=== PATIENT | male | born 1955 | race Caucasian/White ===

== ENCOUNTER → 2019-08-28 13:51 | Outpatient (BNVA) | payer MEDICARE, MEDICAID, SELFPAY | PROVIDERS: Family Provider Family Medicine; Visit Provider Psychiatry & Neurology Psychiatry | DX: F20.89 Other schizophrenia (principal) | CPT/HCPCS: 99213; J2680 ==

== ENCOUNTER → 2019-09-26 12:45 | Outpatient (BNVA) | payer MEDICARE, MEDICAID, SELFPAY | PROVIDERS: Family Provider Family Medicine; PCP Family Medicine; Visit Provider Psychiatry & Neurology Psychiatry | DX: F20.89 Other schizophrenia (principal); F17.210 Nicotine dependence, cigarettes, uncomplicated; J43.9 Emphysema, unspecified | CPT/HCPCS: 99213; 83036; J2680 ==

== ENCOUNTER → 2019-10-24 13:03 | Outpatient (BNVA) | payer MEDICARE, MEDICAID, SELFPAY | PROVIDERS: Family Provider Family Medicine; PCP Family Medicine; Visit Provider Psychiatry & Neurology Psychiatry | DX: F20.89 Other schizophrenia (principal); F17.210 Nicotine dependence, cigarettes, uncomplicated | CPT/HCPCS: 99213; J2680 ==

== ENCOUNTER → 2019-11-21 07:10 | Outpatient (BNVA) | payer MEDICARE, MEDICAID, SELFPAY | PROVIDERS: Family Provider Family Medicine; PCP Family Medicine; Visit Provider Psychiatry & Neurology Psychiatry | DX: F20.89 Other schizophrenia (principal) | CPT/HCPCS: 99212 ==

== ENCOUNTER → 2019-12-19 07:31 | Outpatient (BNVA) | payer MEDICARE, MEDICAID, SELFPAY | PROVIDERS: Family Provider Family Medicine; PCP Family Medicine; Visit Provider Psychiatry & Neurology Psychiatry | DX: F20.89 Other schizophrenia (principal) | CPT/HCPCS: 99212; J2680 ==

== ENCOUNTER 2020-01-09 13:52 | Outpatient (CLI) | payer MEDICARE, MEDICAID, SELFPAY ==
--- NOTE | 2020-01-09 13:59 | CT_ITS ---
WS: [id number] LDCT LUNG CANCER SCREENING TECHNIQUE: Noncontrast CT of the chest with coronal and sagittal reformatted images. CLINICAL INFORMATION: LUNG SCREEN COMPARISON: None. DLP: 59.83 mGy.cm DIvol: 1.[address] scans at [facility] use at least one of these dose optimization techniques: automat ed exposure control; mA and/or kV adjustment per patient size (includes targeted exams where dose is matched to clinical indication); or iterative reconstruction. FINDINGS: Moderate chronic emphysematous changes. Subsegmental atelectasis in the lung bases. Fibrosis right mi ddle lobe. Aortic calcification. Coronary calcification. No mediastinal or hilar lymphadenopathy. Sma ll esophageal hiatal hernia. Hypertrophic changes thoracic spine. CT/CT lung screening [id number] IMPRESSION: LUNG-RADS: 1-Negative FOLLOW UP: 1 Month LDCT
== END 2020-01-09 13:53 | disposition home or self-care (01) ==
PROVIDERS: PCP Family Medicine; Visit Provider Family Medicine
DX: Z12.2 Encounter for screening for malignant neoplasm of respiratory organs (principal); Z87.891 Personal history of nicotine dependence
CPT/HCPCS: G0297

== ENCOUNTER → 2020-01-17 08:33 | Outpatient (BNVA) | payer MEDICARE, MEDICAID, SELFPAY | PROVIDERS: PCP Family Medicine; Visit Provider Nurse Practitioner Psychiatric/Mental Health | DX: F20.89 Other schizophrenia (principal); F17.200 Nicotine dependence, unspecified, uncomplicated | CPT/HCPCS: 99212; J2680 ==

== ENCOUNTER → 2020-02-14 07:36 | Outpatient (BNVA) | payer MEDICARE, MEDICAID, SELFPAY | PROVIDERS: PCP Family Medicine; Visit Provider Psychiatry & Neurology Psychiatry | DX: F20.89 Other schizophrenia (principal) | CPT/HCPCS: 99213; J2680 ==

== ENCOUNTER → 2020-03-12 12:36 | Outpatient (BNVA) | payer MEDICARE, MEDICAID, SELFPAY | PROVIDERS: PCP Family Medicine; Visit Provider Psychiatry & Neurology Psychiatry | DX: F20.89 Other schizophrenia (principal); F43.12 Post-traumatic stress disorder, chronic | CPT/HCPCS: 99213 ==

== ENCOUNTER → 2020-04-09 09:41 | Outpatient (BNVA) | payer MEDICARE, MEDICAID, SELFPAY | PROVIDERS: PCP Family Medicine; Visit Provider Psychiatry & Neurology Psychiatry | DX: F20.89 Other schizophrenia (principal); F31.81 Bipolar II disorder; F41.0 Panic disorder [episodic paroxysmal anxiety] | CPT/HCPCS: 99213; J2680 ==

== ENCOUNTER → 2020-05-07 12:53 | Outpatient (BNVA) | payer MEDICARE, MEDICAID, SELFPAY | PROVIDERS: PCP Family Medicine; Visit Provider Psychiatry & Neurology Psychiatry | DX: F20.89 Other schizophrenia (principal); F17.210 Nicotine dependence, cigarettes, uncomplicated | CPT/HCPCS: 99213; J2680 ==

== ENCOUNTER → 2020-06-05 12:17 | Outpatient (BNVA) | payer MEDICARE, MEDICAID, SELFPAY | PROVIDERS: PCP Family Medicine; Visit Provider Psychiatry & Neurology Psychiatry | DX: F20.89 Other schizophrenia (principal); F17.210 Nicotine dependence, cigarettes, uncomplicated; Z79.899 Other long term (current) drug therapy | CPT/HCPCS: 80061; 83036; 99213; J2680 ==

== ENCOUNTER 2020-06-27 13:14 | Outpatient (CLI) | payer MEDICARE, MEDICAID, SELFPAY ==
[2020-06-06 14:23] VITALS: BP 110/75; BMI 26.6
--- NOTE | 2020-06-27 13:18 | CT_ITS ---
WS: [id number] LDCT LUNG CANCER SCREENING TECHNIQUE: Noncontrast CT of the chest with coronal and sagittal reformatted images. CLINICAL INFORMATION: NICOTINE DEPENDENCE,CIGARETTES COMPARISON: CT January 09, 2020 DLP: 77.13 mGy.cm DIvol: 2.[address] scans at [facility] use at least one of these dose optimization techniques: automat ed exposure control; mA and/or kV adjustment per patient size (includes targeted exams where dose is matched to clinical indication); or iterative reconstruction. FINDINGS: Moderate chronic emphysematous changes. Subsegmental atelectasis right lower lobe. Subsegmental atele ctasis in the lingula. 4 mm nodular thickening along right upper lobe fissure. New Patchy nodular infiltrate in the left upp er lobe anterior and medially with subsegmental atelectasis extending to the left hilum. Recommend co rrelation for pneumonia. RECOMMEND [address] INTERVAL FOLLOW-UP AFTER TREATMENT. Aortic and coronary calcification. No mediastinal or hilar lymphadenopathy. Small esophageal hiatal h ernia. Hypertrophic changes thoracic spine. CT/CT lung screening [id number] IMPRESSION: LUNG-RADS: 3-Probably Benign FOLLOW UP: [address] with or without contrast
== END 2020-06-27 13:15 | disposition home or self-care (01) ==
LOC: CT 13:15
PROVIDERS: PCP Family Medicine; Visit Provider Family Medicine
DX: Z12.2 Encounter for screening for malignant neoplasm of respiratory organs (principal); F17.210 Nicotine dependence, cigarettes, uncomplicated; K44.9 Diaphragmatic hernia without obstruction or gangrene
CPT/HCPCS: G0297

== ENCOUNTER → 2020-07-03 12:11 | Outpatient (BNVA) | payer MEDICARE, MEDICAID, SELFPAY ==
[2020-06-06 14:23] VITALS: BP 110/75; BMI 26.6
== END ==
PROVIDERS: PCP Family Medicine; Visit Provider Psychiatry & Neurology Psychiatry
DX: F20.89 Other schizophrenia (principal); F17.210 Nicotine dependence, cigarettes, uncomplicated
CPT/HCPCS: 99213; J2680

== ENCOUNTER 2020-07-23 11:45 | Outpatient (CLI) | payer MEDICARE, MEDICAID, SELFPAY ==
[2020-06-06 14:23] VITALS: BP 110/75; BMI 26.6
--- NOTE | 2020-07-23 12:01 | CT_ITS ---
WS: [id number] CT CHEST WITHOUT INTRAVENOUS CONTRAST HISTORY: PULMONARY NODULE TECHNIQUE: Contiguous 5 mm axial imaging performed on the thorax. Coronal and sagittal reformats are submitted. All CT scans at [facility] use at least one of these dose optimization techniq ues: automated exposure control; mA and/or kV adjustment per patient size (includes targeted exams wh ere dose is matched to clinical indication); or iterative reconstruction. CONTRAST: None DLP: 843.74 mGycm COMPARISON: 06/27/2020 Lungs and central airway: Severe pulmonary hyperinflation. Significant increase in the mass like cons olidation in the medial LEFT apex. Mass abuts the LEFT mediastinal structures and mediastinal fat. Th is area of consolidation extends over length of 5.3 cm x 3.9 x 4.9 cm. There is adjacent interstitial thickening and stranding. Additional dependent changes at the lung bases bilaterally. Pleura: Normal. No pleural effusion. Heart and pericardium: Normal size heart with no pericardial effusion. Mediastinum and lizzie: Small subcentimeter mediastinal and hilar lymph nodes. Vessels: Moderate atherosclerosis thoracic aorta with no aneurysm. Chest wall and lower neck: No soft tissue masses. Upper abdomen: No adrenal mass. Visualized liver is negative. There is marked distention of the stoma ch with fluid. Osseous structures: Moderate thoracic spondylosis. No osteoblastic or osteolytic bone disease. CT/CT chest wo con [id number] IMPRESSION: 1. Significant progression of the consolidation and masslike density in the me dial LEFT upper lobe measuring 5.3 x 3.9 x 4.9 cm. Significant progression sinc e 06/27/2020. Recommend additional evaluation to exclude malignancy. This still may be a consolidation related to pneumonia. Suggest evaluation with bronchosco py. This would not be accessible for CT-guided biopsy. PET/CT may also be helpf ul. 2. Marked emphysema.
== END 2020-07-23 11:46 | disposition home or self-care (01) ==
LOC: RADWPI 11:50
PROVIDERS: PCP Family Medicine; Visit Provider Family Medicine
DX: R91.1 Solitary pulmonary nodule (principal); J43.9 Emphysema, unspecified
CPT/HCPCS: 71250

== ENCOUNTER → 2020-07-31 12:46 | Outpatient (BNVA) | payer MEDICARE, MEDICAID, SELFPAY ==
[2020-06-06 14:23] VITALS: BP 110/75; BMI 26.6
== END ==
PROVIDERS: PCP Family Medicine; Visit Provider Psychiatry & Neurology Psychiatry
DX: F20.89 Other schizophrenia (principal); F17.210 Nicotine dependence, cigarettes, uncomplicated
CPT/HCPCS: 99213; J2680

== ENCOUNTER → 2020-08-25 10:51 | Outpatient (BNVA) | payer MEDICARE, MEDICAID, SELFPAY ==
[2020-06-06 14:23] VITALS: BP 110/75; BMI 26.6
== END ==
PROVIDERS: PCP Family Medicine; Visit Provider Internal Medicine Pulmonary Disease
DX: J44.9 Chronic obstructive pulmonary disease, unspecified (principal); Z20.828 Contact with and (suspected) exposure to other viral communicable diseases
CPT/HCPCS: 87635

== ENCOUNTER 2020-08-28 06:31 | Day surgery (SDC) | payer MEDICARE, MEDICAID, SELFPAY ==
[2020-06-06 14:23] VITALS: BP 110/75; BMI 26.6
[2020-08-27 14:56] VITALS: BMI 25.9
[2020-08-28] VITALS (7 sets, daily range): BP systolic 115–148; BP diastolic 63–86; PULSE 90–112; RESP 16–18; TEMP 36.1–37; O2SAT 92–96
--- NOTE | 2020-08-28 | CT_ITS ---
Guided Bronchoscopy Planning CT images; total exam DLP: 657.87 mGy-cm MTDD
[2020-08-28] MEDS: sodium chloride 0.9% 1,000 ML 30 ML IV (07:30)
--- NOTE | 2020-08-28 08:22 | W.PM.OPSFHP ---
Same Day Surgery H&P Indication for Procedure/HPI DATE OF PROCEDURE: August 28, 2020 CHIEF COMPLAINT/INDICATIONFOR SURGICAL PROCEDURE: This is a 64-year-old gentleman coming in for bronchoscopic evaluation for rapidly enlarging left upper lobe lung mass PREOP DIAGNOSIS: Suspected lung cancer PLANNED PROCEDRUE: Operation Date: 08/28/20 08:10 Proposed Procedures p Navigation Bronchoscopy 00566(Not Applicable) - Brendon Dejesus MD s [place] [id number](Not Applicable) - Brendon Dejesus MD This is a 64-year-old gentleman with a past medical history of COPD, active smoker, atrial flutter on Pradaxa who is here today for bronchoscopic evaluation for rapidly enlarging left upper lobe lung mass with suspicion for lung cancer. The patient had a low-dose CT scan in December 2019 which was negative for any suspicious pulmonary nodule or mediastinal or hilar lymphadenopathy. There is a repeat CT scan in June 2020 which showed a 4 mm nodular thickening along the left upper lobe fissure and patchy infiltrate in the left upper lobe in the anterior and medially with subsegmental atelectasis extending into the left hilum. Repeat CT scan on July 23 revealed progression of the consolidation and masslike lesion measuring 5.3 x 3.9 x 4.9 cm. The patient is an active smoker and not planning to quit smoking. He has chronic cough, sputum production, wheezing and exertional shortness of breath. He has lost 5 pounds in the past 2 months. Medications/Allergies* Home Medications Medication Instructions Recorded Confirmed Type albuterol sulfate 90 mcg/actuation 2 puff INHALATION Q6H PRN 09/13/19 08/28/20 History aerosol inhaler atorvastatin 20 mg tablet 20 mg PO QDAY 09/13/19 08/28/20 History azelastine 137 mcg (0.1 %) nasal 1 spray INTRANASAL BID 09/13/19 08/28/20 History spray aerosol dabigatran etexilate 150 mg capsule 150 mg PO BID 09/13/19 08/27/20 History diltiazem HCl 60 mg tablet 60 mg PO TID 09/13/19 08/28/20 History docusate sodium 100 mg capsule 100 mg PO QDAY 09/13/19 08/28/20 History metoprolol tartrate 25 mg tablet 12.5 mg PO BID 09/13/19 08/28/20 History omega-3 fatty acids 1,000 mg 1,000 mg PO QDAY 09/13/19 08/28/20 History capsule umeclidinium 62.5 mcg-vilanterol 1 inh INHALATION Q24H 09/13/19 08/28/20 History 25 mcg/actuation powdr for inhalation fluphenazine enanthate 25 mg/mL 75 mg .ROUTE DIRECTED 11/21/19 08/28/20 History injection solution potassium gluconate 600 mg (99 mg) 600 mg PO DAILY 05/07/20 08/28/20 History tablet multivitamin 1 cap PO DAILY 07/31/20 08/28/20 History cetirizine 10 mg tablet 10 mg PO QDAY tab 08/19/20 08/28/20 History Allergies/Adverse Reactions Allergy/AdvReac Type Severity Reaction Status Date / Time Androgenic Anabolic Steroid Allergy Unknown ALGY-Anaphy Verified 08/28/20 06:52 laxis diphenhydramine Allergy couldnt Verified 08/28/20 06:52 [From Benadryl] breath through nose fexofenadine [From Pamela] Allergy Unknown Verified 08/28/20 06:52 fluticasone [From Flonase] Allergy ALGY-Difficulty Verified 08/28/20 06:52 Breathing ibuprofen [From Motrin] Allergy Unknown Verified 08/28/20 06:52 shellfish derived Allergy swelling Verified 08/28/20 06:52 Pertinent History/Comorbid Conditions* Medical History (Updated 08/19/20 @ 13:25 by Morgan Boss MD) [id number] deficiency Anticoagulation adequate Pradaxa Chronic back pain Cigarette smoker COPD (chronic obstructive pulmonary disease) Hx of atrial flutter Hyperlipidemia Insomnia Other schizophrenia Surgical History (Updated 09/17/19 @ 14:31 by Zac Seay MD) S/P thyroidectomy Family History (Updated 06/04/20 @ 09:34 by Christiane Jorgensen RN) Cancer Social History Smoking and tobacco status: current every day smoker cigarettes Packs smoked per day: 2 Years cigarettes smoked: 48 Quit status (tobacco): not considering quitting Second hand smoke exposure: No Smoking risk assessment/counseling performed?: Yes Alcohol intake: former Adopted: No Caregiver/support person: Yes Lives independently: Yes Household members: none Housing: Apartment Marital status: Single Number of children: 0 Number of grandchildren: 0 Highest education level completed: Some College, No Degree service: Yes Current occupational status: disabled Pets and animals: No History of recent travel: No Leisure activites: music and other Leisure activities details: watch news Current gender identity: Male Nenita/Latter-Day: Tenriism Special nenita needs: No Agree to transfusion: Yes Financial difficulty paying for basics: Not Very Hard Pertinent Exam Findings alert, oriented x 3 and regular rate & rhythm The patient has reduced breath sound bilaterally with prolonged expiration, diffuse wheezing and rhonchi in the left upper lung zone Recommendations Surgery/Procedure today Coding Level 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
[2020-08-28] MEDS: lidocaine 1% INJ 20 mL XX (08:51)
--- NOTE | 2020-08-28 08:52 | ANES.PREANE2 ---
Pre-Anesthetic Assessment Pre-Anesthetic Assessment: Height/Weight: Height 1.75 m Weight 79.832 kg Temp Pulse Resp BP Pulse Ox 98.6 F 90 18 115/74 95 08/28/20 07:09 08/28/20 07:09 08/28/20 07:09 08/28/20 07:09 08/28/20 07:09 Preop Diagnosis: Suspected lung cancer Proposed Procedure: Operation Date: 08/28/20 08:10 Proposed Procedures p Navigation Bronchoscopy 80110(Not Applicable) - Brendon Dejesus MD s [place] [id number](Not Applicable) - Brendon Dejesus MD Familial anesthetic complications: None Was Beta Blane taken within 24 hours: N/A Last intake: Intake Last Liquid Date 08/27/20 Last Liquid Time 23:00 Last Solid Date 08/27/20 Last Solid Time 23:00 Social: Social History: Tobacco and No alcohol Exam: Pre-Anes Outpt Exam: alert, oriented x 3, clear to auscultation bilaterally and regular rate & rhythm Airway: Cervical ROM: WNL MP: 3 Dentition: Full Pulmonary: Pulmonary: COPD Comments: alpha 1 deficiency CV/HEM: Comments: A flutter Metabolic: Metabolic: Hyperlipidemia Anesthetic Plan: ASA status: 3 Anesthesia: General Risk of > 500 ml blood loss (7ml/kg in children): No PFSH Anesthesia PFSH: Medical History Gxjet-0-[id number] deficiency Anticoagulation adequate Pradaxa Chronic back pain Cigarette smoker COPD (chronic obstructive pulmonary disease) Hx of atrial flutter Hyperlipidemia Insomnia Other schizophrenia Surgical History S/P thyroidectomy Family History Other Cancer Social History Smoking and tobacco status: current every day smoker cigarettes Packs smoked per day: 2 Years cigarettes smoked: 48 Quit status (tobacco): not considering quitting Second hand smoke exposure: No Smoking risk assessment/counseling performed?: Yes Alcohol intake: former Adopted: No Caregiver/support person: Yes Lives independently: Yes Household members: none Housing: Apartment Marital status: Single Number of children: 0 Number of grandchildren: 0 Highest education level completed: Some College, No Degree service: Yes Current occupational status: disabled Pets and animals: No History of recent travel: No Leisure activites: music and other Leisure activities details: watch news Current gender identity: Male Nenita/Buddhist: Confucianism Special nenita needs: No Agree to transfusion: Yes Financial difficulty paying for basics: Not Very Hard Data Anesthesia Cardiac Studies: No Data to Display
[2020-08-28] MEDS: EPINEPHrine 1 mg/mL INJ XX (09:15)
--- NOTE | 2020-08-28 10:37 | PM.OP ---
Operative Report Date of procedure: August 28, 2020 Pre-op Diagnosis: Suspected lung cancer Post-op diagnosis: same Brief History: 64-year-old gentleman with rapidly enlarging left upper lobe masslike lesion coming in for bronchoscopic evaluation for suspicion for lung cancer. Procedure: Name of the procedure: Bronchoscopy with inspection of the airway, bronchoalveolar lavage, endobronchial biopsies, endobronchial ultrasound-guided transbronchial needle aspiration of lymph nodes and control of bleeding. Indication: Suspicion for lung cancer Anesthesia: General anesthesia. Local anesthesia: The vocal cords, right and left mainstem bronchus anesthetized with 1% lidocaine. Description of the procedure: The procedure was explained to the patient and the consent was obtained. The patient was brought to the OR. The patient underwent laryngeal mask airway for general anesthesia. Following induction of general anesthesia, the bronchoscope was advanced through the Flor. The vocal cords were anesthetized with 1% lidocaine. The upper and lower trachea anesthetized with 1% lidocaine. The lower trachea appeared to be mildly erythematous. The bronwyn was sharp. The bronwyn, the right and left mainstem bronchi are anesthetized with 1% lidocaine. In a systematic manner bilateral bronchial tree was then examined. The bronchoscope was advanced into the left mainstem bronchus. The left upper lobe bronchus was patent. In the apical segment of the left upper lobe bronchus and endobronchial lesion with pearly white appearance was noted. The anterior and posterior segment bronchi are patent. The lingula and left lower lobe bronchi were examined up to the third subsegmental level and no abnormalities were identified. The bronchoscope was then introduced into the right mainstem bronchus. The right upper lobe, right middle lobe and right lower lobe bronchi were examined up to the third subsegmental level and no abnormalities were identified. There was mucus throughout the airways. Endobronchial biopsies were performed from the endobronchial mass in the left upper lobe. Multiple samples were obtained. Bronchoalveolar lavage was performed from left upper lobe. 60 mL of saline was instilled, fluid return was 17 mL. The fluid was bloody. The endobronchial ultrasound was introduced through the ET tube. Lymphadenopathy in station 7 and 11 L are noted. Endobronchial sound guided transbronchial needle aspiration was performed from station 7 and 11 L. Samples: 1. Bronchoalveolar lavage specimen was sent for Gram stain culture, AFB smear and culture, fungal stain culture and cytology. 2. The endobronchial biopsies are sent for histopathology. 3. The transbronchial needle aspiration of the aforementioned lymph node groups were sent for cytology and histopathology. Complications: There was no immediate complications. No significant active bleeding post procedure. Frozen section of the endobronchial biopsy revealed non-small cell lung cancer.
--- NOTE | 2020-08-28 10:38 | SUR.OPER ---
ebus balloon removed intact
[2020-08-28] MEDS: dexamethasone 4 mg/mL INJ IVP (10:44)
--- NOTE | 2020-08-28 10:59 | PTH.FRZRPT ---
Frozen Section Notes Specimen(s): Lung, left upper lobe, anterior segment. Gross: The specimen is submitted fresh for EBUS and frozen section diagnosis, left upper lobe anterior segment 0.2 cm fragment in greatest dimension. The specimen is submitted in FSA1. Preliminary Impression: Lung, left upper lobe anterior segment, biopsy (FSA1): - Non small cell carcinoma. - Specimen Information Pathologist: Tashi Landeros Date: 08/28/20 Specimen reported at what time: 09:27 - Clinician Specimen collection time: 09:15 Clinician reported to: Brendon Dejesus
--- NOTE | 2020-08-28 19:33 | ANE.PACU2 ---
Inpatient post-anesthesia follow up: Airway intact: Yes Vital signs: Temperature 97.0 F Pulse Rate 90 Respiratory Rate 18 Blood Pressure 124/84 Pulse Oximetry 96 Oxygen Delivery Me thod Room Air Oxygen Flow Rate 8 Fraction of Inspir ed Oxygen Hydration adequate: Yes Nausea and vomiting: No Pain level: 1 Mental status: Baseline
== END 2020-08-28 11:51 | disposition home or self-care (01) ==
PROVIDERS: PCP Family Medicine; Visit Provider Internal Medicine Critical Care Medicine
PROC: 0BJ08ZZ Inspection of Tracheobronchial Tree, Via Natural or Artificial Opening Endoscopic (ICD-10-PCS; CPT 31622; principal; 2020-08-28 08:10)
PROC: BB4BZZZ Ultrasonography of Pleura (ICD-10-PCS; 2020-08-28 08:10)
DX: C34.12 Malignant neoplasm of upper lobe, left bronchus or lung (principal); J44.9 Chronic obstructive pulmonary disease, unspecified; E78.5 Hyperlipidemia, unspecified; F17.210 Nicotine dependence, cigarettes, uncomplicated
CPT/HCPCS: 12345; 31622; 31627; 31628; 77011; 80500; 88112; 88305; J0171; J1100; J2250; J2370; J2704; J3010; J3490; J7030

== ENCOUNTER → 2020-09-03 13:20 | Outpatient (BNVA) | payer MEDICARE, MEDICAID, SELFPAY ==
[2020-06-06 14:23] VITALS: BP 110/75; BMI 26.6
== END ==
PROVIDERS: PCP Family Medicine; Visit Provider Psychiatry & Neurology Psychiatry
DX: F20.89 Other schizophrenia (principal); F17.210 Nicotine dependence, cigarettes, uncomplicated
CPT/HCPCS: 99213; J2680

== ENCOUNTER 2020-09-09 14:00 | Outpatient (CLI) | payer MEDICARE, MEDICAID, SELFPAY ==
[2020-06-06 14:23] VITALS: BP 110/75; BMI 26.6
--- NOTE | 2020-09-09 16:00 | ONC CON_ITS ---
Dr. Melchor New Patient Note Patient: Bradley Edwards Unit #: [id number]: [id number] Dicatated By: Jay Melchor M.D.Date of Visit: Sep 09, 2020 Onc MED New Patient/Consult Referring Physician: Dr. RAHEEL PETERSEN M.D. Morgan Datar History of Present Illness: Mr. Bradley Edwards, is a 64-year-old gentleman with a history of schizophrenia, COPD, atrial flutter and alpha 1 antitrypsin deficiency recently underwent bronchoscopy on August 28, 2020 for progressive left upper lobe of lung nodule, as per medical record his low-dose CT scan of chest done in December 2019 was negative for any suspicious pulmonary nodule or mediastinal or hilar lymphadenopathy. As repeat CT scan of chest done in June 2020 showed 4 mm noduler thickening along the left upper lobe fissure and patchy infiltrate in the left upper lobe and the anterior and medial with subsegmental atelectasis extending into left hilum. And repeat CT scan done on July 23, 2020 showed progression of the consolidation masslike lesion measuring 5.3 x 3.9 x 4.9 cm, patient was referred to pulmonology and as mentioned above on August 28, 2020 he underwent bronchoscopy and FNA from left upper lobe anterior segment showed squamous cell carcinoma and second biopsy also showed squamous cell carcinoma and lymph node from station 7 was positive for metastatic squamous cell carcinoma whereas from station 11 was negative. And immunohistochemistry was negative for TTF-1, Napsin and CK20 but positive for CK cocktail, M CK, CK 5/6 and weakly positive p63 and focally positive for CK7 Patient is a active smoker with a longstanding history of smoking but denies any history of hemoptysis or hematemesis. Patient said, not sure but may have loss some weight denies any headaches blurred vision or double vision, denies any chest pain, denies any jaundice, denies any new bony pains except history of chronic lower back pain. Also has history of chronic cough and offered on wheezing or dyspnea on exertion. Patient has history of psychiatric disorder like schizophrenia as mentioned in the medical record and being followed by Dr. Chatman at [facility]. Past Medical History: Mr. Edwards'amandeep medical history consists of Alpha-1 antitrypsin deficiency, atrial flutter, chronic back pain, chronic obstructive pulmonary disease, hyperlipidemia, insomnia, and schizoaffective disorder. Past Surgical History: Mr. Edwards'amandeep surgical/procedural history consists of bronchoscopy and thyroidectomy. Medications: Albuterol Sulfate HFA 2 - 4 Puff(s) (of 108 (90 base) mcg/act) Aerosol, solution Inhalation PRN, Anoro Ellipta 1 Puff(s) (of 62.5-25 mcg/inh) Aerosol Powder, Breath Activated Inhalation daily, Atorvastatin Calcium 1 Tablet (of 20 mg) Oral daily, Azelastine HCl 2 Madeline(s) Solution Nasal b.i.d., Azelastine HCl 2 Madeline(s) (of 137 mcg/spray) Solution Nasal b.i.d., CertaVite Senior/Antioxidant 1 Tablet Oral daily, Cetirizine HCl 1 Tablet (of 10 mg) Oral daily, clonazePAM 1 Tablet (of 1 mg) Oral at bedtime, dilTIAZem HCl 1 Tablet (of 60 mg) Oral t.i.d., DOK 1 Capsule (of 100 mg) Oral daily, fluPHENAZine HCl 1 Tablet (of 5 mg) Oral at bedtime, Metoprolol Tartrate 0.5 Tablet (of 25 mg) Oral b.i.d., Potassium Gluconate 1 Tablet (of 595 (99 k) mg) Oral daily, Pradaxa 1 Capsule (of 150 mg) Oral b.i.d., traZODone HCl 1.5 Tablet (of 100 mg) Oral at bedtime, traZODone HCl 1 Tablet (of 150 mg) Oral at bedtime, Trihexyphenidyl HCl 1 Tablet (of 2 mg) Oral at bedtime Allergies: Pamela, diphenhydrAMINE HCl, Motrin, nasal agents, Shellfish, and steroids. Social History: Mr. Edwards is single and he is a disabled. He is a daily smoker who has smoked 2.0 packs/day for 48 years. He is a former drinker. He has indicated exposure to the following products: cigarettes. He quit drinking more than 20 years ago. Family History: His mother had breast cancer and sister was treated for ovarian cancer. Review Of Symptoms: Constitutional - Appetite is good and weight is stable. No fever, night sweats, or hot flashes. Energy level is good, ENMT - Positive for sinus congestion/drainage. No mouth sores. No sore throat or difficulty swallowing, Hematologic/Lymphatic - Pt bruises easily, Respiratory - No shortness of breath. Positive for cough. No pleuritic pain or hemoptysis, Cardiovascular - No angina pain. No palpitations, Gastrointestinal - No nausea or vomiting. No heartburn or acid reflux. No diarrhea or constipation. No blood in the stool or black stools, Genitourinary (M) - No dysuria or hematuria. No urinary frequency. No urgency or incontinence, Musculoskeletal - No joint or bone pain, Neurologic - No headache or dizziness. No numbness or tingling. No other focal neurologic symptoms, Psychiatric - Positive for anxiety, depression and insomnia. Vital Signs: Performed on Sep 09, 2020 14:36: 0, 24.24, 1.99 sq.m, 71.00 in, 96 %, 83 /min, 18 /min, 109/71 mm(hg), 98.6 F, and 173.8 lbs (LOW). Performance Status: 1 - No physically strenuous activity, but ambulatory and able to carry out light or sedentary work (e.g. office work, light house work). (ECOG) Physical Examination: ENMT - Patient was not very cooperative and was in pete to leave but denies any mouth sores or thrush, Respiratory - Patient denies any shortness of breath, Cardiovascular - Denies any palpitation, Abdomen - Denies any abdominal pain, Extremities - Denies any swelling or edema. Lab/Imaging: Most recent lab results are not available for this patient. 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 And positive for CK cocktail, M CK, CK 5/6, CK7 CT PET scan done on August 30, 2020 showed 1.5 x 2.2 cm solid nodule in the suprahilar left upper lobe with SUV of 11.2, and a 2.5 cm solid lesion in the medial left upper lobe, contiguous with the mediastinum has SUV of 3.9, has a diffuse activity, more suggestive of round atelectasis. Right middle lobe scarring is FDG negative. There is activity in multiple mediastinal lymph nodes in subcarinal, subaortic, left paratracheal, right paratracheal and index node is subcarinal region measuring 2.0 cm with SUV of 4.1 and there is a mild activity in the prominent right supraclavicular lymph node measuring 1.3 cm potentially malignant. Clinical stage T3 (2 separate lesions same left upper lobe), N3 (bilateral paratracheal and right supraclavicular per CT PET scan) COPD Chronic smoking, still active Schizophrenia/mental disorder, now being followed by Dr. Chatman at [facility]. Plan: Discussed with patient and his sister/legal guardian Ivonne Tijerina who is herself a cancer survivor with history of ovarian cancer treated by Dr. Limon in the past. Regarding patient's disease status and treatment option, to complete staging work-up would recommend MRI scan of the brain and if negative then, as clinically, he has stage IIIc disease (T3 ,N 3 ) e.g. unresectable so combined chemoradiation with weekly carboplatin and Taxol would be recommended followed by maintenance immunotherapy Patient refused combined chemoradiation, knowing the risk versus benefits. And his sister, Ivonne Yuan who is the legal guardian too, would support her brother's decision. Patient and his sister both were suggested to discuss with his psychiatrist Dr. Chatman for patient's competency to make decision but Ms. Yuan, said, being his legal guardian she has authority to make decision on her brother's behalf. But she said she would discuss with him and Dr. Chatman and would call back for a return appointment if and when patient or she will make a decision. And she will call us regarding further planning.Again patient and his guardian Ms. Yuan were suggested second opinion from tertiary care or other oncologist but they declined. Signed By: Jay Melchor M.D. <<Signature on File>>
== END 2020-09-09 14:01 | disposition home or self-care (01) ==
LOC: ONCMED 14:04
PROVIDERS: PCP Family Medicine; Visit Provider Internal Medicine Hematology & Oncology
DX: C34.12 Malignant neoplasm of upper lobe, left bronchus or lung (principal); C77.8 Secondary and unspecified malignant neoplasm of lymph nodes of multiple regions; J44.9 Chronic obstructive pulmonary disease, unspecified; F17.210 Nicotine dependence, cigarettes, uncomplicated; F20.9 Schizophrenia, unspecified; Z79.899 Other long term (current) drug therapy
CPT/HCPCS: 99204

== ENCOUNTER → 2020-10-03 14:11 | Outpatient (BNVA) | payer MEDICARE, MEDICAID, SELFPAY ==
[2020-06-06 14:23] VITALS: BP 110/75; BMI 26.6
== END ==
PROVIDERS: PCP Family Medicine; Visit Provider Psychiatry & Neurology Psychiatry
DX: F20.89 Other schizophrenia (principal); F17.210 Nicotine dependence, cigarettes, uncomplicated
CPT/HCPCS: 99213; J2680

== ENCOUNTER → 2020-10-30 13:00 | Outpatient (BNVA) | payer MEDICARE, MEDICAID, SELFPAY ==
[2020-06-06 14:23] VITALS: BP 110/75; BMI 26.6
== END ==
PROVIDERS: PCP Family Medicine; Visit Provider Psychiatry & Neurology Psychiatry
DX: F20.89 Other schizophrenia (principal); F17.210 Nicotine dependence, cigarettes, uncomplicated
CPT/HCPCS: 99213; J2680

== ENCOUNTER → 2020-11-27 13:09 | Outpatient (BNVA) | payer MEDICARE, MEDICAID, SELFPAY ==
[2020-06-06 14:23] VITALS: BP 110/75; BMI 26.6
== END ==
PROVIDERS: PCP Family Medicine; Visit Provider Psychiatry & Neurology Psychiatry
DX: F20.89 Other schizophrenia (principal); F17.210 Nicotine dependence, cigarettes, uncomplicated
CPT/HCPCS: 99213; J2680

== ENCOUNTER → 2020-12-25 13:20 | Outpatient (BNVA) | payer MEDICARE, MEDICAID, SELFPAY ==
[2020-06-06 14:23] VITALS: BP 110/75; BMI 26.6
== END ==
PROVIDERS: PCP Family Medicine; Visit Provider Psychiatry & Neurology Psychiatry
DX: F20.89 Other schizophrenia (principal); F17.210 Nicotine dependence, cigarettes, uncomplicated
CPT/HCPCS: 99213; J2680

== ENCOUNTER → 2021-01-23 14:29 | Outpatient (BNVA) | payer MEDICARE, MEDICAID, SELFPAY ==
[2020-06-06 14:23] VITALS: BP 110/75; BMI 26.6
== END ==
PROVIDERS: PCP Family Medicine; Visit Provider Psychiatry & Neurology Psychiatry
DX: F20.89 Other schizophrenia (principal); F17.210 Nicotine dependence, cigarettes, uncomplicated
CPT/HCPCS: 99213; J2680

== ENCOUNTER → 2021-02-19 12:59 | Outpatient (BNVA) | payer MEDICARE, MEDICAID, SELFPAY ==
[2020-06-06 14:23] VITALS: BP 110/75; BMI 26.6
== END ==
PROVIDERS: PCP Family Medicine; Visit Provider Psychiatry & Neurology Psychiatry
DX: F20.89 Other schizophrenia (principal); F17.210 Nicotine dependence, cigarettes, uncomplicated
CPT/HCPCS: 99213; J2680

== ENCOUNTER → 2021-03-13 10:43 | Outpatient (BNVA) | payer MEDICARE, MEDICAID, SELFPAY ==
[2020-06-06 14:23] VITALS: BP 110/75; BMI 26.6
== END ==
PROVIDERS: PCP Family Medicine; Visit Provider Psychiatry & Neurology Psychiatry
DX: F30.8 Other manic episodes (principal); F20.89 Other schizophrenia; F17.210 Nicotine dependence, cigarettes, uncomplicated
CPT/HCPCS: 99214

== ENCOUNTER → 2021-03-19 13:10 | Outpatient (BNVA) | payer MEDICARE, MEDICAID, SELFPAY ==
[2020-06-06 14:23] VITALS: BP 110/75; BMI 26.6
== END ==
PROVIDERS: PCP Family Medicine; Visit Provider Psychiatry & Neurology Psychiatry
DX: F25.0 Schizoaffective disorder, bipolar type (principal); F17.210 Nicotine dependence, cigarettes, uncomplicated
CPT/HCPCS: 99213

== ENCOUNTER → 2021-04-16 13:05 | Outpatient (BNVA) | payer MEDICARE, MEDICAID, SELFPAY ==
[2020-06-06 14:23] VITALS: BP 110/75; BMI 26.6
== END ==
PROVIDERS: PCP Family Medicine; Visit Provider Psychiatry & Neurology Psychiatry
DX: F20.89 Other schizophrenia (principal); F17.210 Nicotine dependence, cigarettes, uncomplicated; F25.0 Schizoaffective disorder, bipolar type
CPT/HCPCS: 99213; J2680

== ENCOUNTER → 2021-05-14 14:00 | Outpatient (BNVA) | payer MEDICARE, MEDICAID, SELFPAY ==
[2020-06-06 14:23] VITALS: BP 110/75; BMI 26.6
== END ==
PROVIDERS: PCP Family Medicine; Visit Provider Psychiatry & Neurology Psychiatry
DX: F20.89 Other schizophrenia (principal); F25.0 Schizoaffective disorder, bipolar type; F17.210 Nicotine dependence, cigarettes, uncomplicated
CPT/HCPCS: 96372; J2680

== ENCOUNTER → 2021-06-10 13:14 | Outpatient (BNVA) | payer MEDICARE, MEDICAID, SELFPAY ==
[2020-06-06 14:23] VITALS: BP 110/75; BMI 26.6
== END ==
PROVIDERS: PCP Family Medicine; Visit Provider Psychiatry & Neurology Psychiatry
DX: F25.0 Schizoaffective disorder, bipolar type (principal)
CPT/HCPCS: 99213; J2680

== ENCOUNTER → 2021-07-09 13:07 | Outpatient (BNVA) | payer MEDICARE, MEDICAID, SELFPAY ==
[2020-06-06 14:23] VITALS: BP 110/75; BMI 26.6
== END ==
PROVIDERS: PCP Family Medicine; Visit Provider Psychiatry & Neurology Psychiatry
DX: F20.89 Other schizophrenia (principal); F25.0 Schizoaffective disorder, bipolar type; F17.210 Nicotine dependence, cigarettes, uncomplicated
CPT/HCPCS: 99213; J2680

== ENCOUNTER → 2021-08-06 13:10 | Outpatient (BNVA) | payer MEDICARE, MEDICAID, SELFPAY ==
[2020-06-06 14:23] VITALS: BP 110/75; BMI 26.6
== END ==
PROVIDERS: PCP Family Medicine; Visit Provider Psychiatry & Neurology Psychiatry
DX: F25.0 Schizoaffective disorder, bipolar type (principal); F20.89 Other schizophrenia; F17.210 Nicotine dependence, cigarettes, uncomplicated
CPT/HCPCS: 99213; J2680

== ENCOUNTER → 2021-09-03 11:11 | Outpatient (BNVA) | payer MEDICARE, MEDICAID, SELFPAY ==
[2020-06-06 14:23] VITALS: BP 110/75; BMI 26.6
== END ==
PROVIDERS: PCP Family Medicine; Visit Provider Nurse Practitioner Psychiatric/Mental Health
DX: F25.0 Schizoaffective disorder, bipolar type (principal)
CPT/HCPCS: 99213; J2680

== ENCOUNTER → 2021-10-01 13:14 | Outpatient (BNVA) | payer MEDICARE, MEDICAID, SELFPAY ==
[2020-06-06 14:23] VITALS: BP 110/75; BMI 26.6
== END ==
PROVIDERS: PCP Family Medicine; Visit Provider Psychiatry & Neurology Psychiatry
DX: F20.89 Other schizophrenia (principal); F17.210 Nicotine dependence, cigarettes, uncomplicated; F25.0 Schizoaffective disorder, bipolar type
CPT/HCPCS: 99213; J2680

== ENCOUNTER → 2021-10-21 13:32 | Outpatient (BNVA) | payer MEDICARE, MEDICAID, SELFPAY ==
[2020-06-06 14:23] VITALS: BP 110/75; BMI 26.6
== END ==
PROVIDERS: PCP Family Medicine; Visit Provider Psychiatry & Neurology Psychiatry
DX: F25.0 Schizoaffective disorder, bipolar type (principal); F17.210 Nicotine dependence, cigarettes, uncomplicated
CPT/HCPCS: 99215

== ENCOUNTER → 2021-10-29 12:55 | Outpatient (BNVA) | payer MEDICARE, MEDICAID, SELFPAY ==
[2020-06-06 14:23] VITALS: BP 110/75; BMI 26.6
== END ==
PROVIDERS: PCP Family Medicine; Visit Provider Nurse Practitioner Psychiatric/Mental Health
DX: Z03.89 Encounter for observation for other suspected diseases and conditions ruled out (principal); F25.0 Schizoaffective disorder, bipolar type; F20.89 Other schizophrenia; F17.210 Nicotine dependence, cigarettes, uncomplicated
CPT/HCPCS: 99214; J2680

== ENCOUNTER → 2021-11-03 11:06 | Outpatient (BNVA) | payer MEDICARE, MEDICAID, SELFPAY ==
[2020-06-06 14:23] VITALS: BP 110/75; BMI 26.6
== END ==
PROVIDERS: PCP Family Medicine; Visit Provider Psychiatry & Neurology Psychiatry
DX: Z03.89 Encounter for observation for other suspected diseases and conditions ruled out (principal)
CPT/HCPCS: 80053

== ENCOUNTER → 2021-11-26 13:09 | Outpatient (BNVA) | payer MEDICARE, MEDICAID, SELFPAY ==
[2020-06-06 14:23] VITALS: BP 110/75; BMI 26.6
== END ==
PROVIDERS: PCP Family Medicine; Visit Provider Psychiatry & Neurology Psychiatry
DX: F20.89 Other schizophrenia (principal); F17.210 Nicotine dependence, cigarettes, uncomplicated; F25.0 Schizoaffective disorder, bipolar type
CPT/HCPCS: 99214

== ENCOUNTER → 2021-12-24 12:32 | Outpatient (BNVA) | payer MEDICARE, MEDICAID, SELFPAY ==
[2020-06-06 14:23] VITALS: BP 110/75; BMI 26.6
== END ==
PROVIDERS: PCP Family Medicine; Visit Provider Psychiatry & Neurology Psychiatry
DX: F20.89 Other schizophrenia (principal); F25.0 Schizoaffective disorder, bipolar type; F17.210 Nicotine dependence, cigarettes, uncomplicated
CPT/HCPCS: 99213; J2680

== ENCOUNTER → 2022-01-21 13:13 | Outpatient (BNVA) | payer MEDICARE, MEDICAID, SELFPAY ==
[2020-06-06 14:23] VITALS: BP 110/75; BMI 26.6
== END ==
PROVIDERS: PCP Family Medicine; Visit Provider Psychiatry & Neurology Psychiatry
DX: F20.89 Other schizophrenia (principal); F17.210 Nicotine dependence, cigarettes, uncomplicated; F25.0 Schizoaffective disorder, bipolar type
CPT/HCPCS: 96372; 99214

== ENCOUNTER 2022-02-03 10:59 | Inpatient (IN) | payer MEDICARE, MEDICAID, SELFPAY ==
[2020-06-06 14:23] VITALS: BP 110/75; BMI 26.6
[2022-02-03] VITALS (10 sets, daily range): BP systolic 90–128; BP diastolic 51–73; PULSE 69–111; RESP 16–18; TEMP 36.6–36.8; O2SAT 91–96; BMI 26.2
--- NOTE | 2022-02-03 11:06 | ECG_ITS ---
[facility] Test Date: 2022-02-03 Pat Name: Bradley Edwards Department: Room: Gender: Male Director Child: : 1955 Requested By: Onofre Bailey Order Number: [id number] Reading MD: Martha Garcia M.D. Measurements Intervals [place] Rate: 76 P: [place]: QRS: 85 QRSD: 92 T: 44 QT: 395 QTc: 446 Interpretive Statements ATRIAL FLUTTER/TACHYCARDIA ABNORMAL RHYTHM ECG Compared to ECG 02/03/2022 10:39:24 T-wave abnormality no longer present Possible ischemia no longer present Electronically Signed On 02-03-2022 22:16:01 CDT by Martha Garcia M.D. [id number]
--- NOTE | 2022-02-03 11:06 | CT_ITS ---
WS: [id number] CT HEAD NONCONTRAST HISTORY: ams TECHNIQUE: Contiguous axial imaging performed through the brain in 2.5 mm imaging. Bone and soft tiss ue windows. Sagittal and coronal reformats reviewed. All CT scans at [facility] use at least one of these dose optimization techniques: automated exposure control; mA and/or kV adjustment per pa tient size (includes targeted exams where dose is matched to clinical indication); or iterative recon struction. DLP: 944.39 mGy.cm COMPARISON: 11/30/2017 No acute intracranial hemorrhage, midline shift or mass effect. Mild atrophy and small vessel ischemic disease. Small lacunar infarcts bilaterally within the anterio r limbs of the internal capsules. Ventricles: Normal size with no hydrocephalus. No inferior displacement of the cerebellar tonsils. Paranasal sinuses: As visualized are clear. Mastoid air cells: Well pneumatized. Calvarium and scalp: Skull is intact with no soft tissue edema or swelling. CT/CT head wo con* [id number] IMPRESSION: 1. No acute intracranial hemorrhage or edema. 2. Bilateral lacunar infarcts in the internal capsules. Mild small vessel isch emic disease.
--- NOTE | 2022-02-03 11:17 | W.ED.GENADLT ---
HPI - General Adult General: Chief complaint: Weakness Stated complaint: AMS Time Seen by Provider: 02/03/22 11:06 History of Present Illness: 66-year-old male with a history of DNR, lung cancer, antitrypsin deficiency, COPD presenting to the emergency room with altered mental status and fall. On arrival, patient appears to be confused but he tells me that yesterday night he felt weak and fell on the ground since that he has been unable to get up. Earlier today, patient's family checked on him and noticed that he was on the ground and EMS was called. Patient tells me that he could not get to the bathroom and covered himself in urine. Patient has no other complaints today including chest pain, shortness of breath, focal pain anywhere, abdominal complaints, complaints. Patient tells me that he does not use oxygen at home. Patient is noted to be satting at 88% on room air by EMS that improved to 96% on 4 L of oxygen. Onset:1 day ago Duration: 1 day Location:home Severity:severe Review of Systems General: Reports: ROS unobtainable due to mental status Neuro: Reports: other (confusion) ON LICENSE OF [facility] ED PFSH: Medical History Kipgl-5-hvtkpvghqee deficiency Anticoagulation adequate Pradaxa Chronic back pain Cigarette smoker COPD (chronic obstructive pulmonary disease) Hx of atrial flutter Hyperlipidemia Insomnia Other schizophrenia Surgical History S/P thyroidectomy Family History Other Cancer Social History Smoking and tobacco status: current every day smoker cigarettes Packs smoked per day: 2 Years cigarettes smoked: 48 Quit status (tobacco): not considering quitting Second hand smoke exposure: No Smoking risk assessment/counseling performed?: Yes Alcohol intake: former Adopted: No Caregiver/support person: Yes Lives independently: Yes Household members: none Housing: Apartment Marital status: Single Number of children: 0 Number of grandchildren: 0 Highest education level completed: Some College, No Degree service: Yes Current occupational status: disabled Pets and animals: No History of recent travel: No Leisure activites: music and other Leisure activities details: watch news Current gender identity: Male Nenita/Faith: [employer] Special nenita needs: No Agree to transfusion: Yes Financial difficulty paying for basics: Not Very Hard Physical Exam Const: COMMON NORMALS: alert HENMT: COMMON NORMALS: atraumatic HEAD & SCALP: atraumatic MOUTH: moist mucous membranes not abnormal Eye: COMMON NORMALS: EOMs intact bilaterally and conjunctivae normal CONJUNCTIVA: Yes conjunctivae normal Neck/C-Spine: COMMON NORMALS: full ROM and supple Resp: COMMON NORMALS: normal respiratory effort and clear to auscultation bilaterally AUSCULTATION: clear to auscultation bilaterally Cardio: COMMON NORMALS: regular rate RATE: regular rate GI: COMMON NORMALS: Soft to palpation and non-tender PALPATION: Yes Soft to palpation Extremity: COMMON NORMALS: full ROM Neuro: SENSORIUM/ORIENTATION: Yes alert OTHER: AAOx2(self and location), confused, slurring words moving all extremities, following commands, cranial nerves II through XII grossly intact, Psych: SPEECH: Yes slow OTHER: + Unable to fully assess due to altered mental status Course Vital Signs: Vital signs: Vital Signs Temperature 97.7 F 02/08/22 08:00 Pulse Rate 109 H 02/08/22 08:10 Respiratory Rate 20 H 02/08/22 08:05 Blood Pressure 143/68 02/08/22 08:00 Pulse Oximetry 92 02/08/22 08:05 [facility] - General Adult Medical Decision Making 66-year-old gentleman with a history of DNR, lung cancer presenting to the emergency room for evaluation of altered mental status and found down. On arrival, patient is AAO x2, appears to be confused and slurring his words. Lungs appear to be clear. Patient is noted to be satting 88% that improved to 94% on 4 L of oxygen. Patient is noted to have soft blood pressure 90/40. Lung sounds appear to be clear bilaterally. Is unclear what is the cause of the fall and altered mental status. Differential diagnosis broad. CT head negative for any acute finding. XR chest showed L upper lobe consolidation concerning for aspiration pneumonia. Patient is noted have white count 20.7. Creatinine 1.4 up from baseline 0.8. Troponin and proBNP appears to be mildly elevated. EKG is nonischemic. Patient has an elevated D-dimer to 0.96. Given the fact that patient is allergic to shellfish as well as Benadryl and fluticasone, decision was made in conjunction with Dr. Kingsley to order an inpatient VQ scan for evaluation of PE. She received 1 500 cc of fluid with improvement in blood pressure. Patient continues to be satting at 92 to 93% on 2 L of nasal cannula. Patient received vancomycin and cefepime given elevated leukocytosis and altered mental status. Blood culture pending. Disposition: admission Lab Data : 02/08/22 04:29 02/08/22 04:[address] 02/03/22 11:06 IMPRESSION: 1. No acute intracranial hemorrhage or edema. 2. Bilateral lacunar infarcts in the internal capsules. Mild small vessel ischemic disease. Chest X-Ray 02/03/22 12:55 IMPRESSION: There is consolidation of the left upper lung field where a mass was seen on the prior CT scan. Superimposed pneumonia cannot be excluded. Chest/Abdomen/Pelvis CT 02/03/22 15:52 IMPRESSION: There is been interval enlargement of the left upper lobe mass with occlusion of the left upper lobe bronchus and atelectasis of the left upper lobe. The mass invades the distal aspect of the left mainstem bronchus with moderate narrowing. IMPRESSION: There is a small right inguinal hernia containing a short segment of a small bowel loop with no evidence for strangulation or obstruction. Laboratory Results WBC 20.7 10^3/uL (4.0-10.0) H 02/03/22 11:20 RBC 3.85 10^6/uL (4.1-5.3) L 02/03/22 11:20 Hgb 11.1 g/dL (11.7-16.6) L 02/03/22 11:20 Hct 32.9 % (42.0-52.0) L 02/03/22 11:20 MCV 85.5 fl (80-94) 02/03/22 11:20 MCH 28.8 pg (28.0-34.0) 02/03/22 11:20 MCHC 33.7 g/dL (30.0-36.0) 02/03/22 11:20 RDW 14.2 % (12.1-15.1) 02/03/22 11:20 Plt Count 483 10^3/cmm (130-400) H 02/03/22 11:20 MPV 8.5 fL (7.4-10.4) 02/03/22 11:20 Neut % (Auto) 88.2 % 02/03/22 11:20 Lymph % (Auto) 4.5 % 02/03/22 11:20 [place] % (Auto) 6.4 % 02/03/22 11:20 Eos % (Auto) 0.1 % 02/03/22 11:20 Baso % (Auto) 0.2 % 02/03/22 11:20 Neut # (Auto) 18.20 10^3/uL (1.8-7.7) H 02/03/22 11:20 Lymph # (Auto) 0.9 10^3/uL (0.8-4.8) 02/03/22 11:20 [place] # (Auto) 1.3 10^3/uL (0.2-0.9) H 02/03/22 11:20 Eos # (Auto) 0.0 10^3/uL (0.0-0.8) 02/03/22 11:20 Baso # (Auto) 0.0 10^3/uL (0.0-0.1) 02/03/22 11:20 Nucleated RBC % (auto) 0 % 02/03/22 11:20 Nucleated RBCs # 0.0 /100WBC 02/03/22 11:20 D-Dimer 0.96 ug/mIFEU (0-0.59) H 02/03/22 11:20 Specimen Type Arterial 02/03/22 11:45 Sample Site Brachial, right 02/03/22 11:45 ABG pH 7.43 (7.35-7.45) 02/03/22 11:45 ABG pCO2 39.7 mmHg (35-45) 02/03/22 11:45 ABG pO2 69.9 mmHg (80.0-100.0) L 02/03/22 11:45 ABG HCO3 26.2 mmol/L (22-26) H 02/03/22 11:45 ABG O2 Saturation 94.4 02/03/22 11:45 ABG Base Excess 1.7 mmol/L (-2.0-2.0) 02/03/22 11:45 [place] Test N/a 02/03/22 11:45 A-a O2 Gradient 3.9 mmHg (5-10) L 02/03/22 11:45 Hematocrit 28.5 % (42-52) L 02/03/22 11:45 Hgb O2 Saturation 92.9 % (95-100) L 02/03/22 11:45 Carboxyhemoglobin 1.1 %THgb (0.4-20.1) 02/03/22 11:45 Methemoglobin 0.5 % (0.4-1.5) 02/03/22 11:45 Total Hemoglobin 9.3 g/dL (14-18) L 02/03/22 11:45 Sodium 131.0 mmol/L (131-143) 02/03/22 11:45 Potassium 3.7 mmol/L (3.5-5.0) 02/03/22 11:45 Glucose 109.0 mg/dL (70-115) 02/03/22 11:45 Ionized Calcium 1.4 mmol/L (1.1-1.4) 02/03/22 11:45 O2 Delivery Device Nc 02/03/22 11:45 O2 Liters/Min 2.0 % 02/03/22 11:45 Hotel Baggage Handler ID Hinja 02/03/22 11:45 Sodium 129 mmol/L (136-145) L 02/03/22 11:20 Potassium 4.0 mmol/L (3.5-5.1) 02/03/22 11:20 Chloride 92 mmol/L (98-107) L 02/03/22 11:20 Carbon Dioxide 24 mmol/L (22-29) 02/03/22 11:20 Anion Gap 17.0 (5-19) 02/03/22 11:20 BUN 11 mg/dL (8-23) 02/03/22 11:20 Creatinine 1.4 mg/dL (0.7-1.2) H 02/03/22 11:20 GFR Calculation 50.4 mL/min (90-130) L 02/03/22 11:20 Glucose 112 mg/dL (65-115) 02/03/22 11:20 POC Glucose 116 mg/dL (70-110) H 02/03/22 11:31 Calculated Osmolality 268 mOsm/kg (285-295) L 02/03/22 11:20 Lactate 1.5 mmol/L (0.5-2.2) 02/03/22 11:34 Calcium 10.3 mg/dL (8.5-10.5) 02/03/22 11:20 Total Bilirubin 0.5 mg/dL (0.15-1.2) 02/03/22 11:20 AST 22 U/L (0-40) 02/03/22 11:20 ALT 21 U/L (0-41) 02/03/22 11:20 Alkaline Phosphatase 110 IU/L (40-130) 02/03/22 11:20 Ammonia 25 umol/L (16-60) 02/03/22 11:20 Troponin T Baseline 29 ng/L (0-15) H 02/03/22 11:20 NT-Pro-B Natriuret Pep 2159 pg/mL (0-125) H 02/03/22 11:20 Total Protein 6.8 g/dL (6.6-8.7) 02/03/22 11:20 Albumin 3.3 g/dL (3.5-5.2) L 02/03/22 11:20 Globulin 3.5 g/dL (1.3-4.6) 02/03/22 11:20 Lipase 8 U/L (13-60) L 02/03/22 11:20 TSH 3.53 uIU/mL (0.27-4.20) 02/03/22 11:20 Free T4 1.71 ng/dL (0.82-1.77) 02/03/22 11:20 Urine Color Yellow (Yellow) 02/03/22 11:57 Urine Appearance Clear (CLEAR) 02/03/22 11:57 Urine pH 6 (5-7) 02/03/22 11:57 Ur Specific [place] 1.010 (1.005-1.030) 02/03/22 11:57 Urine Protein Neg (Negative) 02/03/22 11:57 Urine Glucose (UA) Norm (Normal) 02/03/22 11:57 Urine Ketones Negative (Negative) 02/03/22 11:57 Urine Blood Neg (Negative) 02/03/22 11:57 Urine Nitrate Negative (Negative) 02/03/22 11:57 Urine Bilirubin Neg (Negative) 02/03/22 11:57 Urine Urobilinogen Norm mg/dL (Negative) 02/03/22 11:57 Ur Leukocyte Esterase Negative (Negative) 02/03/22 11:57 Salicylates < 0.3 mg/dL (3-10) L 02/03/22 11:20 Urine Opiates Screen Negative ng/mL (Negative) 02/03/22 11:57 Acetaminophen < 5.0 ug/mL (10-30) L 02/03/22 11:20 Ur Barbiturates Screen Negative ng/mL (Negative) 02/03/22 11:57 Ur Phencyclidine Scrn Negative ng/mL (Negative) 02/03/22 11:57 Ur Amphetamines Screen Negative ng/mL (Negative) 02/03/22 11:57 U Benzodiazepines Scrn Negative ng/mL (Negative) 02/03/22 11:57 Urine Cocaine Screen Negative ng/mL (Negative) 02/03/22 11:57 U Marijuana (THC) Screen Negative ng/mL (Negative) 02/03/22 11:57 Ethyl Alcohol < 10 mg/dL (0-10) 02/03/22 11:20 Imaging Data Other Imaging: Radiologist's impression: [address] [place] [address] CT Scan Report Signed Patient: Bradley Edwards Unit #: [id number] : 1955 Age/Sex: 66 / M ADM Date: 02/03/22 Loc: ER Room/Bed: Attending Dr: Ordering Provider/Ordering MD: Onofre Bailey MD Date of Service: 02/03/22 Procedure(s): CT head wo con* [id number] Accession Number(s): [id number] Report Number: [id number] WS: [id number] CT HEAD NONCONTRAST HISTORY: ams TECHNIQUE: Contiguous axial imaging performed through the brain in 2.5 mm imaging. Bone and soft tissue windows. Sagittal and coronal reformats reviewed.? All CT scans at [facility] use at least one of these dose optimization techniques: automated exposure control; mA and/or kV adjustment per patient size (includes targeted exams where dose is matched to clinical indication); or iterative reconstruction. DLP: 944.39 mGy.cm COMPARISON: 11/30/2017 No acute intracranial hemorrhage, midline shift or mass effect. Mild atrophy and small vessel ischemic disease. Small lacunar infarcts bilaterally within the anterior limbs of the internal capsules. Ventricles:? Normal size with no hydrocephalus. No inferior displacement of the cerebellar tonsils. Paranasal sinuses: As visualized are clear. Mastoid air cells: Well pneumatized. Calvarium and scalp: Skull is intact with no soft tissue edema or swelling. CT/CT head wo con* [id number] IMPRESSION: ? 1.? No acute intracranial hemorrhage or edema. 2.? Bilateral lacunar infarcts in the internal capsules. Mild small vessel ischemic disease. ? Dictated By: Tiarra Keating DO Signed By: Tiarra Keating DO Signed Date/Time: 02/03/22 1217 DD/ [address] [address] XRay Report Signed Patient: Bradley Edwards Unit #: [id number] : 1955 Age/Sex: 66 / M ADM Date: 02/03/22 Loc: ER Room/Bed: Attending Dr: Ordering Provider/Ordering MD: Onofre Bailey MD Date of Service: 02/03/22 Procedure(s): XR chest 1V portable [id number] Accession Number(s): [id number] Report Number: [id number] PROCEDURE INFORMATION: Exam: XR Chest Exam date and time: 02/03/2022 12:58 PM Age: 66 years old Clinical indication: Shortness of breath; Patient HX: HX of lung cancer; Additional info: Hypoxemia TECHNIQUE: Imaging protocol: Radiologic exam of the chest. Views: 1 view. COMPARISON: CT chest wo con [id number] 07/23/2020 12:07 PM FINDINGS: Lungs: There is consolidation of the left upper lung field. A mass was seen in the left upper lobe on the prior CT scan. Pleural spaces: Unremarkable. No pleural effusion. No pneumothorax. Heart/Mediastinum: Unremarkable. No cardiomegaly. Bones/joints: Unremarkable. XR/XR chest 1V portable [id number] IMPRESSION: There is consolidation of the left upper lung field where a mass was seen on the prior CT scan. Superimposed pneumonia cannot be excluded. ? Dictated By: Constanza Smyth MD Signed By: Constanza Smyth MD Signed Date/Time: 02/03/22 1334 DD/ 1258 Discharge Plan Discharge Patient Disposition: Admitted As Inpatient Admit Provider: Obinna Ragland Clinical Impression: AMS (altered mental status), Fall, Hypoxemia, Generalized weakness Condition: Stable Coding Level of Care Code ED Clinical Field Specialist for Chg Fwd Exam Comprehensive
[2022-02-03 11:34] LABS: Basophils % 0.2 %; Eosinophils % 0.1 %; Hematocrit 32.9 % (42.0-52.0); Hemoglobin 11.1 g/dL (11.7-16.6); Lymphocytes # 0.9 10^3/uL (0.8-4.8); Lymphocytes % 4.5 %; Mean Corpuscular HGB Conc 33.7 g/dL (30.0-36.0); Mean Corpuscular Hemoglobin 28.8 pg (28.0-34.0); Mean Corpuscular Volume 85.5 fl (80-94); Mean Platelet Volume 8.5 fL (7.4-10.4); Monocytes # 1.3 10^3/uL (0.2-0.9); Monocytes % 6.4 %; Neutrophils % 88.2 %; Nucleated Red Blood Cells % 0 %; Platelet Count 483 10^3/cmm (130-400); Red Blood Count 3.85 10^6/uL (4.1-5.3); Red Cell Distribution Width 14.2 % (12.1-15.1); White Blood Count 20.7 10^3/uL (4.0-10.0)
[2022-02-03 11:36] LABS: Glucose Point of Care 116 mg/dL (70-110)
[2022-02-03] MEDS: sodium chloride 0.9% 500 ML IV (11:45)
[2022-02-03 11:47] LABS: D Dimer 0.96 ug/mIFEU (0-0.59)
[2022-02-03 11:50] LABS: ABG PCO2 39.7 mmHg (35-45); ABG PH Result 7.43 (7.35-7.45); Alveolar-Arterial Oxygen Gradi 3.9 mmHg (5-10); Arterial Blood Gas Hematocrit 28.5 % (42-52); Base Excess ABG 1.7 mmol/L (-2.0-2.0); Blood Gas Sample Site Brachial, right; Blood Gas Sample Type Arterial; Carboxyhemoglobin 1.1 %THgb (0.4-20.1); HCO3 ABG 26.2 mmol/L (22-26); HGB O2 Sat 92.9 % (95-100); Ionized Calcium Level - ABG 1.4 mmol/L (1.1-1.4); Methemoglobin 0.5 % (0.4-1.5); Oxygen Device NC; Oxygen Saturation ABG 94.4; PO2 ABG 69.9 mmHg (80.0-100.0); Potassium Level - ABG 3.7 mmol/L (3.5-5.0); Total Hemoglobin 9.3 g/dL (14-18)
[2022-02-03 11:54] LABS: Ammonia 25 umol/L (16-60)
[2022-02-03 11:59] LABS: Troponin(5th) Baseline 29 ng/L (0-15)
[2022-02-03 12:06] LABS: Alanine Aminotransferase 21 U/L (0-41); Albumin Level 3.3 g/dL (3.5-5.2); Alkaline Phosphatase 110 IU/L (40-130); Aspartate Amino Transferase 22 U/L (0-40); Blood Urea Nitrogen 11 mg/dL (8-23); Calcium 10.3 mg/dL (8.5-10.5); Carbon Dioxide 24 mmol/L (22-29); Chloride 92 mmol/L (98-107); Free T4 Free Thyroxine 1.71 ng/dL (0.82-1.77); Globulin 3.5 g/dL (1.3-4.6); Glomerular Filtration Rate 50.4 mL/min (90-130); Glucose 112 mg/dL (65-115); Lipase 8 U/L (13-60); NT Pro B Type Natriuretic Pept 2159 pg/mL (0-125); Osmolality Calculated 268 mOsm/kg (285-295); Sodium 129 mmol/L (136-145); Thyroid Stimulating Hormone 3.53 uIU/mL (0.27-4.20); Total Bilirubin 0.5 mg/dL (0.15-1.2); Total Protein 6.8 g/dL (6.6-8.7)
[2022-02-03 12:08] LABS: Add Urine Microscopic? NO; Charge for UA Resulting for Rev
[2022-02-03 12:11] LABS: Salicylate < 0.3 mg/dL (3-10)
[2022-02-03 12:12] LABS: Acetaminophen < 5.0 ug/mL (10-30); Alcohol Level < 10 mg/dL (0-10)
[2022-02-03 12:16] LABS: Bilirubin Urine Neg (Negative); Blood Urine Neg (Negative); Glucose Urine UA Norm (Normal); Ketones Urine Negative (Negative); Leukocyte Esterase Urine Negative (Negative); Nitrate Urine Negative (Negative); Protein Urine Neg (Negative); Urine Appearance Clear (CLEAR); Urine Color Yellow (Yellow); Urobilinogen Urine Norm (Negative); pH Urine 6 (5-7)
[2022-02-03] MEDS: cefepime 1,000 MG in sodium chloride 0.9% (plus) 50 ML 100 MG IV (12:16)
[2022-02-03 12:35] LABS: Lactate (Lactic Acid level) 1.5 mmol/L (0.5-2.2)
--- NOTE | 2022-02-03 12:41 | PC.PHAR ---
pt states he takes care of his own medications-pt brought in medication bottles and states he takes them the way they are filled-
[2022-02-03] MEDS: vancomycin 1,000 MG in sodium chloride 0.9% 250 ML 250 MG IV (12:47)
--- NOTE | 2022-02-03 12:55 | XRR_ITS ---
PROCEDURE INFORMATION: Exam: XR Chest Exam date and time: 02/03/2022 12:58 PM Age: 66 years old Clinical indication: Shortness of breath; Patient HX: HX of lung cancer; Additional info: Hypoxemia TECHNIQUE: Imaging protocol: Radiologic exam of the chest. Views: 1 view. COMPARISON: CT chest [facility] [id number] 07/23/2020 12:07 PM FINDINGS: Lungs: There is consolidation of the left upper lung field. A mass was seen in the left upper lobe on the prior CT scan. Pleural spaces: Unremarkable. No pleural effusion. No pneumothorax. Heart/Mediastinum: Unremarkable. No cardiomegaly. Bones/joints: Unremarkable. XR/XR chest 1V portable [id number] IMPRESSION: There is consolidation of the left upper lung field where a mass was seen on the prior CT scan. Superimposed pneumonia cannot be excluded.
--- NOTE | 2022-02-03 13:06 | ECG_ITS ---
[facility] Test Date: 2022-02-03 Pat Name: Bradley Edwards Department: Room: Gender: Male Vessel Operator: : 1955 Requested By: Onofre Bailey Order Number: [id number] Usman MD: Martha Garcia M.D. Measurements Intervals [place] Rate: 77 P: [place]: QRS: 91 QRSD: 102 T: -66 QT: 441 QTc: 501 Interpretive Statements ATRIAL FLUTTER BORDERLINE RIGHT AXIS DEVIATION [QRS AXIS > 90] ST DEVIATION AND MODERATE T-WAVE ABNORMALITY, CONSIDER ANTEROLATERAL ISCHEMIA [-0.1+ mV T-WAVE IN V3-V6] ST DEVIATION AND MODERATE T-WAVE ABNORMALITY, CONSIDER INFERIOR ISCHEMIA [-0.1+ mV T-WAVE IN II/aVF] WARNING: DATA QUALITY MAY AFFECT INTERPRETATION Compared to ECG 11/30/2017 14:40:53 T-wave abnormality now present Possible ischemia now present ST (T wave) deviation no longer present Electronically Signed On 02-03-2022 22:24:09 CDT by Martha Garcia M.D. [id number]
--- NOTE | 2022-02-03 13:41 | PM.HP ---
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 Currently patient alert to person, to place, to time, he does follow commands, answers most questions appropriately. Patient's sister legal guardian, Ivonne, I have been told by patient this year from cancer. He tells me he lives alone, by himself, he has a live-in caregiver. He tells me that he was in the history of this morning or yesterday evening he is not sure, when he was too weak to get up, so he slid out of the chair, and ended up on the floor, denies any head trauma, denies any loss of consciousness he is not sure how long he was on the floor for. He does report weakness recently, does have a poor appetite, no fevers, does have a cough, does complain of shortness of breath. Denies any dysuria. Denies any hemoptysis, does report he takes all his medications. He tells me he has lung cancer, but he is not pursuing treatment, for the last year, he has not seen oncology in over a year. Currently he is blood pressures are soft, he is received fluid, now normotensive, on 2 L, following commands, receiving antibiotic therapy. He tells me he has a DNR, he does not want to have aggressive interventions, he does have back pain which is new he tells me he denies any blurry vision, denies any headaches Review of Systems Const: Denies: fever(s) or chills Eyes: Denies: change in vision ENMT: Denies: nasal congestion Card: Denies: chest pain Resp: Reports: dyspnea and productive cough GI: Denies: abdominal pain, nausea or vomiting : Denies: dysuria Neuro: Denies: headache(s), dizziness or vertigo Medications/Allergies Home Medications Medication Instructions Recorded Confirmed Last Taken Type albuterol sulfate 90 mcg/actuation 2 - 4 puff INHALATION Q6H PRN 01/02/03/22 08/28/20 06:15 History aerosol inhaler (Ventolin HFA) atorvastatin 20 mg tablet 20 mg PO BEDTIME 09/13/19 02/03/22 08/27/20 History azelastine 137 mcg (0.1 %) nasal 2 spray INTRANASAL BID 09/13/19 02/03/22 08/27/20 History spray aerosol dabigatran etexilate 150 mg 150 mg PO BID 09/13/19 02/03/22 08/25/20 09:00 History capsule (Pradaxa) diltiazem HCl 60 mg tablet 60 mg PO TID 09/13/19 02/03/22 08/28/20 06:15 History docusate sodium 100 mg capsule 100 mg PO DAILY 09/13/19 02/03/22 08/27/20 History (Colace) metoprolol tartrate 25 mg tablet 12.5 mg PO BID 09/13/19 02/03/22 08/28/20 06:15 History umeclidinium 62.5 mcg-vilanterol 1 inh INHALATION Q24H 09/13/19 02/03/22 08/27/20 History 25 mcg/actuation powdr for inhalation (Anoro Ellipta) potassium gluconate 600 mg (99 mg) 600 mg PO DAILY 05/07/20 02/03/22 08/27/20 History tablet cetirizine 10 mg tablet (Zyrtec) 10 mg PO BEDTIME tab 08/19/20 02/03/22 08/27/20 History Centrum Silver Mens +50 Gummie 1 tab PO DAILY 02/03/22 02/03/22 Unknown History acetaminophen 500 mg tablet 500 - 1,000 mg PO Q6H PRN 02/03/22 02/03/22 Unknown History clonazepam 1 mg tablet 1 mg PO BEDTIME 02/03/22 02/03/22 Unknown History fluphenazine HCl 5 mg tablet 5 mg PO BEDTIME 02/03/22 02/03/22 Unknown History multivitamin-ferrous 1 tab PO DAILY 02/03/22 02/03/22 Unknown History fumarate-folic acid 18 mg-400 mcg tablet (Certavite-Antioxidant) trazodone 100 mg tablet 150 mg PO BEDTIME 02/03/22 02/03/22 Unknown History trihexyphenidyl 2 mg tablet 2 mg PO BEDTIME 02/03/22 02/03/22 Unknown History Allergies Allergy/AdvReac Type Severity Reaction Status Date / Time Androgenic Anabolic Steroid Allergy Unknown ALGY-Anaphy Verified 02/03/22 12:25 laxis diphenhydramine Allergy couldnt Verified 02/03/22 12:25 [From Benadryl] breath through nose fexofenadine [From Pamela] Allergy Unknown Verified 02/03/22 12:25 fluticasone [From Flonase] Allergy ALGY-Difficulty Verified 02/03/22 12:25 Breathing ibuprofen [From Motrin] Allergy Unknown Verified 02/03/22 12:25 shellfish derived Allergy swelling Verified 02/03/22 12:25 PFSH Acute PFSH: Medical History [id number] deficiency Anticoagulation adequate Pradaxa Chronic back pain Cigarette smoker COPD (chronic obstructive pulmonary disease) Hx of atrial flutter Hyperlipidemia Insomnia Other schizophrenia Surgical History S/P thyroidectomy Family History Other Cancer Social History Smoking and tobacco status: current every day smoker cigarettes Packs smoked per day: 2 Years cigarettes smoked: 48 Quit status (tobacco): not considering quitting Second hand smoke exposure: No Smoking risk assessment/counseling performed?: Yes Alcohol intake: former Adopted: No Caregiver/support person: Yes Lives independently: Yes Household members: none Housing: Apartment Marital status: Single Number of children: 0 Number of grandchildren: 0 Highest education level completed: Some College, No Degree service: Yes Current occupational status: disabled Pets and animals: No History of recent travel: No Leisure activites: music and other Leisure activities details: watch news Current gender identity: Male [employer]enita[employer] Special nenita needs: No Agree to transfusion: Yes Financial difficulty paying for basics: Not Very Hard Vitals/I&O/Wt Last Vital Signs Temp 97.9 F 02/03/22 11:08 Pulse 83 02/03/22 12:17 Resp 18 02/03/22 12:17 BP 102/60 02/03/22 12:17 Pulse Ox 93 02/03/22 12:17 Weight last 48 hrs Weight 80.739 kg Physical Exam Const: COMMON NORMALS: no acute distress and patient oriented x3 HENMT: COMMON NORMALS: normocephalic HEAD & SCALP: normocephalic Eye: COMMON NORMALS: Equal, round and reactive pupils present and EOMs intact bilaterally Resp: COMMON NORMALS: normal respiratory effort, No retractions and No use of accessory muscles AUSCULTATION: diminished lung sounds diffuse Cardio: COMMON NORMALS: regular rate, regular rhythm, S1 normal heart sound present and S2 normal heart sound present RATE: regular rate RHYTHM: regular rhythm HEART SOUNDS: S1 normal heart sound present and S2 normal heart sound present GI: COMMON NORMALS: Normal to inspection, nondistended, normoactive bowel sounds present, Soft to palpation and non-tender Extremity: COMMON NORMALS: no pedal edema Neuro: COMMON NORMALS: patient oriented x3, CN's II-XII intact bilaterally, moves all extremities and no focal motor deficits Psych: COMMON NORMALS: mental status grossly normal Data : 02/03/22 11:20 02/03/22 11:20 Micro: Microbiology 02/03/22 12:16 Blood Culture - Preliminary Blood SPECIMEN COLLECTED 02/03/22 11:34 Blood Culture - Preliminary Blood SPECIMEN COLLECTED A&P Assessment and plan (1) AMS (altered mental status): Status: Acute (2) Fall: Status: Acute (3) Hypoxemia: Status: Acute (4) Hyperlipidemia: Status: Acute (5) COPD (chronic obstructive pulmonary disease): Status: Acute Qualifiers: COPD type: emphysema Emphysema type: centrilobular Qualified Code(s): J43.2 - Centrilobular emphysema (6) Hx of atrial flutter: Status: Acute (7) Lung cancer: Status: Acute Plan Altered mental status, generalized weakness, shortness of breath -Currently alert and oriented x3 -Does have lung cancer, with metastasis to lymph nodes, left upper lobe, currently no evaluations for the last year, does not want to have any treatment, DNR/DNI -Blood pressure soft admission, fluid responsive, now normotensive, on 2 L plan -CT's chest abdomen pelvis -We will consider VQ scan, however he is on Pradaxa, switch to therapeutic Lovenox venous ultrasound lower extremity -Pro-Sammy CRP blood cultures sputum cultures, COVID -Vancomycin, Zosyn, MRSA PCR, midodrine -Monitor respiratory status -DuoNeb -Monitor respiratory status closely, monitor mentation -CT of the brain no acute findings, but did show bilateral lacunar infarcts of the internal capsules -In the past has been discussion about doing MRI to rule out intracranial metastatic lesions, however patient has declined, will continue to monitor mentation, seizure precautions, certainly this could be playing a role to his changes in mentation --dehydration, MATT, IV fluids -borderline low blood pressures, midodrine -Hyponatremia, dehydration, IV fluids -Elevated troponins, serial EKGs, serial troponins, telemetry monitoring -Atrial flutter, hold off on metoprolol, monitor heart rates, telemetry monitoring Attestations Medical Necessity Statement*: Patient requires hospitalization, for weakness, shortness of breath, altered mental status, likely secondary to pneumonia Coding Level of Care Code Acute Service 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
[2022-02-03 14:29] LABS: Amphetamines Screen Urine Negative (Negative); Barbiturates Screen Urine Negative (Negative); Benzodiazepines Screen Urine Negative (Negative); Cocaine Screen Urine Negative (Negative); Opiate Screen Urine Negative (Negative); PCP Screen Urine Negative (Negative); THC Screen Urine Negative (Negative)
[2022-02-03 14:46] LABS: C Reactive Protein 23.9 mg/L (0.0-4.9); Creatine Phosphokinase 91 U/L (39-308); Magnesium 1.8 mg/dL (1.7-2.3)
[2022-02-03 14:51] LABS: Alcohol Level < 10 mg/dL (0-10)
[2022-02-03 15:06] LABS: Troponin 5 2HR 24.85 ng/L (0-15)
[2022-02-03 15:09] LABS: Troponin 5 2HR Delta -4.15 ABS# (0-10)
--- NOTE | 2022-02-03 15:52 | CTR_ITS ---
PROCEDURE INFORMATION: Exam: CT Chest Without Contrast; Diagnostic Exam date and time: 02/03/2022 5:12 PM Age: 66 years old Clinical indication: Other: Dizziness; Patient HX: HX of lung CA; Additional info: AMS, lung cancer TECHNIQUE: Imaging protocol: Diagnostic computed tomography of the chest without contrast. Radiation optimization: All CT scans at this facility use at least one of these dose optimization techniques: automated exposure control; mA and/or kV adjustment per patient size (includes targeted exams where dose is matched to clinical indication); or iterative reconstruction. COMPARISON: CT chest [facility] [id number] 07/23/2020 12:07 PM RADIATION DOSE METRICS: Total DLP (mGy-cm): 1701.68 FINDINGS: Lungs: There are centrilobular emphysematous changes in the bilateral lungs. Left upper lobe mass has enlarged when compared to the prior study and currently measures 12.9 x 10.7 x 9.3 cm in the craniocaudad/AP/transverse dimensions. The left upper lobe with atelectatic as the mass occludes the left upper lobe bronchus. The mass extends into the distal aspect of the left mainstem bronchus with moderate narrowing. Pleural spaces: Small left pleural effusion. Heart: Multivessel atherosclerotic disease which involves the coronary arteries. Lymph nodes: Unremarkable. No enlarged lymph nodes. Vasculature: Unremarkable. No aortic aneurysm. Bones/joints: Unremarkable. No acute fracture. Soft tissues: Unremarkable. PROCEDURE INFORMATION: Exam: CT Abdomen And Pelvis Without Contrast Exam date and time: 02/03/2022 5:12 PM Age: 66 years old Clinical indication: Other: Dizziness; Patient HX: HX of lung CA; Additional info: AMS, lung cancer TECHNIQUE: Imaging protocol: Computed tomography of the abdomen and pelvis without contrast. Radiation optimization: All CT scans at this facility use at least one of these dose optimization techniques: automated exposure control; mA and/or kV adjustment per patient size (includes targeted exams where dose is matched to clinical indication); or iterative reconstruction. COMPARISON: CT chest [facility] [id number] 07/23/2020 12:07 PM RADIATION DOSE METRICS: Total DLP (mGy-cm): 1701.68 FINDINGS: Lungs: Please see the CT scan of the thorax for description of the lung bases. Liver: Normal. No mass. Gallbladder and bile ducts: Normal. No calcified stones. No ductal dilation. Pancreas: Normal. No ductal dilation. Spleen: Normal. No splenomegaly. Adrenal glands: Normal. No mass. Kidneys and ureters: Normal. No hydronephrosis. Stomach and bowel: Unremarkable. No obstruction. No mucosal thickening. Appendix: A normal appendix is identified. Intraperitoneal space: Unremarkable. No free air. No significant fluid collection. Vasculature: Infrarenal abdominal aorta is ectatic measuring 2.6 cm in the transverse dimension.Multivessel atherosclerotic disease which involves the coronary arteries. Lymph nodes: Unremarkable. No enlarged lymph nodes. Urinary bladder: Unremarkable as visualized. Reproductive: Unremarkable as visualized. Bones/joints: Unremarkable. No acute fracture. Soft tissues: Small right inguinal hernia contains a short segment of a small bowel loop with no evidence for strangulation or obstruction. There is a small fat containing left inguinal hernia. CT/[place] [id number] IMPRESSION: There is been interval enlargement of the left upper lobe mass with occlusion of the left upper lobe bronchus and atelectasis of the left upper lobe. The mass invades the distal aspect of the left mainstem bronchus with moderate narrowing. IMPRESSION: There is a small right inguinal hernia containing a short segment of a small bowel loop with no evidence for strangulation or obstruction.
--- NOTE | 2022-02-03 15:52 | USCV_ITS ---
Bradley Edwards Age: 66 Gender: M : 1955 Exam Date: 02/03/2022 16:16 Ordering Phys: Obinna Ragland MD Technologist: ARNOLDO Exam Location: [facility] [place] Indication: Lung cancer. No hx DVT per patient. No edema. No erythema. No leg pain. HISTORY: Lung cancer. No hx DVT per patient. No edema. No erythema. No leg pain. PROCEDURES: Venous duplex imaging was performed in bilateral lower extremities. The venous duplex Doppler examination of both lower extremities was performed in the standard fashion. FINDINGS: Normal 2-D Doppler and augmentation and compressibility throughout the lower extremity venous structures. Additional imaging through the proximal calf veins also reveals no thrombus. Limited evaluation of the greater saphenous vein is patent with no thrombus.. CONCLUSIONS No DVT bilateral lower extremities. Dr. Tiarra Keating DO (Electronically Signed) Final Date: 04 February 2022 07:41 S
[2022-02-03] MEDS: sodium chloride 0.9% 1,000 ML 125 ML IV (17:41)
[2022-02-03] MEDS: midodrine 5 mg TABLET 10 MG PO ×2 (17:41→22:16)
[2022-02-03] MEDS: pantoprazole 40 mg SDV IVP (17:42)
[2022-02-03] MEDS: enoxaparin 80 mg/0.8 mL Syringe SUBCUT (17:42)
[2022-02-03] MEDS: piperacillin-tazobactam 3.375 GM in sodium chloride 0.9% (plus) 50 ML IV (17:43)
[2022-02-03 19:22] LABS: Adenovirus Not Detected (NOT DETECT); Chlamydia Pneumoniae Not Detected (NOT DETECT); Coronavirus 229E,HKU1,NL63,OC4 Not Detected (NOT DETECT); Human Metapneumovirus Not Detected (NOT DETECT); Human Rhinovirus/Enterovirus Not Detected (NOT DETECT); Influenza A Not Detected (NOT DETECT); Influenza A H1 Not Detected (NOT DETECT); Influenza A H1-2009 Not Detected (NOT DETECT); Influenza A H3 Not Detected (NOT DETECT); Influenza B Not Detected (NOT DETECT); Mycoplasma Pneumoniae Not Detected (NOT DETECT); Parainfluenza Virus Type 1 Not Detected (NOT DETECT); Parainfluenza Virus Type 2 Not Detected (NOT DETECT); Parainfluenza Virus Type 3 Not Detected (NOT DETECT); Parainfluenza Virus Type 4 Not Detected (NOT DETECT); Respiratory Syncytial Virus A Not Detected (NOT DETECT); Respiratory Syncytial Virus B Not Detected (NOT DETECT); SARS-COV-2 Not Detected (NOT DETECT)
[2022-02-03] MEDS: CLONazepam 1 mg Tablet PO (22:16)
[2022-02-03] MEDS: atorvastatin 40 mg Tablet 20 MG PO (22:16)
[2022-02-03] MEDS: trazodone 150 mg Tablet PO (22:17)
[2022-02-04] VITALS (11 sets, daily range): BP systolic 98–138; BP diastolic 58–84; PULSE 88–150; RESP 16–18; TEMP 36.4–36.8; O2SAT 93–99
[2022-02-04] MEDS: piperacillin-tazobactam 3.375 GM in sodium chloride 0.9% (plus) 50 ML IV ×3 (00:04→20:55)
[2022-02-04] MEDS: enoxaparin 80 mg/0.8 mL Syringe SUBCUT ×2 (05:05→15:34)
[2022-02-04 08:24] LABS: Basophils # 0.1 10^3/uL (0.0-0.1); Basophils % 0.3 %; Eosinophils # 0.1 10^3/uL (0.0-0.8); Eosinophils % 0.6 %; Hematocrit 32.1 % (42.0-52.0); Hemoglobin 10.7 g/dL (11.7-16.6); Lymphocytes # 1.1 10^3/uL (0.8-4.8); Lymphocytes % 5.5 %; Mean Corpuscular HGB Conc 33.3 g/dL (30.0-36.0); Mean Platelet Volume 8.3 fL (7.4-10.4); Monocytes # 1.7 10^3/uL (0.2-0.9); Monocytes % 8.8 %; Neutrophils # 16.29 10^3/uL (1.8-7.7); Neutrophils % 84.3 %; Nucleated Red Blood Cells % 0 %; Platelet Count 430 10^3/cmm (130-400); Red Blood Count 3.69 10^6/uL (4.1-5.3); Red Cell Distribution Width 14.4 % (12.1-15.1); White Blood Count 19.3 10^3/uL (4.0-10.0)
[2022-02-04 08:42] LABS: Lactic Sepsis W/Reflex 0.7 mmol/L (0.5-2.2)
[2022-02-04 08:50] LABS: Alanine Aminotransferase 18 U/L (0-41); Albumin Level 2.9 g/dL (3.5-5.2); Alkaline Phosphatase 108 IU/L (40-130); Anion Gap 11.6 (5-19); Aspartate Amino Transferase 19 U/L (0-40); Blood Urea Nitrogen 9 mg/dL (8-23); Calcium 9.9 mg/dL (8.5-10.5); Carbon Dioxide 27 mmol/L (22-29); Chloride 98 mmol/L (98-107); Globulin 3.3 g/dL (1.3-4.6); Glomerular Filtration Rate 60.2 mL/min (90-130); Glucose 99 mg/dL (65-115); Osmolality Calculated 275 mOsm/kg (285-295); Potassium 3.6 mmol/L (3.5-5.1); Sodium 133 mmol/L (136-145); Total Bilirubin 0.3 mg/dL (0.15-1.2); Total Protein 6.2 g/dL (6.6-8.7)
[2022-02-04 08:54] LABS: Magnesium 1.8 mg/dL (1.7-2.3); Phosphorus 3.1 mg/dL (2.5-4.5)
[2022-02-04] MEDS: midodrine 5 mg TABLET 10 MG PO ×2 (09:20→14:35)
[2022-02-04] MEDS: sodium chloride 0.9% 1,000 ML 125 ML IV (09:23)
--- NOTE | 2022-02-04 10:02 | PC.CHAP ---
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 visit [] Patient/Family/Request visit [] Outpatient visit [] Follow-up visit [] Physician referral [] Code/Alert [x] Routine visit [] Staff referral [] Actively dying [] Patient sleeping [] Family support [] [] Out of room [] Palliative care [] [x] Receiving care in room [] Pre-surgical visit [] Trauma [] Long length of stay [] ICU visit [] Other: Relational/Emotional Strength [] Patient feels connected with others/family/visitors/staff [] Distress [] Loneliness/isolation [] Abandonment Spirituality of Patient [] Person of Nenita [] Attends Yazidi of their Nenita [] Believes in Prayer [] Reads Bible or Latter-Day materials [] There are Spiritual issues to be addressed [facility] Interventions [] Prayer [] Active listening [] Non-anxious presence [] Spiritual/emotional support [] Crisis/trauma care [] Spiritual counseling [] Bereavement support [] Provided bereavement packet [] Provided Bible/devotional materials [] Provided toy/stuffed animal, coloring book to patient or family member [] Provided Communion [] Anointing/[place] [] Salvation [] Completed spiritual assessment [] Other: Impact on Illness or Injury [] Angry [] Fearful [] Anxious [] Often cries [] Exhaustion [] Unable to work [] Unable to attend pentecostal [] Unable to walk/stand [] Unable to read [] Unable to drive [] Unable to eat/drink [] Unable to sleep [] Unable to be with family [] Patient intubated [] Other: Summary has a good attitude was confused about his health Time spent with patient 5 mins
[2022-02-04] MEDS: polyethylene glycol 3350 Pkt 17 gm PO (11:14)
[2022-02-04] MEDS: metoprolol tartrate 1 mg/1 mL SDV 5 mL 5 MG IVP ×2 (11:41→14:35)
[2022-02-04] MEDS: amiodarone 200 mg Tablet 400 MG PO ×2 (11:41→17:41)
[2022-02-04] MEDS: pantoprazole 40 mg SDV IVP (15:34)
[2022-02-04] MEDS: digoxin 250 mcg/ml INJ 2 mL IVP (15:34)
--- NOTE | 2022-02-04 15:44 | PM.PN ---
Subjective Subjective: Patient was seen this morning -I discussed patient's CT scan findings, evidence of enlargement of his lung cancer, with occlusion of left upper lobe bronchus, with invasion into distal left mainstem bronchus -I discussed patient's likely postobstructive pneumonia -I discussed his goals of care, -He tells me he does not have anybody for him at home -He tells me that he does not want to have any interventions, he would just wants to go home -I discussed options that are available to him, he tells me he just wants to go home, is willing to talk to hospice Vitals/I&O/Wt Last Vital Signs Temp 97.8 F 02/04/22 12:00 Pulse 150 H 02/04/22 14:38 Resp 16 02/04/22 12:00 BP 123/84 02/04/22 12:00 Pulse Ox 94 02/04/22 12:00 02/04/22 02/04/22 02/04/22 06:59 14:59 22:59 Intake Total 435.417 / 2125.417 1944.583 / 1944.583 766.667 / 2711.250 Output Total 240 / 240 Balance 435.417 / 1418.535 7916.583 / 1704.583 766.667 / 2471.250 Weight last 48 hrs Weight 80.739 kg Physical Exam Const: COMMON NORMALS: no acute distress and patient oriented x3 Resp: COMMON NORMALS: normal respiratory effort, No retractions and No use of accessory muscles AUSCULTATION: diminished lung sounds diffuse Cardio: COMMON NORMALS: regular rate, regular rhythm, S1 normal heart sound present and S2 normal heart sound present RATE: regular rate RHYTHM: regular rhythm HEART SOUNDS: S1 normal heart sound present and S2 normal heart sound present GI: COMMON NORMALS: Normal to inspection, nondistended, normoactive bowel sounds present, Soft to palpation and non-tender PALPATION: Yes Soft to palpation Extremity: COMMON NORMALS: no pedal edema Neuro: COMMON NORMALS: patient oriented x3 Psych: COMMON NORMALS: mental status grossly normal Data : 02/04/22 08:12 02/04/22 08:12 Micro: Microbiology 02/03/22 16:30 MRSA Culture - Final Nose 02/03/22 12:16 Blood Culture - Preliminary Blood NEGATIVE TO DATE 02/03/22 11:34 Blood Culture - Preliminary Blood NEGATIVE TO DATE A&P Assessment and plan (1) AMS (altered mental status): Status: Acute (2) Fall: Status: Acute (3) Hypoxemia: Status: Acute (4) Hyperlipidemia: Status: Acute (5) COPD (chronic obstructive pulmonary disease): Status: Acute Qualifiers: COPD type: emphysema Emphysema type: centrilobular Qualified Code(s): J43.2 - Centrilobular emphysema (6) Hx of atrial flutter: Status: Acute (7) Lung cancer: Status: Acute (8) Postobstructive pneumonia: Status: Acute Plan Altered mental status, generalized weakness, shortness of breath CT of the chest shows There is been interval enlargement of the left upper lobe mass with occlusion of the left upper lobe bronchus and atelectasis of the left upper lobe. The mass invades the distal aspect of the left mainstem bronchus with moderate narrowing. -Likely secondary to postobstructive pneumonia -Currently alert and oriented x3 -Does have lung cancer, with metastasis to lymph nodes, left upper lobe, currently no evaluations for the last year, does not want to have any treatment, DNR/DNI -Now normotensive plan -Monitor respiratory status closely -Venous ultrasound negative for DVT, currently on therapeutic Lovenox, can continue Pradaxa -Follow blood cultures, -Vancomycin, Zosyn, MRSA PCR -Monitor respiratory status -DuoNeb -Monitor respiratory status closely, monitor mentation -CT of the brain no acute findings, but did show bilateral lacunar infarcts of the internal capsules -In the past has been discussion about doing MRI to rule out intracranial metastatic lesions, however patient has declined, will continue to monitor mentation, seizure precautions, certainly this could be playing a role to his changes in mentation --dehydration, MATT, IV fluids -Blood pressures have improved hold off on midodrine -Serum sodium has improved, discontinue IV fluids -Elevated troponins, serial EKGs, serial troponins, telemetry monitoring -Atrial flutter, h metoprolol as needed, start amiodarone, -For lung cancer, will have hospice see patient, PT OT Attestations Medical Necessity Statement*: Patient requires hospitalization for postobstructive pneumonia Coding Level of Care Code Acute 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
--- NOTE | 2022-02-04 17:51 | PC.PT ---
Patient refused attempted a.m. evaluation stating he wanted to sleep, and stated agreeable to PT evaluation, but upon entering room was told to leave and that he was not going to do anything for me. Patient earlier refused attempted occupational therapy evaluation, and was very unpleasant to her, no further attempts to be made without patient agreeable with physician, to physical therapy evaluation. Patient was noted to arise to standing from toilet independently, and then independently ambulate with walker from toilet to bed, patient nurse stating he does not need the walker, and he may not but due to recent fall may as well use 1.
--- NOTE | 2022-02-04 19:25 | PC.NURSE ---
Bradley Edwards (father) [phone] Lisa Silvermann (Friend) [phone] Mima Hennessy (Home health worker) [phone] Edwarzachary Keane ([id number]) [phone] All of these can be contacted and updated about the patient's condition per patient.
[2022-02-04] MEDS: trazodone 150 mg Tablet PO (20:53)
[2022-02-04] MEDS: atorvastatin 40 mg Tablet 20 MG PO (20:53)
[2022-02-04] MEDS: CLONazepam 1 mg Tablet PO (20:53)
[2022-02-05] VITALS (10 sets, daily range): BP systolic 104–129; BP diastolic 65–81; PULSE 84–127; RESP 16–26; TEMP 36.4–36.9; O2SAT 89–94
[2022-02-05 04:30] LABS: Basophils # 0.1 10^3/uL (0.0-0.1); Basophils % 0.3 %; Eosinophils # 0.1 10^3/uL (0.0-0.8); Eosinophils % 0.6 %; Hematocrit 29.5 % (42.0-52.0); Lymphocytes # 0.9 10^3/uL (0.8-4.8); Lymphocytes % 4.5 %; Mean Corpuscular HGB Conc 33.9 g/dL (30.0-36.0); Mean Corpuscular Hemoglobin 28.8 pg (28.0-34.0); Mean Platelet Volume 8.3 fL (7.4-10.4); Monocytes # 1.7 10^3/uL (0.2-0.9); Monocytes % 8.8 %; Neutrophils # 16.65 10^3/uL (1.8-7.7); Neutrophils % 85.3 %; Nucleated Red Blood Cells % 0 %; Platelet Count 396 10^3/cmm (130-400); Red Blood Count 3.47 10^6/uL (4.1-5.3); Red Cell Distribution Width 14.1 % (12.1-15.1); White Blood Count 19.5 10^3/uL (4.0-10.0)
[2022-02-05] MEDS: piperacillin-tazobactam 3.375 GM in sodium chloride 0.9% (plus) 50 ML IV ×3 (04:45→21:43)
[2022-02-05] MEDS: enoxaparin 80 mg/0.8 mL Syringe SUBCUT ×2 (04:48→17:30)
[2022-02-05 04:52] LABS: Alanine Aminotransferase 18 U/L (0-41); Albumin Level 2.8 g/dL (3.5-5.2); Alkaline Phosphatase 105 IU/L (40-130); Anion Gap 10.6 (5-19); Aspartate Amino Transferase 21 U/L (0-40); Blood Urea Nitrogen 9 mg/dL (8-23); Calcium 9.1 mg/dL (8.5-10.5); Carbon Dioxide 28 mmol/L (22-29); Chloride 98 mmol/L (98-107); Globulin 3.1 g/dL (1.3-4.6); Glomerular Filtration Rate 74.3 mL/min (90-130); Glucose 104 mg/dL (65-115); Magnesium 1.7 mg/dL (1.7-2.3); Osmolality Calculated 275 mOsm/kg (285-295); Phosphorus 2.9 mg/dL (2.5-4.5); Potassium 3.6 mmol/L (3.5-5.1); Sodium 133 mmol/L (136-145); Total Bilirubin 0.3 mg/dL (0.15-1.2); Total Protein 5.9 g/dL (6.6-8.7)
[2022-02-05] MEDS: amiodarone 200 mg Tablet 400 MG PO ×2 (08:45→17:29)
[2022-02-05] MEDS: polyethylene glycol 3350 Pkt 17 gm PO ×2 (08:46→17:30)
[2022-02-05] MEDS: metoprolol tartrate 25 mg Tablet PO ×2 (08:48→21:43)
--- NOTE | 2022-02-05 14:10 | P.PN_ITS ---
Subjective Subjective: Patient was seen this morning, initially he refused to be seen, he did not want to be examined, later on he apologized, he tells me his appetite is improving, he is agreeable to going to hospice, he is also considering going to a skilled nursing, denies any fevers, reports poor appetite, weakness Vitals/I&O/Wt Last Vital Signs Temp 98.4 F 02/05/22 11:16 Pulse 118 H 02/05/22 11:16 Resp 16 02/05/22 11:16 BP 109/65 02/05/22 11:16 Pulse Ox 93 02/05/22 11:16 02/04/22 02/05/22 02/05/22 22:59 06:59 14:59 Intake Total 2216.667 / 4161.250 940 / 5101.250 1740 / 1740 Output Total 250 / 490 1600 / 2090 Balance 1966.667 / 3671.250 -660 / 3011.250 1740 / 1740 Weight last 48 hrs Weight 78.97 kg Physical Exam Const: COMMON NORMALS: no acute distress and patient oriented x3 Resp: COMMON NORMALS: normal respiratory effort, No retractions, No use of accessory muscles and clear to auscultation bilaterally AUSCULTATION: clear to auscultation bilaterally Cardio: COMMON NORMALS: regular rate, regular rhythm, S1 normal heart sound present and S2 normal heart sound present RATE: regular rate RHYTHM: regular rhythm HEART SOUNDS: S1 normal heart sound present and S2 normal heart sound present GI: COMMON NORMALS: Normal to inspection, nondistended, normoactive bowel sounds present, Soft to palpation and non-tender PALPATION: Yes Soft to palpation Extremity: COMMON NORMALS: no pedal edema Neuro: COMMON NORMALS: patient oriented x3 Psych: COMMON NORMALS: mental status grossly normal Data : 02/05/22 04:14 02/05/22 04:14 Micro: Microbiology 02/03/22 11:50 Gram Stain - Final Sputum - Expectorated Sputum Sputum Culture - Preliminary 02/03/22 16:30 MRSA Culture - Final Nose 02/03/22 12:16 Blood Culture - Preliminary Blood NEGATIVE TO DATE 02/03/22 11:34 Blood Culture - Preliminary Blood NEGATIVE TO DATE A&P Assessment and plan (1) AMS (altered mental status): Status: Acute (2) Fall: Status: Acute (3) Hypoxemia: Status: Acute (4) Hyperlipidemia: Status: Acute (5) COPD (chronic obstructive pulmonary disease): Status: Acute Qualifiers: COPD type: emphysema Emphysema type: centrilobular Qualified Code(s): J43.2 - Centrilobular emphysema (6) Hx of atrial flutter: Status: Acute (7) Lung cancer: Status: Acute (8) Postobstructive pneumonia: Status: Acute Plan Altered mental status, generalized weakness, shortness of breath CT of the chest shows There is been interval enlargement of the left upper lobe mass with occlusion of the left upper lobe bronchus and atelectasis of the left upper lobe. The mass invades the distal aspect of the left mainstem bronchus with moderate narrowing. -Likely secondary to postobstructive pneumonia -Currently alert and oriented x3 -Does have lung cancer, with metastasis to lymph nodes, left upper lobe, currently no evaluations for the last year, does not want to have any treatment, DNR/DNI -Now normotensive plan -Patient wants to proceed to hospice at a skilled nursing -Monitor respiratory status closely -Venous ultrasound negative for DVT, currently on therapeutic Lovenox, can continue Pradaxa on discharge -Follow blood cultures, -Vancomycin, Zosyn, MRSA PCR -Monitor respiratory status -DuoNeb -Monitor respiratory status closely, monitor mentation -CT of the brain no acute findings, but did show bilateral lacunar infarcts of the internal capsules -In the past has been discussion about doing MRI to rule out intracranial metastatic lesions, however patient has declined, will continue to monitor mentation, seizure precautions, certainly this could be playing a role to his changes in mentation --dehydration, MATT, IV fluids -Blood pressures have improved hold off on midodrine -Serum sodium has improved, discontinue IV fluids -Elevated troponins, serial EKGs, serial troponins, telemetry monitoring -Atrial flutter, add metoprolol 25 twice daily, continue with midodrine -For lung cancer, discharged to skilled nursing on hospice, awaiting placement Attestations Medical Necessity Statement*: Patient requires hospitalization for postobstructive pneumonia, proceeding to hospice Coding Level of Care 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
[2022-02-05] MEDS: pantoprazole 40 mg SDV IVP (17:30)
[2022-02-05] MEDS: trazodone 150 mg Tablet PO (21:43)
[2022-02-05] MEDS: CLONazepam 1 mg Tablet PO (21:43)
[2022-02-05] MEDS: atorvastatin 40 mg Tablet 20 MG PO (21:43)
[2022-02-05] MEDS: ipratropium-albuterol 3 mL Neb INHALATION (21:54)
[2022-02-06] VITALS (16 sets, daily range): BP systolic 112–134; BP diastolic 65–85; PULSE 89–123; RESP 16–18; TEMP 36.4–37.1; O2SAT 91–96
[2022-02-06] MEDS: piperacillin-tazobactam 3.375 GM in sodium chloride 0.9% (plus) 50 ML IV ×3 (04:00→20:45)
[2022-02-06] MEDS: enoxaparin 80 mg/0.8 mL Syringe SUBCUT ×2 (04:00→16:38)
[2022-02-06 04:19] LABS: Basophils # 0.1 10^3/uL (0.0-0.1); Basophils % 0.4 %; Eosinophils # 0.1 10^3/uL (0.0-0.8); Eosinophils % 0.4 %; Hematocrit 28.5 % (42.0-52.0); Hemoglobin 9.7 g/dL (11.7-16.6); Lymphocytes % 5.3 %; Mean Corpuscular Hemoglobin 28.9 pg (28.0-34.0); Mean Corpuscular Volume 84.8 fl (80-94); Mean Platelet Volume 8.4 fL (7.4-10.4); Monocytes # 1.6 10^3/uL (0.2-0.9); Monocytes % 8.5 %; Neutrophils # 15.68 10^3/uL (1.8-7.7); Neutrophils % 84.8 %; Nucleated Red Blood Cells % 0 %; Platelet Count 379 10^3/cmm (130-400); Red Blood Count 3.36 10^6/uL (4.1-5.3); White Blood Count 18.5 10^3/uL (4.0-10.0)
[2022-02-06 04:33] LABS: Chloride 99 mmol/L (98-107); Potassium 4.1 mmol/L (3.5-5.1); Sodium 133 mmol/L (136-145)
[2022-02-06 05:04] LABS: Alanine Aminotransferase 17 U/L (0-41); Albumin Level 2.8 g/dL (3.5-5.2); Alkaline Phosphatase 91 IU/L (40-130); Anion Gap 11.1 (5-19); Aspartate Amino Transferase 18 U/L (0-40); Blood Urea Nitrogen 8 mg/dL (8-23); Calcium 9.5 mg/dL (8.5-10.5); Carbon Dioxide 27 mmol/L (22-29); Glomerular Filtration Rate 83.9 mL/min (90-130); Glucose 86 mg/dL (65-115); Magnesium 1.8 mg/dL (1.7-2.3); Osmolality Calculated 274 mOsm/kg (285-295); Phosphorus 3.2 mg/dL (2.5-4.5); Total Bilirubin 0.3 mg/dL (0.15-1.2); Total Protein 5.8 g/dL (6.6-8.7)
[2022-02-06] MEDS: ipratropium-albuterol 3 mL Neb INHALATION ×4 (07:17→21:57)
[2022-02-06] MEDS: amiodarone 200 mg Tablet 400 MG PO ×2 (08:54→18:34)
[2022-02-06] MEDS: metoprolol tartrate 25 mg Tablet PO ×2 (08:55→20:45)
[2022-02-06] MEDS: polyethylene glycol 3350 Pkt 17 gm PO (09:19)
--- NOTE | 2022-02-06 12:59 | PC.SOCIAL ---
Pg 2 IMM. Explained to pt Pg 2 IMM. No questions voiced. Provided pt a copy. Initialed dated, & timed a copy & placed in chart.
--- NOTE | 2022-02-06 14:36 | PM.PN ---
Subjective Subjective: Patient was seen this morning, he has no complaints, continues to have persistent cough, complains of weakness Vitals/I&O/Wt Last Vital Signs Temp 98.3 F 02/06/22 11:58 Pulse 103 H 02/06/22 11:58 Resp 16 02/06/22 11:58 BP 112/77 02/06/22 11:58 Pulse Ox 95 02/06/22 11:58 02/05/22 02/06/22 02/06/22 22:59 06:59 14:59 Intake Total 50 / 1790 650 / 2440 530 / 530 Output Total 800 / 800 2000 / 2800 Balance -750 / 990 -1350 / -360 530 / 530 Weight last 48 hrs Weight 78.517 kg Weight 78.97 kg Physical Exam Const: COMMON NORMALS: no acute distress and patient oriented x3 Resp: COMMON NORMALS: normal respiratory effort, No retractions and No use of accessory muscles AUSCULTATION: diminished lung sounds diffuse Cardio: COMMON NORMALS: regular rate, regular rhythm, S1 normal heart sound present and S2 normal heart sound present RATE: regular rate RHYTHM: regular rhythm HEART SOUNDS: S1 normal heart sound present and S2 normal heart sound present GI: COMMON NORMALS: Normal to inspection, nondistended, normoactive bowel sounds present, Soft to palpation and non-tender PALPATION: Yes Soft to palpation Extremity: COMMON NORMALS: no pedal edema Neuro: COMMON NORMALS: patient oriented x3 Psych: COMMON NORMALS: mental status grossly normal Data : 02/06/22 04:00 02/06/22 04:00 Micro: Microbiology 02/03/22 11:50 Gram Stain - Final Sputum - Expectorated Sputum Sputum Culture - Final A&P Assessment and plan (1) AMS (altered mental status): Status: Acute (2) Fall: Status: Acute (3) Hypoxemia: Status: Acute (4) Hyperlipidemia: Status: Acute (5) COPD (chronic obstructive pulmonary disease): Status: Acute Qualifiers: COPD type: emphysema Emphysema type: centrilobular Qualified Code(s): J43.2 - Centrilobular emphysema (6) Hx of atrial flutter: Status: Acute (7) Lung cancer: Status: Acute (8) Postobstructive pneumonia: Status: Acute Plan Altered mental status, generalized weakness, shortness of breath CT of the chest shows There is been interval enlargement of the left upper lobe mass with occlusion of the left upper lobe bronchus and atelectasis of the left upper lobe. The mass invades the distal aspect of the left mainstem bronchus with moderate narrowing. -Likely secondary to postobstructive pneumonia -Currently alert and oriented x3 -Does have lung cancer, with metastasis to lymph nodes, left upper lobe, currently no evaluations for the last year, does not want to have any treatment, DNR/DNI -Now normotensive plan -Patient wants to proceed to hospice at a halfway -Monitor respiratory status closely -Venous ultrasound negative for DVT, currently on therapeutic Lovenox, can continue Pradaxa on discharge -Follow blood cultures, -Vancomycin, Zosyn, MRSA PCR -Monitor respiratory status -DuoNeb -Monitor respiratory status closely, monitor mentation -CT of the brain no acute findings, but did show bilateral lacunar infarcts of the internal capsules -In the past has been discussion about doing MRI to rule out intracranial metastatic lesions, however patient has declined, will continue to monitor mentation, seizure precautions, certainly this could be playing a role to his changes in mentation --dehydration, MATT, IV fluids -Blood pressures have improved hold off on midodrine -Serum sodium has improved, discontinue IV fluids -Elevated troponins, serial EKGs, serial troponins, telemetry monitoring -Atrial flutter, add metoprolol 25 twice daily, with amiodarone 400 twice daily -For lung cancer, discharged to halfway on hospice, awaiting placement Attestations Medical Necessity Statement*: Patient requires hospitalization for postobstructive pneumonia Coding Level of 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
[2022-02-06] MEDS: pantoprazole 40 mg SDV IVP (16:38)
[2022-02-06] MEDS: CLONazepam 1 mg Tablet PO (20:44)
[2022-02-06] MEDS: trazodone 150 mg Tablet PO (20:44)
[2022-02-06] MEDS: atorvastatin 40 mg Tablet 20 MG PO (20:45)
[2022-02-07] VITALS (13 sets, daily range): BP systolic 105–143; BP diastolic 58–75; PULSE 94–117; RESP 17–19; TEMP 36.7–37.1; O2SAT 92–97
[2022-02-07] MEDS: piperacillin-tazobactam 3.375 GM in sodium chloride 0.9% (plus) 50 ML IV ×3 (04:26→21:37)
[2022-02-07] MEDS: enoxaparin 80 mg/0.8 mL Syringe SUBCUT ×2 (04:26→19:15)
[2022-02-07 04:41] LABS: Basophils % 0.2 %; Eosinophils # 0.1 10^3/uL (0.0-0.8); Eosinophils % 0.5 %; Hematocrit 27.1 % (42.0-52.0); Hemoglobin 9.1 g/dL (11.7-16.6); Lymphocytes # 0.7 10^3/uL (0.8-4.8); Lymphocytes % 3.9 %; Mean Corpuscular HGB Conc 33.6 g/dL (30.0-36.0); Mean Corpuscular Hemoglobin 28.8 pg (28.0-34.0); Mean Corpuscular Volume 85.8 fl (80-94); Mean Platelet Volume 8.2 fL (7.4-10.4); Monocytes # 1.6 10^3/uL (0.2-0.9); Monocytes % 9.1 %; Neutrophils # 14.78 10^3/uL (1.8-7.7); Neutrophils % 85.9 %; Nucleated Red Blood Cells % 0 %; Platelet Count 351 10^3/cmm (130-400); Red Blood Count 3.16 10^6/uL (4.1-5.3); Red Cell Distribution Width 14.1 % (12.1-15.1); White Blood Count 17.2 10^3/uL (4.0-10.0)
[2022-02-07 05:00] LABS: Alanine Aminotransferase 16 U/L (0-41); Albumin Level 2.9 g/dL (3.5-5.2); Alkaline Phosphatase 87 IU/L (40-130); Anion Gap 11.5 (5-19); Aspartate Amino Transferase 19 U/L (0-40); Blood Urea Nitrogen 10 mg/dL (8-23); Calcium 9.3 mg/dL (8.5-10.5); Carbon Dioxide 27 mmol/L (22-29); Chloride 98 mmol/L (98-107); Globulin 2.8 g/dL (1.3-4.6); Glomerular Filtration Rate 66.6 mL/min (90-130); Glucose 99 mg/dL (65-115); Osmolality Calculated 275 mOsm/kg (285-295); Potassium 3.5 mmol/L (3.5-5.1); Sodium 133 mmol/L (136-145); Total Bilirubin 0.3 mg/dL (0.15-1.2); Total Protein 5.7 g/dL (6.6-8.7)
[2022-02-07 07:41] LABS: Vancomycin Trough 9.6 ug/mL (10-15)
[2022-02-07] MEDS: metoprolol tartrate 25 mg Tablet PO ×2 (09:02→21:35)
[2022-02-07] MEDS: amiodarone 200 mg Tablet 400 MG PO ×2 (09:02→19:14)
[2022-02-07] MEDS: ipratropium-albuterol 3 mL Neb INHALATION ×3 (09:02→21:31)
--- NOTE | 2022-02-07 14:54 | PM.PN ---
Subjective Subjective: Patient was seen this morning, upon entering the room, he tells me he wants me to get out of here, he does not want to be examined, he does not want to talk to me, he was not exactly clear why, this is happened in the past on Tuesday, when he did want to talk to me, eventually apologize, but today he does not want to see me, I was unable to do a physical exam, but I did discuss with him that he has a postobstructive pneumonia he is responding well to antibiotics, I would strongly advise for him to go to a [facility]it[facility]iary on hospice or at least home on hospice however what I hear from nursing staff and case workers that he does not have help at home, however he does not want to hear anything of this, he tells me to get out of his room, I was unable to examine patient Vitals/I&O/Wt Last Vital Signs Temp 98.6 F 02/07/22 12:00 Pulse 110 H 02/07/22 14:00 Resp 17 02/07/22 12:00 BP 113/75 02/07/22 12:00 Pulse Ox 96 02/07/22 12:00 02/06/22 02/07/22 02/07/22 22:59 06:59 14:59 Intake Total 290 / 1070 1830 / 2900 420 / 420 Balance 290 / 1070 1830 / 2900 420 / 420 Weight last 48 hrs Weight 46.357 kg Weight 79.197 kg Weight 78.517 kg Data : 02/07/22 04:32 02/07/22 04:32 Micro: Microbiology 02/03/22 11:50 Gram Stain - Final Sputum - Expectorated Sputum Sputum Culture - Final A&P Assessment and plan (1) AMS (altered mental status): Status: Acute (2) Fall: Status: Acute (3) Hypoxemia: Status: Acute (4) Hyperlipidemia: Status: Acute (5) COPD (chronic obstructive pulmonary disease): Status: Acute Qualifiers: COPD type: emphysema Emphysema type: centrilobular Qualified Code(s): J43.2 - Centrilobular emphysema (6) Hx of atrial flutter: Status: Acute (7) Lung cancer: Status: Acute (8) Postobstructive pneumonia: Status: Acute Plan Altered mental status, generalized weakness, shortness of breath CT of the chest shows There is been interval enlargement of the left upper lobe mass with occlusion of the left upper lobe bronchus and atelectasis of the left upper lobe. The mass invades the distal aspect of the left mainstem bronchus with moderate narrowing. -Likely secondary to postobstructive pneumonia -Currently alert and oriented x3 -Does have lung cancer, with metastasis to lymph nodes, left upper lobe, currently no evaluations for the last year, does not want to have any treatment, DNR/DNI -Now normotensive plan -Patient wants to proceed to hospice at a penitentiary according to case workers and nursing staff, however he refused to discuss this with me -Monitor respiratory status closely -Venous ultrasound negative for DVT, currently on therapeutic Lovenox, can continue Pradaxa on discharge -Follow blood cultures, -Vancomycin, Zosyn, MRSA PCR -Monitor respiratory status -DuoNeb -Monitor respiratory status closely, monitor mentation -CT of the brain no acute findings, but did show bilateral lacunar infarcts of the internal capsules -In the past has been discussion about doing MRI to rule out intracranial metastatic lesions, however patient has declined, will continue to monitor mentation, seizure precautions, certainly this could be playing a role to his changes in mentation --dehydration, MATT, IV fluids -Blood pressures have improved hold off on midodrine -Serum sodium has improved, discontinue IV fluids -Elevated troponins, serial EKGs, serial troponins, telemetry monitoring -Atrial flutter, add metoprolol 25 twice daily, with amiodarone 400 twice daily -For lung cancer, [facility] to [facility], awaiting placement Attestations Medical Necessity Statement*: Patient requires hospitalization for postobstructive pneumonia, lung cancer Coding Level of Care 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
[2022-02-07] MEDS: pantoprazole 40 mg SDV IVP (19:14)
[2022-02-07] MEDS: trazodone 150 mg Tablet PO (21:35)
[2022-02-07] MEDS: CLONazepam 1 mg Tablet PO (21:35)
[2022-02-07] MEDS: atorvastatin 40 mg Tablet 20 MG PO (21:35)
[2022-02-08] VITALS (10 sets, daily range): BP systolic 113–143; BP diastolic 68–76; PULSE 94–116; RESP 17–20; TEMP 36.5–36.9; O2SAT 91–94
[2022-02-08] MEDS: enoxaparin 80 mg/0.8 mL Syringe SUBCUT (04:24)
[2022-02-08] MEDS: piperacillin-tazobactam 3.375 GM in sodium chloride 0.9% (plus) 50 ML IV ×2 (04:26→13:35)
[2022-02-08 04:42] LABS: Basophils # 0.1 10^3/uL (0.0-0.1); Basophils % 0.3 %; Eosinophils # 0.1 10^3/uL (0.0-0.8); Eosinophils % 0.6 %; Hematocrit 29.9 % (42.0-52.0); Lymphocytes # 0.8 10^3/uL (0.8-4.8); Mean Corpuscular HGB Conc 33.4 g/dL (30.0-36.0); Mean Corpuscular Hemoglobin 28.9 pg (28.0-34.0); Mean Corpuscular Volume 86.4 fl (80-94); Mean Platelet Volume 8.3 fL (7.4-10.4); Monocytes # 1.7 10^3/uL (0.2-0.9); Monocytes % 8.7 %; Neutrophils # 16.51 10^3/uL (1.8-7.7); Neutrophils % 85.9 %; Nucleated Red Blood Cells % 0 %; Platelet Count 385 10^3/cmm (130-400); Red Blood Count 3.46 10^6/uL (4.1-5.3); Red Cell Distribution Width 14.2 % (12.1-15.1); White Blood Count 19.2 10^3/uL (4.0-10.0)
[2022-02-08 05:03] LABS: Alanine Aminotransferase 27 U/L (0-41); Albumin Level 3.2 g/dL (3.5-5.2); Alkaline Phosphatase 97 IU/L (40-130); Anion Gap 13.9 (5-19); Aspartate Amino Transferase 27 U/L (0-40); Blood Urea Nitrogen 10 mg/dL (8-23); Calcium 9.8 mg/dL (8.5-10.5); Carbon Dioxide 27 mmol/L (22-29); Chloride 96 mmol/L (98-107); Globulin 3.5 g/dL (1.3-4.6); Glomerular Filtration Rate 66.6 mL/min (90-130); Glucose 116 mg/dL (65-115); Magnesium 1.8 mg/dL (1.7-2.3); Osmolality Calculated 276 mOsm/kg (285-295); Phosphorus 3.2 mg/dL (2.5-4.5); Potassium 3.9 mmol/L (3.5-5.1); Sodium 133 mmol/L (136-145); Total Bilirubin 0.3 mg/dL (0.15-1.2); Total Protein 6.7 g/dL (6.6-8.7)
[2022-02-08] MEDS: ipratropium-albuterol 3 mL Neb INHALATION ×2 (08:03→12:19)
[2022-02-08] MEDS: vancomycin 1,250 MG/250 ML PIGGYBACK 250 MG IV (08:27)
[2022-02-08] MEDS: amiodarone 200 mg Tablet 400 MG PO (08:29)
[2022-02-08] MEDS: metoprolol tartrate 25 mg Tablet PO (08:33)
--- NOTE | 2022-02-08 12:40 | P.DS_ITS ---
Discharge Providers Date of Admission: 02/03/22 12:49 Date of Discharge: February 08, 2022 Attending Provider at Admission: Obinna Ragland MD Attending Provider at Discharge: Obinna Ragland MD Primary Care Provider: Luis Alberto Brooke MD Diagnoses at Discharge Discharge Diagnosis (1) AMS (altered mental status): Status: Acute (2) Fall: Status: Acute (3) Hypoxemia: Status: Acute (4) Hyperlipidemia: Status: Acute (5) COPD (chronic obstructive pulmonary disease): Status: Acute Qualifiers: COPD type: emphysema Emphysema type: centrilobular Qualified Code(s): J43.2 - Centrilobular emphysema (6) Hx of atrial flutter: Status: Acute (7) Lung cancer: Status: Acute (8) Postobstructive pneumonia: Status: Acute Reason for Visit Reason for Visit: AMS Hospital Course Hospital Course Bradley Edwards is a 66 year old male with a past medical history of 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 Patient was admitted to Altered mental status, generalized weakness, shortness of breath CT of the chest shows There is been interval enlargement of the left upper lobe mass with occlusion of the left upper lobe bronchus and atelectasis of the left upper lobe. The mass invades the distal aspect of the left mainstem bronchus with moderate narrowing. -Likely secondary to postobstructive pneumonia -Currently alert and oriented x3 -Does have lung cancer, with metastasis to lymph nodes, left upper lobe, currently no evaluations for the last year, does not want to have any treatment, DNR/DNI -Patient required IV fluids, broad-spectrum antibiotic therapy, clinically improved, remained afebrile, normotensive, on room air, discharged on Levaquin -Venous ultrasound negative for DVT, discharged on his home Pradaxa -CT of the brain no acute findings, but did show bilateral lacunar infarcts of the internal capsules -In the past has been discussion about doing MRI to rule out intracranial metastatic lesions, however patient has declined, will continue to monitor mentation, seizure precautions, certainly this could be playing a role to his changes in mentation -Patient's mentation significantly improved, however he did have episodes of agitation,, confusion, on discharge alert oriented to person, to place, not to time, following commands -For his atrial fibrillation discharge him in trouble 25 twice daily, amiodarone 400 twice daily, with instructions to decrease to 400 once daily in 2 weeks, continue Pradaxa -For his metastatic lung cancer, after discussion with patient, agreed to proceed [facility] -During his hospitalization, patient had episodes of agitation, anger outburst, several times he asked me to leave the room, on 02/08/2022 he asked me to leave the room, nursing staff came into the room and were able to calm him down, he was able to speak with me further, I discussed patient's discharge plan -I have again in the presence of nursing staff confirmed with him that he would like to go to a penitentiary on hospice, he does not want to have any further treatment for his cancer, he voiced understanding, all questions answered, agreed to proceed to [facility] -Agreeable on plan for his pneumonia, atrial fibrillation Physical Exam Const: COMMON NORMALS: no acute distress and patient oriented x3 Resp: COMMON NORMALS: normal respiratory effort, No retractions, No use of accessory muscles and clear to auscultation bilaterally AUSCULTATION: clear to auscultation bilaterally Cardio: COMMON NORMALS: regular rate, regular rhythm, S1 normal heart sound present and S2 normal heart sound present RATE: regular rate RHYTHM: regular rhythm HEART SOUNDS: S1 normal heart sound present and S2 normal heart sound present GI: COMMON NORMALS: Normal to inspection, nondistended, normoactive bowel sounds present, Soft to palpation and non-tender PALPATION: Yes Soft to palpation Extremity: COMMON NORMALS: no pedal edema Neuro: COMMON NORMALS: patient oriented x3 Psych: COMMON NORMALS: mental status grossly normal Discharge Data Studies Completed and Pending Completed Studies During Hospitalization Category Date Time Status CT chest abdomen pelvis [[place] [id number] Cat Scan 02/03/22 15:52 Completed ] Urgent CT head wo con* [id number] Urgent Cat Scan 02/03/22 11:06 Completed XR chest 1V portable [id number] Urgent Exams 02/03/22 12:55 [place] [id number] Urgent Ultrasound 02/03/22 15:52 Completed Pending at discharge Category Date Time Status Blood Culture Stat Lab 02/03/22 11:34 Results Complete Blood Count w/Auto AM LABS Lab 02/09/22 04:00 Ordered Complete Blood Count w/Auto AM LABS Lab 02/10/22 04:00 Ordered Comprehensive Metabolic Panel AM LABS Lab 02/09/22 04:00 Ordered Comprehensive Metabolic Panel AM LABS Lab 02/10/22 04:00 Ordered Magnesium AM LABS Lab 02/09/22 04:00 Ordered Magnesium AM LABS Lab 02/10/22 04:00 Ordered Phosphorus AM LABS Lab 02/09/22 04:00 Ordered Phosphorus AM LABS Lab 02/10/22 04:00 Ordered Radiology Impressions Head CT 02/03/22 11:06 IMPRESSION: 1. No acute intracranial hemorrhage or edema. 2. Bilateral lacunar infarcts in the internal capsules. Mild small vessel ischemic disease. Chest X-Ray 02/03/22 12:55 IMPRESSION: There is consolidation of the left upper lung field where a mass was seen on the prior CT scan. Superimposed pneumonia cannot be excluded. Chest/Abdomen/Pelvis CT 02/03/22 15:52 IMPRESSION: There is been interval enlargement of the left upper lobe mass with occlusion of the left upper lobe bronchus and atelectasis of the left upper lobe. The mass invades the distal aspect of the left mainstem bronchus with moderate narrowing. IMPRESSION: There is a small right inguinal hernia containing a short segment of a small bowel loop with no evidence for strangulation or obstruction. Laboratory Results WBC 19.2 10^3/uL (4.0-10.0) H 02/08/22 04:29 RBC 3.46 10^6/uL (4.1-5.3) L 02/08/22 04:29 Hgb 10.0 g/dL (11.7-16.6) L 02/08/22 04:29 Hct 29.9 % (42.0-52.0) L 02/08/22 04:29 MCV 86.4 fl (80-94) 02/08/22 04:29 MCH 28.9 pg (28.0-34.0) 02/08/22 04:29 MCHC 33.4 g/dL (30.0-36.0) 02/08/22 04:29 RDW 14.2 % (12.1-15.1) 02/08/22 04:29 Plt Count 385 10^3/cmm (130-400) 02/08/22 04:29 MPV 8.3 fL (7.4-10.4) 02/08/22 04:29 Neut % (Auto) 85.9 % 02/08/22 04:29 Lymph % (Auto) 4.0 % 02/08/22 04:29 Crane % (Auto) 8.7 % 02/08/22 04:29 Eos % (Auto) 0.6 % 02/08/22 04:29 Baso % (Auto) 0.3 % 02/08/22 04:29 Neut # (Auto) 16.51 10^3/uL (1.8-7.7) H 02/08/22 04:29 Lymph # (Auto) 0.8 10^3/uL (0.8-4.8) 02/08/22 04:29 Crane # (Auto) 1.7 10^3/uL (0.2-0.9) H 02/08/22 04:29 Eos # (Auto) 0.1 10^3/uL (0.0-0.8) 02/08/22 04:29 Baso # (Auto) 0.1 10^3/uL (0.0-0.1) 02/08/22 04:29 Nucleated RBC % (auto) 0 % 02/08/22 04:29 Nucleated RBCs # 0.0 /100WBC 02/08/22 04:29 D-Dimer 0.96 ug/mIFEU (0-0.59) H 02/03/22 11:20 Specimen Type Arterial 02/03/22 11:45 Sample Site Brachial, right 02/03/22 11:45 ABG pH 7.43 (7.35-7.45) 02/03/22 11:45 ABG pCO2 39.7 mmHg (35-45) 02/03/22 11:45 ABG pO2 69.9 mmHg (80.0-100.0) L 02/03/22 11:45 ABG HCO3 26.2 mmol/L (22-26) H 02/03/22 11:45 ABG O2 Saturation 94.4 02/03/22 11:45 ABG Base Excess 1.7 mmol/L (-2.0-2.0) 02/03/22 11:45 [place] Test N/a 02/03/22 11:45 A-a O2 Gradient 3.9 mmHg (5-10) L 02/03/22 11:45 Hematocrit 28.5 % (42-52) L 02/03/22 11:45 Hgb O2 Saturation 92.9 % (95-100) L 02/03/22 11:45 Carboxyhemoglobin 1.1 %THgb (0.4-20.1) 02/03/22 11:45 Methemoglobin 0.5 % (0.4-1.5) 02/03/22 11:45 Total Hemoglobin 9.3 g/dL (14-18) L 02/03/22 11:45 Sodium 131.0 mmol/L (131-143) 02/03/22 11:45 Potassium 3.7 mmol/L (3.5-5.0) 02/03/22 11:45 Glucose 109.0 mg/dL (70-115) 02/03/22 11:45 Ionized Calcium 1.4 mmol/L (1.1-1.4) 02/03/22 11:45 O2 Delivery Device Nc 02/03/22 11:45 O2 Liters/Min 2.0 % 02/03/22 11:45 Product Support Engineer ID [email or web address] 02/03/22 11:45 Sodium 133 mmol/L (136-145) L 02/08/22 04:29 Potassium 3.9 mmol/L (3.5-5.1) 02/08/22 04:29 Chloride 96 mmol/L (98-107) L 02/08/22 04:29 Carbon Dioxide 27 mmol/L (22-29) 02/08/22 04:29 Anion Gap 13.9 (5-19) 02/08/22 04:29 BUN 10 mg/dL (8-23) 02/08/22 04:29 Creatinine 1.1 mg/dL (0.7-1.2) 02/08/22 04:29 GFR Calculation 66.6 mL/min (90-130) L 02/08/22 04:29 Glucose 116 mg/dL (65-115) H 02/08/22 04:29 POC Glucose 116 mg/dL (70-110) H 02/03/22 11:31 Calculated Osmolality 276 mOsm/kg (285-295) L 02/08/22 04:29 Lactic Acid 0.7 mmol/L (0.5-2.2) 02/04/22 08:12 Lactate 1.5 mmol/L (0.5-2.2) 02/03/22 11:34 Calcium 9.8 mg/dL (8.5-10.5) 02/08/22 04:29 Phosphorus 3.2 mg/dL (2.5-4.5) 02/08/22 04:29 Magnesium 1.8 mg/dL (1.7-2.3) 02/08/22 04:29 Total Bilirubin 0.3 mg/dL (0.15-1.2) 02/08/22 04:29 AST 27 U/L (0-40) 02/08/22 04:29 ALT 27 U/L (0-41) 02/08/22 04:29 Alkaline Phosphatase 97 IU/L (40-130) 02/08/22 04:29 Ammonia 25 umol/L (16-60) 02/03/22 11:20 Creatine Kinase 91 U/L (39-308) 02/03/22 13:20 Troponin T Baseline 29 ng/L (0-15) H 02/03/22 11:20 Troponin T 120 Minute 24.85 ng/L (0-15) H 02/03/22 13:26 Delta Troponin T -4.15 ABS# (0-10) L 02/03/22 13:26 C-Reactive Protein 23.9 mg/L (0.0-4.9) H 02/03/22 13:20 NT-Pro-B Natriuret Pep 2159 pg/mL (0-125) H 02/03/22 11:20 Total Protein 6.7 g/dL (6.6-8.7) 02/08/22 04:29 Albumin 3.2 g/dL (3.5-5.2) L 02/08/22 04:29 Globulin 3.5 g/dL (1.3-4.6) 02/08/22 04:29 Lipase 8 U/L (13-60) L 02/03/22 11:20 Procalcitonin 0.10 ng/mL (0-0.5) 02/03/22 13:20 TSH 3.53 uIU/mL (0.27-4.20) 02/03/22 11:20 Free T4 1.71 ng/dL (0.82-1.77) 02/03/22 11:20 Urine Color Yellow (Yellow) 02/03/22 11:57 Urine Appearance Clear (CLEAR) 02/03/22 11:57 Urine pH 6 (5-7) 02/03/22 11:57 Ur Specific [place] 1.010 (1.005-1.030) 02/03/22 11:57 Urine Protein Neg (Negative) 02/03/22 11:57 Urine Glucose (UA) Norm (Normal) 02/03/22 11:57 Urine Ketones Negative (Negative) 02/03/22 11:57 Urine Blood Neg (Negative) 02/03/22 11:57 Urine Nitrate Negative (Negative) 02/03/22 11:57 Urine Bilirubin Neg (Negative) 02/03/22 11:57 Urine Urobilinogen Norm mg/dL (Negative) 02/03/22 11:57 Ur Leukocyte Esterase Negative (Negative) 02/03/22 11:57 Vancomycin Trough 9.6 ug/mL (10-15) L 02/07/22 07:01 Salicylates < 0.3 mg/dL (3-10) L 02/03/22 11:20 Urine Opiates Screen Negative ng/mL (Negative) 02/03/22 11:57 Acetaminophen < 5.0 ug/mL (10-30) L 02/03/22 11:20 Ur Barbiturates Screen Negative ng/mL (Negative) 02/03/22 11:57 Ur Phencyclidine Scrn Negative ng/mL (Negative) 02/03/22 11:57 Ur Amphetamines Screen Negative ng/mL (Negative) 02/03/22 11:57 U Benzodiazepines Scrn Negative ng/mL (Negative) 02/03/22 11:57 Urine Cocaine Screen Negative ng/mL (Negative) 02/03/22 11:57 U Marijuana (THC) Screen Negative ng/mL (Negative) 02/03/22 11:57 Ethyl Alcohol < 10 mg/dL (0-10) 02/03/22 13:20 Coronavirus 229E (PCR) Not detected (NOT DETECT) 02/03/22 16:30 SARS-CoV-2 (PCR) Not detected (NOT DETECT) 02/03/22 16:30 Vitals Last Vital Signs Temp 98.3 F 02/08/22 11:44 Pulse 94 02/08/22 12:20 Resp 18 02/08/22 12:20 BP 123/71 02/08/22 11:44 Pulse Ox 94 02/08/22 12:20 Discharge Plan Discharge Patient Disposition: Hospice - Medical Facility Condition: Stable Prescriptions: New amiodarone [Pacerone] 200 mg Tablet 400 mg PO BID 30 Days Qty: 120 0RF metoprolol tartrate 25 mg Tablet 25 mg PO BID@0900,2100 30 Days Qty: 60 0RF levofloxacin 750 mg tablet 750 mg PO DAILY 7 Days Qty: 7 0RF Continued Pradaxa 150 mg capsule 150 mg PO BID 0RF Hold Instructions: Resume on 08/29/20. azelastine 137 mcg (0.1 %) aerosol,spray 2 spray INTRANASAL BID 0RF atorvastatin 20 mg tablet 20 mg PO BEDTIME 0RF docusate sodium [Colace] 100 mg capsule 100 mg PO DAILY 0RF Anoro Ellipta 62.5-25 mcg/actuation blister with device 1 inh INHALATION Q24H 0RF albuterol sulfate [Ventolin HFA] 90 mcg/actuation HFA aerosol inhaler 2 - 4 puff INHALATION Q6H PRN (Reason: shortness of breath ) 0RF cetirizine [Zyrtec] 10 mg tablet 10 mg PO BEDTIME 0RF potassium gluconate 600 mg (99 mg) tablet 600 mg PO DAILY 0RF Centrum Silver Mens +50 Gummie 1 tab PO DAILY 0RF Tylenol Ex Str Rapid Release 500 mg Tablet 500 - 1,000 mg PO Q6H PRN (Reason: Pain) 0RF Certavite-Antioxidant 18-400 mg-mcg tablet 1 tab PO DAILY 0RF clonazepam 1 mg tablet 1 mg PO BEDTIME 0RF trazodone 100 mg tablet 150 mg PO BEDTIME 0RF Discontinued diltiazem HCl 60 mg tablet 60 mg PO TID 0RF metoprolol tartrate 25 mg tablet 12.5 mg PO BID 0RF trihexyphenidyl 2 mg tablet 2 mg PO BEDTIME 0RF fluphenazine HCl 5 mg tablet 5 mg PO BEDTIME 0RF Discharge Orders: Discharge Order (Routine); Ordered 06/20/22 Ordered By: Obinna Ragland Referrals: Luis Alberto Brooke MD [Primary Care Provider] - Discharge Diet: Regular and Cardiac Discharge Activity: Resume usual activity Discharge Attestations Time Spent in Discharge Care*: less than 30 min Quality Metrics Clinical Quality Measures [ No reported AMI, CVA or VTE this stay] Coding Level of Care Code Acute Chg FW DC note Diagnoses AMS (altered mental status) R41.82 Fall W19.XXXA Hypoxemia R09.02 Hyperlipidemia E78.5 COPD (chronic obstructive pulmonary disease) J43.2 COPD type: emphysema Emphysema type: centrilobular Hx of atrial flutter Z86.79 Lung cancer C34.90 Postobstructive pneumonia J18.9
--- NOTE | 2022-02-08 14:31 | PC.SOCIAL ---
Pg 2 IMM. Explained to pt Pg 2 IMM. No questions voiced. Provided pt a copy. Initialed dated, & timed a copy & placed in chart.
--- NOTE | 2022-02-08 17:06 | PC.NURSE ---
Called report to facility. All questions answered.
== END 2022-02-08 17:08 | disposition hospice, inpatient (51) | DRG 194 ==
LOC: ER 11:34 → MEDSURG 15:08
PROVIDERS: Admitting Provider Family Medicine; Emergency Provider Emergency Medicine; PCP Family Medicine; Visit Provider Family Medicine
DX: J18.9 Pneumonia, unspecified organism (principal); C34.12 Malignant neoplasm of upper lobe, left bronchus or lung; C77.1 Secondary and unspecified malignant neoplasm of intrathoracic lymph nodes; J98.11 Atelectasis; E87.1 Hypo-osmolality and hyponatremia; I48.92 Unspecified atrial flutter; R41.82 Altered mental status, unspecified; I48.91 Unspecified atrial fibrillation; J43.2 Centrilobular emphysema; R45.1 Restlessness and agitation; R79.1 Abnormal coagulation profile; E88.01 Alpha-1-antitrypsin deficiency; E78.5 Hyperlipidemia, unspecified; F17.210 Nicotine dependence, cigarettes, uncomplicated; F20.9 Schizophrenia, unspecified; E86.0 Dehydration; I95.9 Hypotension, unspecified; Z91.81 History of falling; Z66 Do not resuscitate; Z79.01 Long term (current) use of anticoagulants
CPT/HCPCS: 36415; 36416; 36600; 70450; 71045; 71250; 74176; 80051; 80053; 80202; 80306; 80307; 81003; 82140; 82330; 82550; 82805; 82962; 83605; 83690; 83735; 83880; 84100; 84145; 84439; 84443; 84484; 85025; 85378; 86140; 87040; 87070; 87205; 87635; 87641; 92523; 92610; 93005; 93970; 94640; 94664; 96365; 96367; 96372; 96375; 97165; 99285; C9113; J0692; J1160; J1650; J2543; J3370; J3490; J7030; J7040; J7050

== ENCOUNTER 2022-02-25 13:38 | Oncology outpatient (recurring) (ONCR) | payer MEDICARE, MEDICAID, SELFPAY ==
[2022-02-12 08:14] VITALS: BP 110/75; BMI 26.6
== END 2022-02-25 23:59 | disposition home or self-care (01) ==
PROVIDERS: PCP Family Medicine; Visit Provider Internal Medicine Hematology & Oncology
DX: C34.12 Malignant neoplasm of upper lobe, left bronchus or lung (principal); J18.9 Pneumonia, unspecified organism; F17.210 Nicotine dependence, cigarettes, uncomplicated; F25.0 Schizoaffective disorder, bipolar type; J43.2 Centrilobular emphysema; E88.01 Alpha-1-antitrypsin deficiency
CPT/HCPCS: 99214

== ENCOUNTER 2022-03-02 13:07 | Inpatient (IN) | payer MEDICARE, MEDICAID, SELFPAY ==
[2022-02-12 08:14] VITALS: BP 110/75; BMI 26.6
[2022-03-02] VITALS (11 sets, daily range): BP systolic 114–150; BP diastolic 65–76; PULSE 71–91; RESP 18–22; TEMP 36.4–36.7; O2SAT 94–99
--- NOTE | 2022-03-02 13:09 | XRR_ITS ---
PROCEDURE INFORMATION: Exam: XR Chest Exam date and time: 03/02/2022 1:22 PM Age: 66 years old Clinical indication: Dyspnea; Patient HX: History--sob. HX of copd, lung cancer HX; Additional info: Patient has become increasingly short of breath and wheezing last 3 days TECHNIQUE: Imaging protocol: Radiologic exam of the chest. Views: 1 view. COMPARISON: [place] [id number] 02/03/2022 5:12 PM FINDINGS: Lungs: Left upper lobe airspace disease which can be due to pneumonia and/or atelectasis though there has been some interval re-aeration of the left upper lobe. Pleural spaces: Trace right pleural effusion. Heart/Mediastinum: The heart is not enlarged. The mediastinal contours are normal. Vasculature: The aorta is atherosclerotic. Bones/joints: No acute osseous abnormality. XR/XR chest 1V portable [id number] IMPRESSION: Left upper lobe pneumonia and/or atelectasis.
--- NOTE | 2022-03-02 13:09 | ECG_ITS ---
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 Measurements Intervals [place] Rate: 79 P: 261 RI: 215 QRS: 72 QRSD: 110 T: 45 QT: 392 QTc: 451 Interpretive Statements Atrial flutter MODERATE ST DEPRESSION [0.05+ mV ST DEPRESSION] Compared to ECG 02/03/2022 11:46:24 First degree AV block now present ST (T wave) deviation now present Atrial flutter no longer present Electronically Signed On 03-02-2022 17:29:28 CDT by Carlos Troy M.D. [id number]
--- NOTE | 2022-03-02 13:12 | W.ED.GENADLT ---
HPI - General Adult General: Chief complaint: Shortness of Breath/Dyspnea Stated complaint: SOB Time Seen by Provider: 03/02/22 13:08 History of Present Illness: Patient is 58-year-old male with bilateral lung cancer on chemoradiation treatment followed by Dr. Melchor, chronically on 3L of oxygen, s/p thyroidectomy presenting to the emergency room with complaints of dyspnea for the last 3 days. Patient tells me that he has become increasingly short of breath and wheezing. Patient denies any productive cough, fever/chills, chest pain, abdominal, nausea/vomiting, diarrhea/melena/hematochezia. He has no complaints. Onset:3 days ago Duration:3 days Location:home Severity:moderate Associated symptoms: Reports dyspnea and malaise; Deny chest pain, nausea, rash, palpitations or vomiting Review of Systems Const: Reports: fatigue and malaise; Denies: fever(s) or chills Eyes: Denies: change in vision ENMT: Denies: mouth pain Card: Denies: chest pain or palpitations Resp: Reports: dyspnea and non-productive cough GI: Denies: abdominal pain, nausea, vomiting or diarrhea : Denies: dysuria Musc: Denies: extremity pain Skin/Breast: Denies: rash or new lesions Neuro: Denies: weakness in extremities Psych: Reports: other (Normal mood) Mich/Lymph: Denies: easy bruising PFSH ED PFSH: Medical History Fgshh-[id number] deficiency Anticoagulation adequate Pradaxa Chronic back pain Cigarette smoker COPD (chronic obstructive pulmonary disease) Hx of atrial flutter Hyperlipidemia Insomnia Other schizophrenia 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 Surgical History S/P thyroidectomy Family History Other Cancer Social History Smoking and tobacco status: former smoker Quit status (tobacco): not considering quitting Second hand smoke exposure: No Smoking risk assessment/counseling performed?: Yes Alcohol intake: former Adopted: No Caregiver/support person: Yes Lives independently: Yes Household members: none Housing: Apartment Marital status: Single Number of children: 0 Number of grandchildren: 0 Highest education level completed: Some College, No Degree service: Yes Current occupational status: disabled Pets and animals: No History of recent travel: No Leisure activites: music and other Leisure activities details: watch news Current gender identity: Male Nenita/Rastafarian: Mandaeism Special nenita needs: No Agree to transfusion: Yes Financial difficulty paying for basics: Not Very Hard Physical Exam Const: COMMON NORMALS: alert HENMT: COMMON NORMALS: atraumatic HEAD & SCALP: atraumatic MOUTH: moist mucous membranes not abnormal Eye: COMMON NORMALS: EOMs intact bilaterally and conjunctivae normal CONJUNCTIVA: Yes conjunctivae normal Neck/C-Spine: COMMON NORMALS: full ROM and supple Resp: COMMON NORMALS: normal respiratory effort OTHER: + Wheezing bilaterally with fine crackles +mild increased work of breathing Cardio: COMMON NORMALS: regular rate RATE: regular rate GI: COMMON NORMALS: Soft to palpation and non-tender PALPATION: Yes Soft to palpation Extremity: COMMON NORMALS: full ROM OTHER: 3+ edeam in the lower extrmeities b/l Neuro: SENSORIUM/ORIENTATION: Yes alert MOTOR EXAM: No Abnormal motor strength present and Other motor observations present (no focal motor deficits) Psych: COMMON NORMALS: speech normal SPEECH: Yes normal speech MOOD & AFFECT: Yes euthymic mood Course Vital Signs: Vital signs: Vital Signs Temperature 97.5 F L 03/05/22 11:11 Pulse Rate 96 03/05/22 11:11 Respiratory Rate 17 03/05/22 11:11 Blood Pressure 98/59 03/05/22 11:11 Pulse Oximetry 93 03/05/22 11:11 [facility] - General Adult Medical Decision Making 66-year-old male with history of bilateral lung cancer on chemoradiation treatment followed by Dr. Melchor, COPD on 3 L oxygen at baseline presenting to the emergency room with concerns of dyspnea and wheezing x3 days. On exam, patient is noted to have a mild increased work of breathing with wheezes bilaterally and fine crackles. Patient is noted to have 3+ edema in the lower extremities. Will be admitted for possible PNA and hyponatriemia. Lab Data : 03/04/22 04:19 03/05/22 11:30 Radiology Impressions Chest X-Ray 03/02/22 13:09 IMPRESSION: Left upper lobe pneumonia and/or atelectasis. Chest CT 03/02/22 13:47 IMPRESSION: 1. Quality of this examination is significantly limited by breathing motion artifact. 2. Large soft tissue mass LEFT upper lobe with invasion into the mediastinum and adjacent probable lymphangitic spread is reidentified measures 7.1 x 7.6 cm. Improved postobstructive atelectasis in the LEFT upper lobe. The mass is probably increased in size. 3. Encasement and partial obstruction of the LEFT pulmonary artery and bronchial tree at the hilum. 4. Severe emphysema. 5. Small bilateral pleural effusions have slightly increased. 6. Extensive soft tissue anasarca. Head CT 03/02/22 16:53 IMPRESSION: 1. Negative for acute intracranial abnormality. 2. No change from comparison. Laboratory Results WBC 24.7 10^3/uL (4.0-10.0) H 03/02/22 13:25 RBC 3.36 10^6/uL (4.1-5.3) L 03/02/22 13:25 Hgb 9.7 g/dL (11.7-16.6) L 03/02/22 13:25 Hct 27.4 % (42.0-52.0) L 03/02/22 13:25 MCV 81.5 fl (80-94) 03/02/22 13:25 MCH 28.9 pg (28.0-34.0) 03/02/22 13:25 MCHC 35.4 g/dL (30.0-36.0) 03/02/22 13:25 RDW 13.9 % (12.1-15.1) 03/02/22 13:25 Plt Count 332 10^3/cmm (130-400) 03/02/22 13:25 MPV 8.8 fL (7.4-10.4) 03/02/22 13:25 Neut % (Auto) 91.4 % 03/02/22 13:25 Lymph % (Auto) 2.3 % 03/02/22 13:25 [place] % (Auto) 5.3 % 03/02/22 13:25 Eos % (Auto) 0.0 % 03/02/22 13:25 Baso % (Auto) 0.2 % 03/02/22 13:25 Neut # (Auto) 22.61 10^3/uL (1.8-7.7) H 03/02/22 13:25 Lymph # (Auto) 0.6 10^3/uL (0.8-4.8) L 03/02/22 13:25 [place] # (Auto) 1.3 10^3/uL (0.2-0.9) H 03/02/22 13:25 Eos # (Auto) 0.0 10^3/uL (0.0-0.8) 03/02/22 13:25 Baso # (Auto) 0.1 10^3/uL (0.0-0.1) 03/02/22 13:25 Nucleated RBC % (auto) 0 % 03/02/22 13:25 Nucleated RBCs # 0.0 /100WBC 03/02/22 13:25 Sodium 115 mmol/L (136-145) L* 03/02/22 13:25 Potassium 4.3 mmol/L (3.5-5.1) 03/02/22 13:25 Chloride 81 mmol/L (98-107) L 03/02/22 13:25 Carbon Dioxide 24 mmol/L (22-29) 03/02/22 13:25 Anion Gap 14.3 (5-19) 03/02/22 13:25 BUN 9 mg/dL (8-23) 03/02/22 13:25 Creatinine 0.8 mg/dL (0.7-1.2) 03/02/22 13:25 GFR Calculation 96.1 mL/min (90-130) 03/02/22 13:25 Glucose 89 mg/dL (65-115) 03/02/22 13:25 Calculated Osmolality 238 mOsm/kg (285-295) L 03/02/22 13:25 Calcium 8.1 mg/dL (8.5-10.5) L 03/02/22 13:25 Total Bilirubin 0.5 mg/dL (0.15-1.2) 03/02/22 13:25 AST 29 U/L (0-40) 03/02/22 13:25 ALT 33 U/L (0-41) 03/02/22 13:25 Alkaline Phosphatase 108 IU/L (40-130) 03/02/22 13:25 Troponin T Baseline 20 ng/L (0-15) H 03/02/22 13:25 NT-Pro-B Natriuret Pep 2102 pg/mL (0-125) H 03/02/22 13:25 Total Protein 6.4 g/dL (6.6-8.7) L 03/02/22 13:25 Albumin 3.2 g/dL (3.5-5.2) L 03/02/22 13:25 Globulin 3.2 g/dL (1.3-4.6) 03/02/22 13:25 Lipase 8 U/L (13-60) L 03/02/22 13:25 Influenza Type A Ag Negative (Negative) 03/02/22 13:33 Influenza Type B Ag Negative (Negative) 03/02/22 13:33 SARS-CoV-2 Ag (Rapid) Negative (Negative) 03/02/22 13:33 Imaging Data Other Imaging: Radiologist's impression: Launch?Image [id number] [id number] XRay Report Signed Patient: Bradley Edwards Unit #: [id number] : 1955 Age/Sex: 66 / M ADM Date: 03/02/22 Loc: ER Room/Bed: Attending Dr: Ordering Provider/Ordering MD: Onofre Bailey MD Date of Service: 03/02/22 Procedure(s): XR chest 1V portable [id number] Accession Number(s): [id number] Report Number: [id number] PROCEDURE INFORMATION: Exam: XR Chest Exam date and time: 03/02/2022 1:22 PM Age: 66 years old Clinical indication: Dyspnea; Patient HX: History--sob. HX of copd, lung cancer HX; Additional info: Patient has become increasingly short of breath and wheezing last 3 days TECHNIQUE: Imaging protocol: Radiologic exam of the chest. Views: 1 view. COMPARISON: [place] [id number] 02/03/2022 5:12 PM FINDINGS: Lungs: Left upper lobe airspace disease which can be due to pneumonia and/or atelectasis though there has been some interval re-aeration of the left upper lobe. Pleural spaces: Trace right pleural effusion. Heart/Mediastinum: The heart is not enlarged. The mediastinal contours are normal. Vasculature: The aorta is atherosclerotic. Bones/joints: No acute osseous abnormality. XR/XR chest 1V portable [id number] IMPRESSION: Left upper lobe pneumonia and/or atelectasis. ? Dictated By: Miky Carvajal Signed By: Miky Carvajal Signed Date/Time: 03/02/22 1338 DD/ 1322 Discharge Plan Discharge Patient Disposition: Admitted As Inpatient Admit Provider: Carl Crowe Clinical Impression: Acute dyspnea, COPD exacerbation, Hyponatremia, Pneumonia Condition: Stable Discharge Diet: Regular Discharge Activity: Resume usual activity and Increase activity as tolerated Coding Level of Care Code ED Dry Sand Molder for Chg Fwd Exam Comprehensive
[2022-03-02 13:33] LABS: Basophils # 0.1 10^3/uL (0.0-0.1); Basophils % 0.2 %; Hematocrit 27.4 % (42.0-52.0); Hemoglobin 9.7 g/dL (11.7-16.6); Lymphocytes # 0.6 10^3/uL (0.8-4.8); Lymphocytes % 2.3 %; Mean Corpuscular HGB Conc 35.4 g/dL (30.0-36.0); Mean Corpuscular Hemoglobin 28.9 pg (28.0-34.0); Mean Corpuscular Volume 81.5 fl (80-94); Mean Platelet Volume 8.8 fL (7.4-10.4); Monocytes # 1.3 10^3/uL (0.2-0.9); Monocytes % 5.3 %; Neutrophils # 22.61 10^3/uL (1.8-7.7); Neutrophils % 91.4 %; Nucleated Red Blood Cells % 0 %; Platelet Count 332 10^3/cmm (130-400); Red Blood Count 3.36 10^6/uL (4.1-5.3); Red Cell Distribution Width 13.9 % (12.1-15.1); White Blood Count 24.7 10^3/uL (4.0-10.0)
--- NOTE | 2022-03-02 13:47 | CT_ITS ---
WS: [id number] CT CHEST WITHOUT INTRAVENOUS CONTRAST HISTORY: Severe shortness of breath and cough. TECHNIQUE: Contiguous 5 mm axial imaging performed on the thorax. Coronal and sagittal reformats are submitted. All CT scans at [facility] use at least one of these dose optimization techniques: automated exposure control; mA and/or kV adjustment per patient size (includes targeted exams where dose is matched to clinical indication); or iterative reconstruction. CONTRAST: None DLP: 838.98 mGy.cm COMPARISON: 02/04/2020 Study is compromised by significant breathing artifact. Lungs and central airway: Severe pulmonary hyperinflation and centrilobular emphysema. Patient has a large known mass centered in the LEFT upper lobe invading into the mediastinum. There are several com ponents to this mass. The largest area of consolidation measures 7.1 x 7.6 cm. The postobstructive at electasis previously described has slightly improved. There is continued mild volume loss. Adjacent t o the mass extending into the LEFT upper lobe apex is interstitial thickening and stranding with nodu larity which may be lymphangitic spread of tumor. Mass extends into the mediastinum and abuts the aor ta and in the the AP window. Encasement with partial obstruction of the LEFT upper lobe bronchus and pulmonary artery. Pleura: Small bilateral pleural effusions have mildly progressed since the prior study. Heart and pericardium: Normal size heart with no pericardial effusion. Mediastinum and lizzie: No additional lymph nodes are identified. Vessels: Moderate atherosclerosis aorta. Chest wall and lower neck: Mild soft tissue anasarca. Upper abdomen: No adrenal mass. Limited visualization of the liver for hepatic metastatic disease. Th ere is mild stranding around the superior pole of each kidney. Diffuse soft tissue anasarca. Osseous structures: No destructive process. CT/CT chest wo con [id number] IMPRESSION: 1. Quality of this examination is significantly limited by breathing motion ar tifact. 2. Large soft tissue mass LEFT upper lobe with invasion into the mediastinum a nd adjacent probable lymphangitic spread is reidentified measures 7.1 x 7.6 cm. Improved postobstructive atelectasis in the LEFT upper lobe. The mass is proba shlomo increased in size. 3. Encasement and partial obstruction of the LEFT pulmonary artery and bronchi al tree at the hilum. 4. Severe emphysema. 5. Small bilateral pleural effusions have slightly increased. 6. Extensive soft tissue anasarca.
[2022-03-02] MEDS: ipratropium-albuterol 3 mL Neb INHALATION ×4 (13:49→20:54)
[2022-03-02 13:53] LABS: Troponin(5th) Baseline 20 ng/L (0-15)
[2022-03-02] MEDS: cefepime 1,000 MG in sodium chloride 0.9% (plus) 50 ML 100 MG IV (13:56)
[2022-03-02 14:08] LABS: Alanine Aminotransferase 33 U/L (0-41); Albumin Level 3.2 g/dL (3.5-5.2); Alkaline Phosphatase 108 IU/L (40-130); Anion Gap 14.3 (5-19); Aspartate Amino Transferase 29 U/L (0-40); Blood Urea Nitrogen 9 mg/dL (8-23); Calcium 8.1 mg/dL (8.5-10.5); Carbon Dioxide 24 mmol/L (22-29); Chloride 81 mmol/L (98-107); Globulin 3.2 g/dL (1.3-4.6); Glomerular Filtration Rate 96.1 mL/min (90-130); Glucose 89 mg/dL (65-115); Lipase 8 U/L (13-60); NT Pro B Type Natriuretic Pept 2102 pg/mL (0-125); Osmolality Calculated 238 mOsm/kg (285-295); Potassium 4.3 mmol/L (3.5-5.1); Total Bilirubin 0.5 mg/dL (0.15-1.2); Total Protein 6.4 g/dL (6.6-8.7)
[2022-03-02 14:09] LABS: Sodium 115 mmol/L (136-145)
[2022-03-02] MEDS: FUROsemide 10 mg/mL SDV 4mL 40 MG IVP (14:14)
[2022-03-02 14:20] LABS: Influenza A by IFA Negative (Negative); Influenza B by IFA Negative (Negative); SARS Covid-2 Antigen Negative (Negative)
[2022-03-02] MEDS: vancomycin 1,000 MG in sodium chloride 0.9% 250 ML 250 MG IV (14:20)
--- NOTE | 2022-03-02 14:38 | PC.PHAR ---
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 THEY DONT HAVE AN ORDER FOR FLUPHENAZINE DECANOATE 25MG/ML GIVE 75ML Q30D RX WRTITEN ON 02/16/22 FROM -
--- NOTE | 2022-03-02 15:09 | ECG_ITS ---
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 Measurements Intervals [place] Rate: 91 P: -88 [place]: 210 QRS: 89 QRSD: 110 T: 46 QT: 385 QTc: 476 Interpretive Statements ATRIAL FLUTTER POSSIBLE INFERIOR MYOCARDIAL INFARCTION , PROBABLY OLD [30 ms Q WAVE IN II/aVF] Compared to ECG 03/02/2022 13:21:15 Myocardial infarct finding now present ST (T wave) deviation no longer present Electronically Signed On 03-02-2022 17:33:16 CDT by Carlos Troy M.D. [email or web address] county hospitalWeMedia Alliancekettering health [facility].[address]/store/[id number]
--- NOTE | 2022-03-02 15:17 | PC.NURSE ---
Attempted to call report, they will have the nurse call me back
[2022-03-02 16:24] LABS: Troponin 5 2HR 16.21 ng/L (0-15)
[2022-03-02 16:26] LABS: Troponin 5 2HR Delta -3.79 ABS# (0-10)
[2022-03-02 16:29] LABS: Iron 23 ug/dL (59-158); Percent Saturation 12.4 % (20-50); Total Iron Binding Capacity 185 mcg/dl; Unsaturated Iron Binding 162 ug/dL (112-347)
--- NOTE | 2022-03-02 16:30 | P.HP_ITS ---
Providers/Chief Complaint Admitting Physician: Carl Crowe MD Primary Care Provider: Luis Alberto Brooke MD Chief Complaint: SOB History of Present Illness Most of the history taken through my conversation with [facility] staff [facility] and chart review. Bradley Edwards is a 66 year old male with past medical history of schizophrenia, COPD, atrial flutter, alpha-1 antitrypsin deficiency disorder, recent diagnosis of left upper lobe squamous cell carcinoma on chronic anticoagulation with Pradaxa, chronic smoker, chronic edema of lower limb who last saw Dr. Melchor on February 25, 2022 and was referred to pulmonology for possible bronchoscopy and evacuation of mucous plug, port placement and possible treatment with radiation oncology. As per recommendation with the [facility] patient has been getting more more altered for the last 1 week with complaining of difficulty in urination and sitting on the commode for 2 to 3 hours along with drinking 5-6 pitcher of water daily because he was not able to urinate on commode and then having frequent episodes of bedwetting. Patient recently started complaining of increased shortness of breath due to his oxygen supplementation remained at 3 L along with him developing worsening lower limb swellings going up to his mid thigh. Because of all the above he was sent to the ER. In the ER patient was awake and alert sitting up in bed. He states he came to hospital to get all the answers of why he is so short of breath. When asked if patient has any history of lung cancer he states he is not aware of the same at first but later states now he recollects that he was recently told that he has lung cancer . Patient denied any diarrhea, dizziness, nausea, vomiting, headache. Patient states when he is not able to make his own medical decisions he would want his zeoxbqr-zv-xcy Mr. Baldwin and his father who lives up in [place] to make all the decisions. On conversation with Mr. Baldwin on phone number [phone] he tells me that patient in the past had told him to make sure that he remains comfortable. He states patient recently lost his sister around 3 months ago because of lung cancer and they both had stated at that time that they would not want any treatment for cancer going forward. Mr. Baldwin states that patient told him specifically that his goals is to make sure he never gets intubated or have chest compressions but is okay with oxygen and would not want any extensive treatment for the cancer. Review of Systems General: Reports: ROS unobtainable due to mental status Medications/Allergies Home Medications Medication Instructions Recorded Confirmed Last Taken Type albuterol sulfate 90 mcg/actuation 4 puff INHALATION Q6H PRN 09/13/19 03/02/22 08/28/20 06:15 History aerosol inhaler (Ventolin HFA) atorvastatin 20 mg tablet 20 mg PO QPM 09/13/19 03/02/22 08/27/20 History azelastine 137 mcg (0.1 %) nasal 2 spray INTRANASAL BID 09/13/19 03/02/22 08/27/20 History spray aerosol dabigatran etexilate 150 mg 150 mg PO BID 09/13/19 03/02/22 08/25/20 09:00 History capsule (Pradaxa) docusate sodium 100 mg capsule 100 mg PO DAILY 09/13/19 03/02/22 08/27/20 History (Colace) umeclidinium 62.5 mcg-vilanterol 1 inh INHALATION Q24H 09/13/19 03/02/22 08/27/20 History 25 mcg/actuation powdr for inhalation (Anoro Ellipta) cetirizine 10 mg tablet (Zyrtec) 10 mg PO DAILY tab 08/19/20 03/02/22 08/27/20 History acetaminophen 500 mg tablet 1,000 mg PO Q6H PRN 02/03/22 03/02/22 Unknown History clonazepam 1 mg tablet 1 mg PO DAILY 02/03/22 03/02/22 Unknown History multivitamin-ferrous 1 tab PO DAILY 02/03/22 03/02/22 Unknown History fumarate-folic acid 18 mg-400 mcg tablet (Certavite-Antioxidant) amiodarone 200 mg tablet (Pacerone) 400 mg PO BID 03/02/22 03/02/22 Unknown History lorazepam 2 mg/mL oral concentrate See Rx Instructions .ROUTE .COMPLEX 03/02/22 03/02/22 Unknown History metoprolol tartrate 25 mg tablet 25 mg PO BID 03/02/22 03/02/22 Unknown History morphine concentrate 100 mg/5 mL See Rx Instructions .ROUTE .COMPLEX 03/02/22 03/02/22 Unknown History (20 mg/mL) oral solution swugubmu-kci-xpmjm acid 300 1 tab PO DAILY 03/02/22 03/02/22 Unknown History mcg-lycopene 600 mcg-lutein 300 mcg tablet (Centrnikolai Howe Men) potassium gluconate 595 mg (99 mg) 595 mg PO DAILY 03/02/22 03/02/22 Unknown History tablet tamsulosin 0.4 mg capsule (Flomax) 0.4 mg PO BEDTIME 03/02/22 03/02/22 Unknown History trazodone 150 mg tablet 150 mg PO BEDTIME 03/02/22 03/02/22 Unknown History Allergies Allergy/AdvReac Type Severity Reaction Status Date / Time Androgenic Anabolic Steroid Allergy Unknown ALGY-Anaphy Verified 02/25/22 15:36 laxis diphenhydramine Allergy couldnt Verified 02/25/22 15:36 [From Benadryl] breath through nose fexofenadine [From Pamela] Allergy Unknown Verified 02/25/22 15:36 fluticasone [From Flonase] Allergy ALGY-Difficulty Verified 02/25/22 15:36 Breathing ibuprofen [From Motrin] Allergy Unknown Verified 02/25/22 15:36 shellfish derived Allergy swelling Verified 02/25/22 15:36 PFSH Acute PFSH: Medical History (Updated 03/02/22 @ 16:42 by Carl Crowe MD) Uofje-8-qjcznahhlmi deficiency Anticoagulation adequate Pradaxa Chronic back pain Cigarette smoker COPD (chronic obstructive pulmonary disease) Hx of atrial flutter Hyperlipidemia Insomnia Other schizophrenia 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 Surgical History S/P thyroidectomy Family History Other Cancer Social History Smoking and tobacco status: former smoker Quit status (tobacco): not considering quitting Second hand smoke exposure: No Smoking risk assessment/counseling performed?: Yes Alcohol intake: former Adopted: No Caregiver/support person: Yes Lives independently: Yes Household members: none Housing: Apartment Marital status: Single Number of children: 0 Number of grandchildren: 0 Highest education level completed: Some College, No Degree service: Yes Current occupational status: disabled Pets and animals: No History of recent travel: No Leisure activites: music and other Leisure activities details: watch news Current gender identity: Male Nenita/Shinto: Voodoo Special nenita needs: No Agree to transfusion: Yes Financial difficulty paying for basics: Not Very Hard Vitals/I&O/Wt Last Vital Signs Temp 97.9 F 03/02/22 13:15 Pulse 77 03/02/22 16:20 Resp 20 H 03/02/22 16:20 BP 150/76 03/02/22 16:20 Pulse Ox 95 03/02/22 16:20 03/02/22 03/02/22 03/02/22 06:59 14:59 22:59 Intake Total 50 / 50 250 / 300 Balance 50 / 50 250 / 300 Physical Exam Narrative: General: No acute distress, confused, slow to respond, AO x1-2, oriented to self HEENT: PERRLA, pupils bilaterally equal and reactive Chest: Bilateral bronchial breath sounds, decreased air entry left upper and middle zone, coarse crackles present left upper and middle zone, rhonchi all over the lung barry CVS: S1-S2 regular, no murmurs, no tachycardia, no gallops, no rubs Abdomen: Soft, nontender, no organomegaly, bowel sounds present Neuro: No focal deficits, no facial deformity, power 5/5 in all limbs. Extremities: Bilateral lower limb edema up to mid thigh 2+ Urinary Catheter Management: 2-way Urethral: Cath Placed During This Visit: yes Urinary Catheter Date of Insertion: 03/02/22 Urinary Catheter Time of Insertion: 14:05 Data : 03/02/22 13:25 03/02/22 13:25 A&P Assessment and plan (1) Altered mental status: Most likely secondary to combination of hyponatremia, chronic history of schizoaffective disorder bipolar disorder. Frequent reorientation. Status: Acute (2) Hyponatremia: Most likely a combination of SIADH along with polydipsia. Check urine lites, urine creatinine, urine eosinophils. Patient already received 40 mg of IV Lasix in the ER. Randhawa catheterization. Fluid restriction up to 1500 cc. Regular diet. Check BMP every 8 hourly. Status: Acute (3) Hypoxemia: Chronically on 3 L. Most likely secondary to combination of congestive heart failure, squamous cell lung carcinoma and COPD exacerbation. DuoNebs every 6 hour budesonide twice daily. Keep saturation over 88%. Pneumonia unlikely. CT chest. Check urine Legionella bacterial antigen, sputum culture, procalcitonin, MRSA swab. For now continue with vancomycin and Zosyn. Will de-escalate antibiotics rapidly if patient remains hemodynamically stable and afebrile within next 24 hours. 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 Followed up with Dr. Melchor on 02/25. As per patient's ofhyfup-ov-fyq he did not want any treatment regarding cancer. No DPOA paperwork in chart. We will consult case management. Status: Acute (5) COPD exacerbation: Status: Acute (6) Hx of atrial flutter: Currently rate controlled. Continue with amiodarone at 200 mg twice daily. Continue with dabigatran. Status: Acute (7) Schizoaffective disorder, bipolar type: Continue with home dose of Klonopin. Status: Chronic (8) Anticoagulation adequate: Status: Acute (9) Aydsw-6-nqvzhrflwxx deficiency: Status: Acute Plan Urinary incontinence: Presents as per staff at penitentiary. Check UA, urine culture. Rule out UTI. Randhawa catheterization for now. Most likely patient will need to be discharged on Randhawa catheter and will need to follow-up with urology as an outpatient. Case management consultation. Patient states when he is not able to make his medical decision his llklxjw-yp-xiu/Denny and his father will be the one making decisions for him. No DPOA paperwork in the chart. Mr. Baldwin states patient in past told him he does not want any treatment for cancer and would want to go hospice though as per the nursing to SNF patient had refused hospice care. Patient currently AO x1-2 secondary to hyponatremia and possibly secondary to michele ferreira schizoaffective bipolar disorder. Analgesia: Tylenol as needed Glycemic control: Not needed Nutrition: Regular diet CODE STATUS: DNR/DNI as per paperwork from [facility]it[facility] and asthma conversation with patient's hijqcfc-uw-fzo Mr. Baldwin. PUD prophylaxis: Protonix DVT prophylaxis: Dabigatran will suffice as DVT prophylaxis. Discharge planning: Back to SNF once sodium levels improved. Admit to MedSur floor. 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
--- NOTE | 2022-03-02 16:33 | PC.NURSE ---
Pt is now going to Med/Surg per Dr Anton. Awaiting room again. Pt resting in bed, denies needs. 2800cc yellow urine emptied from frost bag
[2022-03-02 16:36] LABS: Procalcitonin 0.06 ng/mL (0-0.5)
[2022-03-02 16:50] LABS: Add Urine Microscopic? NO; Charge for UA Resulting for Rev
--- NOTE | 2022-03-02 16:53 | CTR_ITS ---
PROCEDURE INFORMATION: Exam: CT Head Without Contrast Exam date and time: 03/02/2022 6:37 PM Age: 66 years old Clinical indication: Altered mental status/memory loss; Additional info: AMS TECHNIQUE: Imaging protocol: Computed tomography of the head without contrast. Radiation optimization: All CT scans at this facility use at least one of these dose optimization techniques: automated exposure control; mA and/or kV adjustment per patient size (includes targeted exams where dose is matched to clinical indication); or iterative reconstruction. COMPARISON: CT head wo con* [id number] 02/03/2022 11:24 AM RADIATION DOSE METRICS: Total DLP (mGy-cm): 1085.38 FINDINGS: Brain: There is moderate cerebral atrophy. There is moderate diffuse heterogeneity of the white matter attenuation, consistent with chronic white matter ischemic changes. Negative for intracranial hemorrhage. No midline shift of the brain. Cerebral ventricles: No ventriculomegaly. Paranasal sinuses: Visualized sinuses are unremarkable. No fluid levels. Mastoid air cells: Visualized mastoid air cells are well aerated. Bones/joints: Unremarkable. No acute fracture. Soft tissues: Unremarkable. CT/CT head wo con* [id number] IMPRESSION: 1. Negative for acute intracranial abnormality. 2. No change from comparison.
[2022-03-02 17:01] LABS: Bilirubin Urine Neg (Negative); Blood Urine Neg (Negative); Glucose Urine UA Norm (Normal); Ketones Urine 1+ (Negative); Nitrate Urine Negative (Negative); Protein Urine Neg (Negative); Specific Gravity, Urine 1.015 (1.005-1.030); Urine Appearance Clear (CLEAR); Urine Color Yellow (Yellow); pH Urine 6 (5-7)
[2022-03-02 17:02] LABS: Leukocyte Esterase Urine Negative (Negative); Urobilinogen Urine Norm (Negative)
[2022-03-02 17:16] LABS: Blood Urea Nitrogen 8 mg/dL (8-23); Calcium 8.2 mg/dL (8.5-10.5); Carbon Dioxide 23 mmol/L (22-29); Chloride 81 mmol/L (98-107); Glomerular Filtration Rate 96.1 mL/min (90-130); Glucose 90 mg/dL (65-115); Osmolality Calculated 242 mOsm/kg (285-295); Thyroid Stimulating Hormone 2.79 uIU/mL (0.27-4.20); Vitamin B12 725 pg/mL (232-1245)
[2022-03-02 17:22] LABS: Sodium 117 mmol/L (136-145)
[2022-03-02] MEDS: piperacillin-tazobactam 3.375 GM in sodium chloride 0.9% (plus) 50 ML IV (17:43)
[2022-03-02] MEDS: docusate sodium 100 mg Capsule PO (17:43)
[2022-03-02] MEDS: atorvastatin 40 mg Tablet 20 MG PO (17:43)
[2022-03-02] MEDS: metoprolol tartrate 25 mg Tablet PO (17:43)
[2022-03-02] MEDS: amiodarone 200 mg Tablet PO (17:43)
[2022-03-02] MEDS: ferrous gluconate 324 mg Tablet PO (17:43)
[2022-03-02 17:52] LABS: Potassium, Radom Urine 33 mmol/L; Urine Creatinine 61 mg/dL (39-259); Urine Random Chloride 44 mmol/L; Urine Random Sodium 27 mmol/L
[2022-03-02 18:41] LABS: Eosinophil Urine No Eosinophils Seen; Urine Eosinophil Count 0 (0-0)
--- NOTE | 2022-03-02 19:09 | ECG_ITS ---
[facility] Test Date: 2022-03-02 Pat Name: Bradley Edwards Department: Room: 271 Gender: Male Radiology Technician: : 1955 Requested By: Onofre Bailey Order Number: [id number] Usman MD: Linda Duffy M.D. Measurements Intervals [place] Rate: 82 P: -89 [place]: 232 QRS: 84 QRSD: 109 T: 57 QT: 428 QTc: 500 Interpretive Statements ECTOPIC ATRIAL RHYTHM WITH FIRST DEGREE AV BLOCK MODERATE ST DEPRESSION [0.05+ mV ST DEPRESSION] PROLONGED QT INTERVAL Compared to ECG 03/02/2022 17:25:02 Ectopic atrial rhythm now present First degree AV block now present ST (T wave) deviation now present Prolonged QT interval now present Atrial flutter no longer present Myocardial infarct finding no longer present Electronically Signed On 03-03-2022 23:44:06 CDT by Linda Duffy M.D. [id number]
[2022-03-02] MEDS: tamsulosin 0.4 mg Capsule PO (20:16)
[2022-03-02] MEDS: trazodone 150 mg Tablet PO (20:16)
[2022-03-02 20:45] LABS: Anion Gap 14.3 (5-19); Blood Urea Nitrogen 8 mg/dL (8-23); Calcium 8.7 mg/dL (8.5-10.5); Carbon Dioxide 28 mmol/L (22-29); Chloride 84 mmol/L (98-107); Glomerular Filtration Rate 96.1 mL/min (90-130); Glucose 86 mg/dL (65-115); Osmolality Calculated 252 mOsm/kg (285-295); Potassium 4.3 mmol/L (3.5-5.1); Sodium 122 mmol/L (136-145)
[2022-03-02 20:49] LABS: Troponin 5 6HR 23.71 ng/L (0-15)
[2022-03-02 20:53] LABS: Troponin 5 6HR Delta 3.71 ng/L (0-12)
[2022-03-02] MEDS: budesonide 0.5 mg/2 mL Neb INHALATION (20:54)
[2022-03-02 21:16] LABS: Folate Level 17.9 ng/mL (4.5-32.2)
[2022-03-03] VITALS (17 sets, daily range): BP systolic 91–109; BP diastolic 48–61; PULSE 74–93; RESP 16–19; TEMP 36.6–36.9; O2SAT 92–96
[2022-03-03] MEDS: ipratropium-albuterol 3 mL Neb INHALATION ×4 (02:29→21:06)
[2022-03-03] MEDS: piperacillin-tazobactam 3.375 GM in sodium chloride 0.9% (plus) 50 ML IV ×3 (02:33→17:18)
[2022-03-03 05:18] LABS: Basophils % 0.2 %; Eosinophils % 0.2 %; Hematocrit 26.2 % (42.0-52.0); Hemoglobin 9.1 g/dL (11.7-16.6); Lymphocytes # 0.5 10^3/uL (0.8-4.8); Lymphocytes % 2.6 %; Mean Corpuscular HGB Conc 34.7 g/dL (30.0-36.0); Mean Corpuscular Hemoglobin 28.4 pg (28.0-34.0); Mean Corpuscular Volume 81.9 fl (80-94); Mean Platelet Volume 8.7 fL (7.4-10.4); Monocytes # 1.3 10^3/uL (0.2-0.9); Monocytes % 7.4 %; Neutrophils # 15.51 10^3/uL (1.8-7.7); Neutrophils % 88.9 %; Nucleated Red Blood Cells % 0 %; Platelet Count 319 10^3/cmm (130-400); White Blood Count 17.5 10^3/uL (4.0-10.0)
[2022-03-03 05:40] LABS: Alanine Aminotransferase 28 U/L (0-41); Albumin Level 2.9 g/dL (3.5-5.2); Alkaline Phosphatase 90 IU/L (40-130); Anion Gap 11.9 (5-19); Aspartate Amino Transferase 27 U/L (0-40); Blood Urea Nitrogen 8 mg/dL (8-23); Calcium 8.4 mg/dL (8.5-10.5); Carbon Dioxide 29 mmol/L (22-29); Chloride 88 mmol/L (98-107); Chol HDL Ratio 2.19 mg/dL (1.0-5.00); Cholesterol 92 mg/dL (0-200); Globulin 2.7 g/dL (1.3-4.6); Glomerular Filtration Rate 83.9 mL/min (90-130); Glucose 69 mg/dL (65-115); HDL Cholesterol 42 mg/dL (60-100); LDL Cholesterol Calculated 41 mg/dL (50-129); Magnesium 1.7 mg/dL (1.7-2.3); Osmolality Calculated 257 mOsm/kg (285-295); Phosphorus 3.9 mg/dL (2.5-4.5); Potassium 3.9 mmol/L (3.5-5.1); Sodium 125 mmol/L (136-145); Total Bilirubin 0.5 mg/dL (0.15-1.2); Total Protein 5.6 g/dL (6.6-8.7); Triglycerides 44 mg/dL (0-150); VLDL Cholestrol Calculation 9 mg/dL (0-30)
[2022-03-03 05:46] LABS: Estmated Average Glucose 134; Hemoglobin A1C 6.3 % (4.0-6.0)
[2022-03-03] MEDS: sodium chloride 0.9% (plus) 50 ML 12.5 ML (09:14)
[2022-03-03] MEDS: amiodarone 200 mg Tablet PO ×2 (09:15→18:11)
[2022-03-03] MEDS: metoprolol tartrate 25 mg Tablet PO ×2 (09:15→18:11)
[2022-03-03] MEDS: ferrous gluconate 324 mg Tablet PO ×2 (09:15→18:11)
[2022-03-03] MEDS: pantoprazole DR 40 mg Tablet PO (09:15)
[2022-03-03] MEDS: docusate sodium 100 mg Capsule PO ×2 (09:15→18:12)
[2022-03-03] MEDS: budesonide 0.5 mg/2 mL Neb INHALATION ×2 (10:26→21:06)
[2022-03-03] MEDS: CLONazepam 1 mg Tablet 0.5 MG PO (11:28)
[2022-03-03] MEDS: FUROsemide 40 mg Tablet PO (11:31)
--- NOTE | 2022-03-03 14:11 | PM.PN ---
Subjective Subjective: No acute events overnight. Patient has remained hemodynamically stable and afebrile. Has remained on 2 to 3 L oxygen supplementation. Did receive 1 dose of Haldol overnight for confusion. Today morning patient is awake and alert sitting up in bed off oxygen. States breathing is better but still feeling out of breath. We discussed need to remain on oxygen given history of COPD and lung cancer. Patient verbalized understanding. States he felt better after nebulization treatment and hoping to get pulmonary evaluation treatment. He is alert and oriented to self, place, reason for being in the hospital. He remembers me from seeing in the ER yesterday. Vitals/I&O/Wt Last Vital Signs Temp 97.8 F 03/03/22 11:08 Pulse 92 03/03/22 11:08 Resp 17 03/03/22 11:08 BP 91/48 03/03/22 11:08 Pulse Ox 94 03/03/22 11:08 03/02/22 03/03/22 03/03/22 22:59 06:59 14:59 Intake Total 300 / 350 300 / 650 1360 / 1360 Output Total 1200 / 1200 3800 / 5000 900 / 900 Balance -900 / -850 -3500 / -4350 460 / 460 Weight last 48 hrs Weight 82.871 kg Weight 82.372 kg Physical Exam Narrative: General: No acute distress, confused, slow to respond, AO x1-2, oriented to self HEENT: PERRLA, pupils bilaterally equal and reactive Chest: Bilateral bronchial breath sounds, decreased air entry left upper and middle zone, coarse crackles present left upper and middle zone, rhonchi all over the lung barry CVS: S1-S2 regular, no murmurs, no tachycardia, no gallops, no rubs Abdomen: Soft, nontender, no organomegaly, bowel sounds present Neuro: No focal deficits, no facial deformity, power 5/5 in all limbs. Extremities: Bilateral lower limb edema up to mid thigh 2+ Urinary Catheter Management: 2-way Urethral: Cath Placed During This Visit: yes Reason for Continuing Indwelling Catheter: Acute Urinary Retention or Obstruction Urinary Catheter Date of Insertion: 03/02/22 Urinary Catheter Time of Insertion: 14:05 Data : 03/03/22 04:52 03/03/22 04:52 Micro: Microbiology 03/02/22 14:10 Bacterial Antigens - Final Urine Kidney 03/02/22 14:10 Legionella Urinary Antigen - Final Urine Catheterized A&P Assessment and plan (1) Altered mental status: Most likely secondary to combination of hyponatremia, chronic history of schizoaffective disorder bipolar disorder. Frequent reorientation. Status: Acute (2) Hyponatremia: Sodium improving. 125 today. Baseline around 133. Most likely secondary to polydipsia. Urine lites, urine studies, serum osmolality appreciated. Strict input output charting, daily weights, Randhawa catheterization. Fluid restriction up to 1200 cc. Oral Lasix 40 mg once. Monitor BMP in evening at 6 PM. Status: Acute (3) Hypoxemia: Chronically on 3 L. Most likely secondary to combination of congestive heart failure, squamous cell lung carcinoma and COPD exacerbation. DuoNebs every 6 hour budesonide twice daily. Keep saturation over 88%. Pneumonia unlikely. CT chest appreciated. Urine Legionella, bacterial antigen, MRSA negative. Procalcitonin negative. Stop vancomycin. For now continue with Zosyn. Will de-escalate antibiotics rapidly if patient remains hemodynamically stable and afebrile within next 24 hours. 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 Followed up with Dr. Melchor on 02/25. As per patient's [id number] he did not want any treatment regarding cancer. No DPOA paperwork in chart. Status: Acute (5) COPD exacerbation: DuoNeb every 6 hour, budesonide twice daily. Keep saturation over 88%. Status: Acute (6) Hx of atrial flutter: Currently rate controlled. Continue with amiodarone at 200 mg twice daily. Continue with dabigatran. Status: Acute (7) Schizoaffective disorder, bipolar type: Continue with home dose of Klonopin. Status: Chronic (8) Anticoagulation adequate: Status: Acute (9) Ysfit-8-rupftcxeotf deficiency: Status: Acute (10) Goals of care, counseling/discussion: Status: Acute Plan Urinary incontinence: [facility]. UA negative for any sign of UTI Randhawa catheterization for now. Most likely patient will need to be discharged on Randhawa catheter and will need to follow-up with urology as an outpatient. Case management consultation. Patient states when he is not able to make his medical decision his wukcqcw-hl-vle/Denny and his father will be the one making decisions for him. No DPOA paperwork in the chart. Mr. Baldwin states patient in past told him he does not want any treatment for cancer and would want to go hospice though as per the nursing to SNF patient had refused hospice care. 03/03: Had a long goals of care discussion with patient at bedside today. Patient is more awake and alert today. Able to have complete conversation. We discussed the diagnosis of cancer. We discussed the need of chemotherapy and radiation therapy for treatment. Patient asked for possible side effects from both. We discussed possible cachexia, loss of weight, loss of failure, fatigue, possible pancytopenia. Patient states he do not want any kind of IV treatment or radiation. Patient did state that when his sister had cancer he and his sister decided not to go through treatment. He states all he wants to do is remain comfortable. We discussed the possibility of hospice. We discussed hospice would mean that he can continue on his current oral medication, goals will be to keep him comfortable. If he has any signs of infection or electrode abnormality for any acute disease he will not be brought to the hospital and we would let nature takes its own course while he is make sure to remain comfortable and that could eventually mean . Patient verbalized understanding and would want to go ahead with hospice. Case management alerted. I have been told by case management that state is seeking guardianship since the of his sister. Mr. Borrego and his office is already trying to get guardianship. Analgesia: Tylenol as needed Glycemic control: Not needed Nutrition: Regular diet CODE STATUS: DNR/DNI as per paperwork from [facility] and asthma conversation with patient's fusfrys-sy-rpg Mr. Baldwin. PUD prophylaxis: Protonix DVT prophylaxis: Dabigatran will suffice as DVT prophylaxis. Discharge planning: Back to SNF once sodium levels improved. Admit to MedSurg floor. Attestations Medical Necessity Statement*: Requires further hospitalization for management of acute hyponatremia in setting of polydipsia, while pneumonia is ruled out and goals of care discussion done and met. 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
[2022-03-03] MEDS: atorvastatin 40 mg Tablet 20 MG PO (18:11)
[2022-03-03 19:08] LABS: Anion Gap 12.8 (5-19); Blood Urea Nitrogen 11 mg/dL (8-23); Calcium 8.1 mg/dL (8.5-10.5); Carbon Dioxide 29 mmol/L (22-29); Chloride 85 mmol/L (98-107); Glomerular Filtration Rate 74.3 mL/min (90-130); Glucose 120 mg/dL (65-115); Osmolality Calculated 257 mOsm/kg (285-295); Potassium 3.8 mmol/L (3.5-5.1); Sodium 123 mmol/L (136-145)
[2022-03-03] MEDS: tamsulosin 0.4 mg Capsule PO (21:10)
[2022-03-03] MEDS: trazodone 150 mg Tablet PO (21:10)
[2022-03-04] VITALS (17 sets, daily range): BP systolic 94–114; BP diastolic 57–73; PULSE 76–97; RESP 15–20; TEMP 36.4–36.9; O2SAT 91–96
[2022-03-04] MEDS: piperacillin-tazobactam 3.375 GM in sodium chloride 0.9% (plus) 50 ML IV ×3 (03:14→17:08)
[2022-03-04] MEDS: ipratropium-albuterol 3 mL Neb INHALATION ×4 (03:54→21:32)
[2022-03-04 05:05] LABS: Basophils % 0.2 %; Eosinophils # 0.1 10^3/uL (0.0-0.8); Eosinophils % 0.6 %; Hematocrit 26.4 % (42.0-52.0); Hemoglobin 9.2 g/dL (11.7-16.6); Lymphocytes # 0.5 10^3/uL (0.8-4.8); Lymphocytes % 3.2 %; Mean Corpuscular HGB Conc 34.8 g/dL (30.0-36.0); Mean Corpuscular Hemoglobin 28.3 pg (28.0-34.0); Mean Corpuscular Volume 81.2 fl (80-94); Mean Platelet Volume 9.1 fL (7.4-10.4); Monocytes # 1.4 10^3/uL (0.2-0.9); Monocytes % 9.9 %; Neutrophils # 12.11 10^3/uL (1.8-7.7); Neutrophils % 85.5 %; Nucleated Red Blood Cells % 0 %; Platelet Count 270 10^3/cmm (130-400); Red Blood Count 3.25 10^6/uL (4.1-5.3); Red Cell Distribution Width 14.3 % (12.1-15.1); White Blood Count 14.2 10^3/uL (4.0-10.0)
[2022-03-04 05:31] LABS: Alanine Aminotransferase 28 U/L (0-41); Albumin Level 2.7 g/dL (3.5-5.2); Alkaline Phosphatase 108 IU/L (40-130); Anion Gap 10.8 (5-19); Aspartate Amino Transferase 26 U/L (0-40); Blood Urea Nitrogen 10 mg/dL (8-23); Calcium 8.1 mg/dL (8.5-10.5); Carbon Dioxide 30 mmol/L (22-29); Chloride 88 mmol/L (98-107); Globulin 2.8 g/dL (1.3-4.6); Glomerular Filtration Rate 74.3 mL/min (90-130); Glucose 93 mg/dL (65-115); Osmolality Calculated 259 mOsm/kg (285-295); Potassium 3.8 mmol/L (3.5-5.1); Sodium 125 mmol/L (136-145); Total Bilirubin 0.4 mg/dL (0.15-1.2); Total Protein 5.5 g/dL (6.6-8.7)
[2022-03-04] MEDS: budesonide 0.5 mg/2 mL Neb INHALATION ×2 (09:08→21:32)
[2022-03-04] MEDS: CLONazepam 1 mg Tablet 0.5 MG PO (09:23)
[2022-03-04] MEDS: ferrous gluconate 324 mg Tablet PO ×2 (09:23→17:10)
[2022-03-04] MEDS: docusate sodium 100 mg Capsule PO ×2 (09:25→17:10)
[2022-03-04] MEDS: metoprolol tartrate 25 mg Tablet PO ×2 (09:25→17:11)
[2022-03-04] MEDS: pantoprazole DR 40 mg Tablet PO (09:26)
[2022-03-04] MEDS: amiodarone 200 mg Tablet PO ×2 (09:27→17:10)
[2022-03-04] MEDS: sodium chloride 1 gm Tablet PO ×2 (11:15→17:10)
--- NOTE | 2022-03-04 13:44 | PM.PN ---
Subjective Subjective: No acute events overnight. Patient denies any nausea, vomiting, headache. Laying comfortably in bed. Awake and alert. On entering to the room asking when can hospice team see him. He states he is ready for hospice. Denies any new complaints or chest pain or difficulty in breathing. Documentation of over 4 L of oral intake yesterday and urine output of more than 5 L. Vitals/I&O/Wt Last Vital Signs Temp 97.8 F 03/04/22 11:56 Pulse 96 03/04/22 11:56 Resp 16 03/04/22 11:56 BP 102/67 03/04/22 11:56 Pulse Ox 91 03/04/22 11:56 03/03/22 03/04/22 03/04/22 22:59 06:59 14:59 Intake Total 1290 / 2750 1500 / 4250 460 / 460 Output Total 1300 / 2200 3200 / 5400 825 / 825 Balance -10 / 550 -1700 / -1150 -365 / -365 Weight last 48 hrs Weight 84.187 kg Weight 82.871 kg Weight 82.372 kg Physical Exam Narrative: General: No acute distress, confused, slow to respond, AO x2-3. HEENT: PERRLA, pupils bilaterally equal and reactive Chest: Bilateral bronchial breath sounds, decreased air entry left upper and middle zone, coarse crackles present left upper and middle zone, rhonchi all over the lung barry CVS: S1-S2 regular, no murmurs, no tachycardia, no gallops, no rubs Abdomen: Soft, nontender, no organomegaly, bowel sounds present Neuro: No focal deficits, no facial deformity, power 5/5 in all limbs. Extremities: Bilateral lower limb edema up to mid thigh 2+ Urinary Catheter Management: 2-way Urethral: Cath Placed During This Visit: yes Reason for Continuing Indwelling Catheter: Acute Urinary Retention or Obstruction Urinary Catheter Date of Insertion: 03/02/22 Urinary Catheter Time of Insertion: 14:05 Data : 03/04/22 04:19 03/04/22 04:19 Micro: Microbiology 03/02/22 14:10 Bacterial Antigens - Final Urine Kidney A&P Assessment and plan (1) Altered mental status: Most likely secondary to combination of hyponatremia, chronic history of schizoaffective disorder bipolar disorder. Frequent reorientation. Status: Acute (2) Hyponatremia: Sodium stable. Baseline seems to be 1 29-1 31. Most likely secondary to polydipsia. Urine lites, urine studies, serum osmolality appreciated. Strict input output charting, daily weights, Randhawa catheterization. Fluid restriction up to 1200 cc. Oral Lasix 40 mg once. Monitor BMP in evening at 6 PM. Status: Acute (3) Hypoxemia: Chronically on 3 L. Most likely secondary to combination of congestive heart failure, squamous cell lung carcinoma and COPD exacerbation. DuoNebs every 6 hour budesonide twice daily. Keep saturation over 88%. Pneumonia unlikely. CT chest appreciated. Urine Legionella, bacterial antigen, MRSA negative. Procalcitonin negative. Stop vancomycin. For now continue with Zosyn. Will de-escalate antibiotics rapidly if patient remains hemodynamically stable and afebrile within next 24 hours. 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 Followed up with Dr. Melchor on 02/25. As per patient's hnsgzfs-vu-vof he did not want any treatment regarding cancer. No DPOA paperwork in chart. Status: Acute (5) COPD exacerbation: DuoNeb every 6 hour, budesonide twice daily. Keep saturation over 88%. Status: Acute (6) Hx of atrial flutter: Currently rate controlled. Continue with amiodarone at 200 mg twice daily. Continue with dabigatran. Status: Acute (7) Schizoaffective disorder, bipolar type: Continue with home dose of Klonopin. Status: Chronic (8) Anticoagulation adequate: Status: Acute (9) Tyoky-8-ohlglltwpji deficiency: Status: Acute (10) Goals of care, counseling/discussion: Status: Acute Plan Urinary incontinence: Presents as per staff at [facility]. UA negative for any sign of UTI Randhawa catheterization for now. Most likely patient will need to be discharged on Randhawa catheter and will need to follow-up with urology as an outpatient. Case management consultation. Patient states when he is not able to make his medical decision his mkrazqn-[id number]/Denny and his father will be the one making decisions for him. No DPOA paperwork in the chart. Mr. Baldwin states patient in past told him he does not want any treatment for cancer and would want to go hospice though as per the nursing to [facility] patient had refused hospice care. 03/03: Had a long goals of care discussion with patient at bedside today. Patient is more awake and alert today. Able to have complete conversation. We discussed the diagnosis of cancer. We discussed the need of chemotherapy and radiation therapy for treatment. Patient asked for possible side effects from both. We discussed possible cachexia, loss of weight, loss of failure, fatigue, possible pancytopenia. Patient states he do not want any kind of IV treatment or radiation. Patient did state that when his sister had cancer he and his sister decided not to go through treatment. He states all he wants to do is remain comfortable. We discussed the possibility of hospice. We discussed hospice would mean that he can continue on his current oral medication, goals will be to keep him comfortable. If he has any signs of infection or electrode abnormality for any acute disease he will not be brought to the hospital and we would let nature takes its own course while he is make sure to remain comfortable and that could eventually mean . Patient verbalized understanding and would want to go ahead with hospice. Case management alerted. I have been told by case management that state is seeking guardianship since the of his sister. Mr. Borrego and his office is already trying to get guardianship. Analgesia: Tylenol as needed Glycemic control: Not needed Nutrition: Regular diet CODE STATUS: DNR/DNI as per paperwork from [facility] and asthma conversation with patient's udbiyft-zv-ovo Mr. Baldwin. PUD prophylaxis: Protonix DVT prophylaxis: Dabigatran will suffice as DVT prophylaxis. Discharge planning: Back to SNF once sodium levels improved. Continue with care at [facility] floor. Plan for the day: Fluid restriction up to 1200 cc. Oral Lasix 40 mg once. Replete potassium. Awaiting hospice. Start on oral salt tablets 1 g twice daily. For now repeat BMP daily. 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
[2022-03-04] MEDS: potassium chloride ER 20 mEq Tablet 40 MEQ PO (14:50)
[2022-03-04] MEDS: FUROsemide 40 mg Tablet 20 MG PO (14:50)
[2022-03-04] MEDS: atorvastatin 40 mg Tablet 20 MG PO (17:10)
[2022-03-04] MEDS: tamsulosin 0.4 mg Capsule PO (21:43)
[2022-03-04] MEDS: trazodone 150 mg Tablet PO (21:43)
[2022-03-05] VITALS (7 sets, daily range): BP systolic 94–126; BP diastolic 58–75; PULSE 78–96; RESP 15–20; TEMP 36.4–36.9; O2SAT 92–97
[2022-03-05] MEDS: piperacillin-tazobactam 3.375 GM in sodium chloride 0.9% (plus) 50 ML IV ×2 (02:16→08:19)
[2022-03-05] MEDS: ipratropium-albuterol 3 mL Neb INHALATION ×2 (03:47→09:04)
[2022-03-05] MEDS: ferrous gluconate 324 mg Tablet PO (08:20)
[2022-03-05] MEDS: CLONazepam 1 mg Tablet 0.5 MG PO (08:20)
[2022-03-05] MEDS: sodium chloride 1 gm Tablet PO (08:20)
[2022-03-05] MEDS: docusate sodium 100 mg Capsule PO (08:20)
[2022-03-05] MEDS: metoprolol tartrate 25 mg Tablet PO (08:20)
[2022-03-05] MEDS: pantoprazole DR 40 mg Tablet PO (08:21)
[2022-03-05] MEDS: amiodarone 200 mg Tablet PO (08:21)
[2022-03-05] MEDS: budesonide 0.5 mg/2 mL Neb INHALATION (09:04)
--- NOTE | 2022-03-05 12:08 | P.DS_ITS ---
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 Bradley Edwards is a 66 year old male with past medical history of schizophrenia, COPD, atrial flutter, alpha-1 antitrypsin deficiency disorder, recent diagnosis of left upper lobe squamous cell carcinoma on chronic anticoagulation with Pradaxa, chronic smoker, chronic edema of lower limb who last saw Dr. Melchor on February 25, 2022 and was referred to pulmonology for possible bronchoscopy and evacuation of mucous plug, port placement and possible treatment with radiation oncology. As per recommendation with the skilled nursing patient has been getting more more altered for the last 1 week with complaining of difficulty in urination and sitting on the commode for 2 to 3 hours along with drinking 5-6 pitcher of water daily because he was not able to urinate on commode and then having frequent episodes of bedwetting.? Patient recently started complaining of increased shortness of breath due to his oxygen supplementation remained at 3 L along with him developing worsening lower limb swellings going up to his mid thigh.? Because of all the above he was sent to the ER. In the ER patient was awake and alert sitting up in bed.? He states he came to hospital to get all the answers of why he is so short of breath.? When asked if patient has any history of lung cancer he states he is not aware of the same at first but later states now he recollects that he was recently told that he has lung cancer . Patient denied any diarrhea, dizziness, nausea, vomiting, headache. Patient states when he is not able to make his own medical decisions he would want his [id number] Mr. Baldwin and his father who lives up in [place] to make all the decisions. On conversation with Mr. Baldwin on phone number? [phone] he tells me that patient in the past had told him to make sure that he remains comfortable.? He states patient recently lost his sister around 3 months ago because of lung cancer and they both had stated at that time that they would not want any treatment for cancer going forward.? Mr. Baldwin states that patient told him specifically that his goals is to make sure he never gets intubated or have chest compressions but is okay with oxygen and would not want any extensive treatment for the cancer. Patient was admitted to hospital for further evaluation and management along with goals of care discussions. On admission patient was in altered mental status secondary to combination of hyponatremia, chronic history of schizoaffective bipolar disorder. 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 He was put on fluid restriction along with IV Lasix. He responded well to the treatment and sodium level has been improving back to his baseline of 1 28-1 32. His mentation also improved and came back to his baseline. Multiple goals of care discussions were done with patient and patient's family. Once patient was more alert and back to his baseline mentation goals of care were discussed. We discussed the diagnosis of cancer.? We discussed the need of chemotherapy and radiation therapy for treatment.? Patient asked for possible side effects from both.? We discussed possible cachexia, loss of weight, loss of failure, fatigue, possible pancytopenia.? Patient states he do not want any kind of IV treatment or radiation.? Patient did state that when his sister had cancer he and his sister decided not to go through treatment.? He states all he wants to do is remain comfortable. We discussed the possibility of hospice.? We discussed hospice would mean that he can continue on his current oral medication, goals will be to keep him comfortable.? If he has any signs of infection or electrode abnormality for any acute disease he will not be brought to the hospital and we would let nature takes its own course while he is make sure to remain comfortable and that could eventually mean .? Patient verbalized understanding and would want to go ahead with hospice. Unfortunately, hospice could not be set up as patient is still undergoing set up of state appointed guardianship and hospice team could not sign him up because of the same reason. State guardianship is being appointed because of poor baseline mentation secondary to baseline schizophrenia. Physical Exam Narrative: General: No acute distress, confused, slow to respond, AO x2-3. HEENT: PERRLA, pupils bilaterally equal and reactive Chest: Bilateral bronchial breath sounds, decreased air entry left upper and middle zone, coarse crackles present left upper and middle zone, rhonchi all over the lung barry CVS: S1-S2 regular, no murmurs, no tachycardia, no gallops, no rubs Abdomen: Soft, nontender, no organomegaly, bowel sounds present Neuro: No focal deficits, no facial deformity, power 5/5 in all limbs. Extremities: Bilateral lower limb edema up to mid thigh 2+ Urinary Catheter Management: 2-way Urethral: Cath Placed During This Visit: yes Reason for Continuing Indwelling Catheter: Acute Urinary Retention or Obstruction Urinary Catheter Date of Insertion: 03/02/22 Urinary Catheter Time of Insertion: 14:05 Discharge Data Studies Completed and Pending Completed Studies During Hospitalization Category Date Time Status CT chest wo con [id number] Urgent Cat Scan 03/02/22 13:[address] head wo con* [id number] Routine Cat Scan 03/02/22 16:53 Completed XR chest 1V portable [id number] Stat Exams 03/02/22 13:09 Completed Pending at discharge Category Date Time Status CMP [Comprehensive Metabolic Panel] Routine Lab 03/05/22 11:30 Received Radiology Impressions Chest X-Ray 03/02/22 13:09 IMPRESSION: Left upper lobe pneumonia and/or atelectasis. Chest CT 03/02/22 13:47 IMPRESSION: 1. Quality of this examination is significantly limited by breathing motion artifact. 2. Large soft tissue mass LEFT upper lobe with invasion into the mediastinum and adjacent probable lymphangitic spread is reidentified measures 7.1 x 7.6 cm. Improved postobstructive atelectasis in the LEFT upper lobe. The mass is probably increased in size. 3. Encasement and partial obstruction of the LEFT pulmonary artery and bronchial tree at the hilum. 4. Severe emphysema. 5. Small bilateral pleural effusions have slightly increased. 6. Extensive soft tissue anasarca. Head CT 03/02/22 16:53 IMPRESSION: 1. Negative for acute intracranial abnormality. 2. No change from comparison. Microbiology 03/02/22 14:10 Urine Kidney Bacterial Antigens - Final 03/02/22 14:10 Urine Catheterized Legionella Urinary Antigen - Final Laboratory Results WBC 14.2 10^3/uL (4.0-10.0) H 03/04/22 04:19 RBC 3.25 10^6/uL (4.1-5.3) L 03/04/22 04:19 Hgb 9.2 g/dL (11.7-16.6) L 03/04/22 04:19 Hct 26.4 % (42.0-52.0) L 03/04/22 04:19 MCV 81.2 fl (80-94) 03/04/22 04:19 MCH 28.3 pg (28.0-34.0) 03/04/22 04:19 MCHC 34.8 g/dL (30.0-36.0) 03/04/22 04:19 RDW 14.3 % (12.1-15.1) 03/04/22 04:19 Plt Count 270 10^3/cmm (130-400) 03/04/22 04:19 MPV 9.1 fL (7.4-10.4) 03/04/22 04:19 Neut % (Auto) 85.5 % 03/04/22 04:19 Lymph % (Auto) 3.2 % 03/04/22 04:19 [place] % (Auto) 9.9 % 03/04/22 04:19 Eos % (Auto) 0.6 % 03/04/22 04:19 Baso % (Auto) 0.2 % 03/04/22 04:19 Neut # (Auto) 12.11 10^3/uL (1.8-7.7) H 03/04/22 04:19 Lymph # (Auto) 0.5 10^3/uL (0.8-4.8) L 03/04/22 04:19 [place] # (Auto) 1.4 10^3/uL (0.2-0.9) H 03/04/22 04:19 Eos # (Auto) 0.1 10^3/uL (0.0-0.8) 03/04/22 04:19 Baso # (Auto) 0.0 10^3/uL (0.0-0.1) 03/04/22 04:19 Nucleated RBC % (auto) 0 % 03/04/22 04:19 Nucleated RBCs # 0.0 /100WBC 03/04/22 04:19 Sodium 125 mmol/L (136-145) L 03/04/22 04:19 Potassium 3.8 mmol/L (3.5-5.1) 03/04/22 04:19 Chloride 88 mmol/L (98-107) L 03/04/22 04:19 Carbon Dioxide 30 mmol/L (22-29) H 03/04/22 04:19 Anion Gap 10.8 (5-19) 03/04/22 04:19 BUN 10 mg/dL (8-23) 03/04/22 04:19 Creatinine 1.0 mg/dL (0.7-1.2) 03/04/22 04:19 GFR Calculation 74.3 mL/min (90-130) L 03/04/22 04:19 Glucose 93 mg/dL (65-115) 03/04/22 04:19 Estimat Average Glucose 134 03/03/22 04:52 Hemoglobin A1c 6.3 % (4.0-6.0) H 03/03/22 04:52 Calculated Osmolality 259 mOsm/kg (285-295) L 03/04/22 04:19 Calcium 8.1 mg/dL (8.5-10.5) L 03/04/22 04:19 Phosphorus 3.9 mg/dL (2.5-4.5) 03/03/22 04:52 Magnesium 1.7 mg/dL (1.7-2.3) 03/03/22 04:52 Iron 23 ug/dL (59-158) L 03/02/22 15:41 TIBC 185 mcg/dl 03/02/22 15:41 % Saturation 12.4 % (20-50) L 03/02/22 15:41 Unsat Iron Binding 162 ug/dL (112-347) 03/02/22 15:41 Total Bilirubin 0.4 mg/dL (0.15-1.2) 03/04/22 04:19 AST 26 U/L (0-40) 03/04/22 04:19 ALT 28 U/L (0-41) 03/04/22 04:19 Alkaline Phosphatase 108 IU/L (40-130) 03/04/22 04:19 Troponin T Baseline 20 ng/L (0-15) H 03/02/22 13:25 Troponin T 120 Minute 16.21 ng/L (0-15) H 03/02/22 15:41 Delta Troponin T -3.79 ABS# (0-10) L 03/02/22 15:41 Troponin T Hi Sens 6Hr 23.71 ng/L (0-15) H 03/02/22 19:45 Troponin T Hi Sens 6Hr Delta 3.71 ng/L (0-12) 03/02/22 19:45 NT-Pro-B Natriuret Pep 2102 pg/mL (0-125) H 03/02/22 13:25 Total Protein 5.5 g/dL (6.6-8.7) L 03/04/22 04:19 Albumin 2.7 g/dL (3.5-5.2) L 03/04/22 04:19 Globulin 2.8 g/dL (1.3-4.6) 03/04/22 04:19 Triglycerides 44 mg/dL (0-150) 03/03/22 04:52 Cholesterol 92 mg/dL (0-200) 03/03/22 04:52 LDL Cholesterol, Calc 41 mg/dL (50-129) L 03/03/22 04:52 Total VLDL Cholesterol 9 mg/dL (0-30) 03/03/22 04:52 HDL Cholesterol 42 mg/dL (60-100) L 03/03/22 04:52 Cholesterol/HDL Ratio 2.19 mg/dL (1.0-5.00) 03/03/22 04:52 Lipase 8 U/L (13-60) L 03/02/22 13:25 Vitamin B12 725 pg/mL (232-1245) 03/02/22 15:41 Folate 17.9 ng/mL (4.5-32.2) 03/02/22 19:45 Procalcitonin 0.06 ng/mL (0-0.5) 03/02/22 15:41 TSH 2.79 uIU/mL (0.27-4.20) 03/02/22 15:41 Urine Color Yellow (Yellow) 03/02/22 14:10 Urine Appearance Clear (CLEAR) 03/02/22 14:10 Urine pH 6 (5-7) 03/02/22 14:10 Ur Specific [place] 1.015 (1.005-1.030) 03/02/22 14:10 Urine Protein Neg (Negative) 03/02/22 14:10 Urine Glucose (UA) Norm (Normal) 03/02/22 14:10 Urine Ketones 1+ (Negative) H 03/02/22 14:10 Urine Blood Neg (Negative) 03/02/22 14:10 Urine Nitrate Negative (Negative) 03/02/22 14:10 Urine Bilirubin Neg (Negative) 03/02/22 14:10 Urine Urobilinogen Norm mg/dL (Negative) 03/02/22 14:10 Ur Leukocyte Esterase Negative (Negative) 03/02/22 14:10 Ur Eosinophil Smear 0 (0-0) 03/02/22 14:10 Urine Eosinophils No eosinophils seen 03/02/22 14:10 Ur Random Sodium 27 mmol/L 03/02/22 14:10 Ur Random Potassium 33 mmol/L 03/02/22 14:10 Ur Random Chloride 44 mmol/L 03/02/22 14:10 Urine Creatinine 61 mg/dL (39-259) 03/02/22 14:10 Influenza Type A Ag Negative (Negative) 03/02/22 13:33 Influenza Type B Ag Negative (Negative) 03/02/22 13:33 SARS-CoV-2 Ag (Rapid) Negative (Negative) 03/02/22 13:33 Vitals Last Vital Signs Temp 97.5 F L 03/05/22 11:11 Pulse 96 03/05/22 11:11 Resp 17 03/05/22 11:11 BP 98/59 03/05/22 11:11 Pulse Ox 93 03/05/22 11:11 Discharge Plan Discharge Patient Disposition: Xfer [facility] Condition: Stable Prescriptions: New ipratropium-albuterol 0.5 mg-3 mg(2.5 mg base)/3 mL Solution For Nebulization 3 ml inhalation Q8H Qty: 300 0RF levofloxacin 500 mg tablet 500 mg PO Q24H 5 Days Qty: 5 0RF ferrous gluconate 324 mg (37.5 mg iron) Tablet 324 mg PO BIDWM Qty: 60 0RF amoxicillin-pot clavulanate [Augmentin] 500-125 mg tablet 1 tab PO BID Qty: 10 0RF Continued Pradaxa 150 mg capsule 150 mg PO BID 0RF Hold Instructions: Resume on 08/29/20. azelastine 137 mcg (0.1 %) aerosol,spray 2 spray INTRANASAL BID 0RF Rx Instructions: ALTERNATING NOSTRILS atorvastatin 20 mg tablet 20 mg PO QPM 0RF docusate sodium [Colace] 100 mg capsule 100 mg PO DAILY 0RF Anoro Ellipta 62.5-25 mcg/actuation blister with device 1 inh INHALATION Q24H 0RF albuterol sulfate [Ventolin HFA] 90 mcg/actuation HFA aerosol inhaler 4 puff INHALATION Q6H PRN (Reason: shortness of breath ) 0RF cetirizine [Zyrtec] 10 mg tablet 10 mg PO DAILY 0RF Flomax 0.4 mg Capsule 0.4 mg PO BEDTIME 0RF lorazepam 2 mg/mL Concentrate See Rx Instructions .ROUTE .COMPLEX 0RF Rx Instructions: 0.25ML PO EVERY 2 HOURS PRN FOR ANXIETY Centrum Silver Men 300-600-300 mcg Tablet 1 tab PO DAILY 0RF metoprolol tartrate 25 mg tablet 25 mg PO BID 0RF morphine concentrate 100 mg/5 mL (20 mg/mL) Solution See Rx Instructions .ROUTE .COMPLEX 0RF Rx Instructions: 0.5ML PO EVERY 2 HOURS PRN SOB OR PAIN trazodone 150 mg tablet 150 mg PO BEDTIME 0RF potassium gluconate 595 mg (99 mg) Tablet 595 mg PO DAILY 0RF acetaminophen 500 mg Tablet 1,000 mg PO Q6H PRN (Reason: Pain) 0RF Certavite-Antioxidant 18-400 mg-mcg tablet 1 tab PO DAILY 0RF Pacerone 200 mg tablet 200 mg PO BID Qty: 0 0RF Changed clonazepam 1 mg tablet 0.5 mg PO DAILY Qty: 0 0RF Discharge Orders: Discharge Order (Routine); Ordered 03/05/22 Ordered By: Carl Crowe Referrals: Luis Alberto Brooke MD [Primary Care Provider] - 1 week Discharge Diet: Regular Discharge Activity: Resume usual activity and Increase activity as tolerated Patient Instructions: Amoxicillin/Clavulanate Potassium (By mouth), Levofloxacin (By mouth), Opioid Safety Activity Restrictions/Additional Instructions: Please continue fluid restriction going forward up to 1200 to 1500 cc/day. Repeat BMP in 1 week. Patient should take Augmentin and Levaquin with IV antibiotics for next 5 days. He should be doing DuoNebs nebulization 3 times a day going forward. Discharge Attestations Time Spent in Discharge Care*: greater than 30 min Specific Discharge Activities: educating patient, discussing with case mgr/social workers/dc planners, documenting/other paperwork and evaluating patient/reviewing data Status at Discharge: Cognitive status at discharge: mildly impaired cognition , Behavioral status at discharge: cooperative , Functional status at discharge: other assisted ambulation , Overall status at discharge: patient is back to baseline Quality Metrics Clinical Quality Measures [ No reported AMI, CVA or VTE this stay] Coding Level of Care Code Acute [facility] DC note Diagnoses Altered mental status R41.82 Hyponatremia E87.1 Hypoxemia R09.02 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
[2022-03-05 12:27] LABS: Albumin Level 2.6 g/dL (3.5-5.2); Alkaline Phosphatase 88 IU/L (40-130); Blood Urea Nitrogen 10 mg/dL (8-23); Carbon Dioxide 30 mmol/L (22-29); Chloride 89 mmol/L (98-107); Glomerular Filtration Rate 83.9 mL/min (90-130); Glucose 110 mg/dL (65-115); Osmolality Calculated 258 mOsm/kg (285-295); Sodium 124 mmol/L (136-145); Total Bilirubin 0.3 mg/dL (0.15-1.2); Total Protein 5.6 g/dL (6.6-8.7)
[2022-03-05 12:36] LABS: Alanine Aminotransferase 33 U/L (0-41); Anion Gap 9.5 (5-19); Aspartate Amino Transferase 34 U/L (0-40); Potassium 4.5 mmol/L (3.5-5.1)
--- NOTE | 2022-03-05 14:16 | PC.NURSE ---
dc'd pts piv, margot drew. report called to Elizabeth at [facility]. pt left via wheelchair to transport ride. all belongings sent with patient.
== END 2022-03-05 14:15 | disposition skilled nursing facility (03) | DRG 644 ==
LOC: ER 13:28 → ICU 15:36 → MEDSURG 16:35
PROVIDERS: Admitting Provider Student in an Organized Health Care Education/Training Program; Emergency Provider Emergency Medicine; PCP Family Medicine; Visit Provider Student in an Organized Health Care Education/Training Program
DX: E22.2 Syndrome of inappropriate secretion of antidiuretic hormone (principal); C34.12 Malignant neoplasm of upper lobe, left bronchus or lung; J44.1 Chronic obstructive pulmonary disease with (acute) exacerbation; I48.92 Unspecified atrial flutter; F25.0 Schizoaffective disorder, bipolar type; E88.01 Alpha-1-antitrypsin deficiency; R60.0 Localized edema; E89.0 Postprocedural hypothyroidism; R63.1 Polydipsia; R09.02 Hypoxemia; R32 Unspecified urinary incontinence; R39.198 Other difficulties with micturition; Z79.01 Long term (current) use of anticoagulants; Z87.891 Personal history of nicotine dependence; Z66 Do not resuscitate
CPT/HCPCS: 36415; 51702; 70450; 71045; 71250; 80048; 80053; 80061; 81003; 82436; 82570; 82607; 82746; 83036; 83540; 83550; 83690; 83735; 83880; 84100; 84133; 84145; 84300; 84443; 84484; 85025; 85999; 86403; 87426; 87449; 87804; 93005; 94640; 96365; 96367; 96375; 99285; J0692; J1940; J2543; J3370; J7050; J7626

== ENCOUNTER 2022-05-14 07:56 | Emergency (ER) | payer MEDICARE, MEDICAID, SELFPAY ==
[2022-02-12 08:14] VITALS: BP 110/75; BMI 26.6
[2022-05-14] VITALS (9 sets, daily range): BP systolic 102–138; BP diastolic 45–92; PULSE 78–100; RESP 16–20; TEMP 36.2; O2SAT 95–97
--- NOTE | 2022-05-14 08:00 | XR_ITS ---
WS: [id number] Left hip, 2 views, AP pelvis, 05/14/2022 Clinical Data: fall Comparison: None. Findings: No fractures or dislocations are seen. Both hips are intact. There is minimal osteoarthritic change o f the hips. The soft tissues are not remarkable. The adjacent pelvis is normal. XR/XR hip LT 2-3V wo/w pel* [id number] Impression: Negative pelvis and left hip. Tonnis classification:
--- NOTE | 2022-05-14 08:02 | ECG_ITS ---
[facility] Test Date: 2022-05-14 Pat Name: Bradley Edwards Department: Room: Gender: Male Roll Tender: : 1955 Requested By: Navdeep Lopez Order Number: [id number] Usman MD: Martha Garcia M.D. Measurements Intervals [place] Rate: 86 P: MD: QRS: 71 QRSD: 96 T: 42 QT: 361 QTc: 433 Interpretive Statements ATRIAL FLUTTER MODERATE ST DEPRESSION [0.05+ mV ST DEPRESSION] Compared to ECG 03/02/2022 22:21:06 Ectopic atrial rhythm no longer present First degree AV block no longer present Prolonged QT interval no longer present ST (T wave) deviation still present Electronically Signed On 05-14-2022 16:24:06 CDT by Martha Garcia M.D. [id number]
--- NOTE | 2022-05-14 08:14 | ED_ITS ---
HPI - Fall General: Chief Complaint: Fall Stated Complaint: FALL/ L HIP PAIN Time Seen by Provider: 05/14/22 07:56 Source: patient Mode of arrival: EMS History of Present Illness: 66-year-old male who is resident of a [facility] arrives by EMS. He fell out of bed and is complaining of left hip pain he was given morphine for his pain. He is somewhat groggy on arrival. Interestingly complains of left hip pain but is able to lift his left leg independently with no discomfort. Patient has a known history of lung CA with metastasis and currently is on hospice. He not strike his head there is no loss of consciousness. He denies any other injury or discomfort. MD complaint: fall Onset (ago): minute(s) Fall from: out of bed Fall witnessed: yes, by living facility staff Place fall occurred: [facility] Loss of consciousness: None Prolonged down time: no Symptoms prior to fall: none Location of injury: other (Left hip) Quality: sharp Associated symptoms-after fall: Reports difficulty walking and weakness; Denies abdominal pain, chest pain, confusion, headache(s), hematuria, lightheadedness, neck pain, numbness, short of breath or vertigo Review of Systems Const: Denies: fever(s), chills or body aches ENMT: Denies: throat pain, ear or mastoid pain, nasal discharge or nasal congestion Card: Denies: chest pain or lightheadedness Resp: Denies: dyspnea, productive cough or non-productive cough GI: Denies: abdominal pain, nausea or vomiting : Denies: hematuria Musc: Denies: neck pain Skin/Breast: Denies: rash or pruritus Neuro: Reports: difficulty walking; Denies: headache(s), vertigo or confusion PFS ED PFSH: Medical History Mksto-1-qhlvfyqwmif deficiency Anticoagulation adequate Pradaxa Chronic back pain Cigarette smoker COPD (chronic obstructive pulmonary disease) Hx of atrial flutter Hyperlipidemia Hypoxemia Insomnia Other schizophrenia 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 Schizoaffective disorder, bipolar type Surgical History S/P thyroidectomy Family History Other Cancer Social History Smoking and tobacco status: former smoker Quit status (tobacco): not considering quitting Second hand smoke exposure: No Smoking risk assessment/counseling performed?: Yes Alcohol intake: former Adopted: No Caregiver/support person: Yes Lives independently: Yes Household members: none Housing: Apartment Marital status: Single Number of children: 0 Number of grandchildren: 0 Highest education level completed: Some College, No Degree service: Yes Current occupational status: disabled Pets and animals: No History of recent travel: No Leisure activites: music and other Leisure activities details: watch news Current gender identity: Male Nenita/Synagogue: [employer] Special nenita needs: No Agree to transfusion: Yes Financial difficulty paying for basics: Not Very Hard Physical Exam Const: GENERAL APPEARANCE: cooperative and comfortable ORIENTATION/CONSCIOUSNESS: Yes awake HENMT: COMMON NORMALS: normocephalic, atraumatic and hearing grossly normal bilaterally HEAD & SCALP: normocephalic and atraumatic Neck/C-Spine: COMMON NORMALS: full ROM, no lymphadenopathy, supple and no JVD Lymph: LYMPHATIC: no lymphadenopathy noted and no lymphedema noted Resp: COMMON NORMALS: normal respiratory effort, No retractions, No use of accessory muscles and clear to auscultation bilaterally AUSCULTATION: clear to auscultation bilaterally Cardio: COMMON NORMALS: no JVD, regular rate, regular rhythm and No murmurs present (Cardio) RATE: regular rate RHYTHM: regular rhythm GI: COMMON NORMALS: Soft to palpation and No hepatosplenomegaly present AUSCULTATION: Yes normoactive bowel sounds PALPATION: Yes Soft to palpation, No Tenderness to palpation present (GI), No Guarding due to palpation present (GI) and Yes No hepatosplenomegaly present Extremity: COMMON NORMALS: normal to inspection, capillary refill normal, no clubbing, cyanosis or edema, no calf tenderness and no pedal edema Skin: COMMON NORMALS: no rashes or lesions noted GENERAL SKIN EXAM: no rashes or lesions noted Course Vital Signs: Vital signs: Vital Signs Temperature 97.1 F L 05/14/22 07:59 Pulse Rate 78 05/14/22 13:07 Respiratory Rate 17 05/14/22 13:07 Blood Pressure 107/45 05/14/22 13:07 Pulse Oximetry 96 05/14/22 13:07 Oxygen Delivery Me thod 05/14/22 13:07 Oxygen Flow Rate 4 05/14/22 13:07 MDM - Fall Medical Decision Making X-ray negative patient continues to complain of pain CT done is also negative for fracture discharge back to [facility] continue routine cares and previous prescriptions and follow-up as needed. Medical Records I reviewed the patient's medical records. Lab Data I reviewed the patient's lab results. Radiology Impressions Hip/Pelvis X-Ray 05/14/22 08:00 Impression: Negative pelvis and left hip. Tonnis classification: Hip CT 05/14/22 08:39 IMPRESSION: 1. No acute fractures 2. Moderate osteoarthritis LEFT hip with joint space narrowing and hypertrophic changes about the acetabulum 3. Fat-containing LEFT femoral hernia. Discharge Plan Discharge Patient Disposition: Home Clinical Impression: Fall Condition: Stable Prescriptions: No Action azelastine 137 mcg (0.1 %) aerosol,spray 2 spray INTRANASAL BID Rx Instructions: ALTERNATING NOSTRILS docusate sodium [Colace] 100 mg capsule 100 mg PO DAILY Anoro Ellipta 62.5-25 mcg/actuation blister with device 1 inh INHALATION Q24H albuterol sulfate [Ventolin HFA] 90 mcg/actuation HFA aerosol inhaler 4 puff INHALATION Q6H PRN (Reason: shortness of breath ) cetirizine [Zyrtec] 10 mg tablet 10 mg PO DAILY fluphenazine HCl 5 mg tablet 5 mg PO DAILY Qty: 30 5RF tamsulosin [Flomax] 0.4 mg Capsule 0.4 mg PO BEDTIME lorazepam 2 mg/mL Concentrate See Rx Instructions .ROUTE .COMPLEX Rx Instructions: 0.25ML PO EVERY 2 HOURS PRN FOR ANXIETY metoprolol tartrate 25 mg tablet 25 mg PO BID morphine concentrate 100 mg/5 mL (20 mg/mL) Solution See Rx Instructions .ROUTE .COMPLEX Rx Instructions: 0.5ML PO EVERY 2 HOURS PRN SOB OR PAIN trazodone 150 mg tablet 150 mg PO BEDTIME ipratropium-albuterol 0.5 mg-3 mg(2.5 mg base)/3 mL Solution For Nebulization 3 ml inhalation Q8H Qty: 300 0RF ferrous gluconate 324 mg (37.5 mg iron) Tablet 324 mg PO BIDWM Qty: 60 0RF acetaminophen 500 mg Tablet 1,000 mg PO Q6H PRN (Reason: Pain) bisacodyl 10 mg Suppository 10 mg OH DAILY PRN (Reason: Constipation) Klonopin 0.5 mg tablet 0.5 mg PO QPM Discharge Orders: Discharge ED (Routine); Ordered 05/14/22 Ordered By: Navdeep Frank Referrals: Luis Alberto Brooke MD [Primary Care Provider] - Patient Instructions: Opioid Safety, Pain Management Activity Restrictions/Additional Instructions: X-rays and CT of the hip negative for fracture. Return to the [facility] continue same medications and care plans. Coding Level of Care Code ED Hand Coremaker for Chg Fwd Exam Comprehensive
--- NOTE | 2022-05-14 08:39 | CT_ITS ---
WS: [id number] NONCONTRAST CT LEFT HIP TECHNIQUE: Noncontrast CT LEFT with coronal and sagittal reformatted images. CLINICAL INFORMATION: pain after fall COMPARISON: None. DLP: 250.[address] scans at [facility] use at least one of these dose optimization techniques: automated e xposure control; mA and/or kV adjustment per patient size (includes targeted exams where dose is matc hed to clinical indication); or iterative reconstruction. FINDINGS: Moderate osteoarthritis LEFT hip with joint space narrowing. Hypertrophic changes about the acetabulu m. Normal femoral head and neck. No acute fractures. No evidence of avascular necrosis. Enthesophyte along the greater trochanter bursa. LEFT pubic rami are normal. Vascular calcification. Fat-containing LEFT femoral hernia. CT/CT hip LT wo con* [id number] IMPRESSION: 1. No acute fractures 2. Moderate osteoarthritis LEFT hip with joint space narrowing and hypertrophi c changes about the acetabulum 3. Fat-containing LEFT femoral hernia.
[2022-05-14] MEDS: acetaminophen 500 mg Tablet 1000 MG PO (13:22)
[2022-05-14] MEDS: sodium chloride 0.9% 1,000 ML 999 ML IV (14:23)
== END 2022-05-14 20:45 | disposition home or self-care (01) ==
PROVIDERS: Emergency Provider Family Medicine; PCP Family Medicine
DX: M25.552 Pain in left hip (principal)
CPT/HCPCS: 73502; 73700; 93005; 96360; 99285; J7030